=== PATIENT | female | born 1975 ===

== ENCOUNTER 2020-09-20 14:15 | Outpatient (REF) | payer OTHER, SELFPAY | END 2020-09-20 14:16 | disposition home or self-care (01) | LOC: HO.LAB 14:15 | PROVIDERS: Visit Provider Internal Medicine | DX: Z20.828 Contact with and (suspected) exposure to other viral communicable diseases (principal) | CPT/HCPCS: 36415; C9803; U0003 ==

== ENCOUNTER 2020-12-21 11:29 | Outpatient (REF) | payer OTHER, SELFPAY ==
--- NOTE | ~2020-12-21 | XR_ITS ---
EXAMINATION: XR CHEST CLINICAL INFORMATION: Hypertension and palpitations COMPARISON: Previous chest x-ray August 2019 TECHNIQUE: 2 views of the chest were obtained. FINDINGS: No significant abnormality is noted involving the heart, lungs, mediastinum, bony thorax or soft tissues. XR/XR chest 2V IMPRESSION: Unremarkable examination.
== END 2020-12-21 11:30 | disposition home or self-care (01) ==
LOC: HO.XRAY 11:29
PROVIDERS: PCP Registered Nurse; Visit Provider Registered Nurse
DX: M62.830 Muscle spasm of back (principal); R00.2 Palpitations; I10 Essential (primary) hypertension
CPT/HCPCS: 71046

== ENCOUNTER 2021-01-17 11:16 | Outpatient (REF) | payer OTHER, SELFPAY ==
[2021-01-17 13:07] LABS: MANUAL DIFF FLAG NO
[2021-01-17 13:23] LABS: Basophils Percent Auto 0.4 % (0-2); Eosinophils Absolute Auto 0.3 X10*3/uL (0.0-0.4); Eosinophils Percent Auto 2.3 % (0-4); Hematocrit 47.1 % (37-47); Imm Gran Abs Auto 0.03 X10*3/uL (0.00-0.03); Imm Gran Pct Auto 0.3 % (0.0-0.4); Lymphocytes Absolute Auto 2.1 X10*3/uL (1.2-4.9); Lymphocytes Percent Auto 19.9 % (20-40); Mean Corpuscular Hemoglobin 30.1 pg (27.0-33.0); Mean Corpuscular Volume 88.5 fL (80-98); Mean Platelet Volume 11.4 fL (9.4-12.3); Monocytes Absolute Auto 0.7 X10*3/uL (0.1-1.2); Monocytes Percent Auto 6.6 % (2-11); Neutrophils Absolute Auto 7.6 X10*3/uL (2.0-8.3); Neutrophils Percent Auto 70.5 % (45-73); Platelet Count 232 X10*3/uL (160-400); Red Blood Count 5.32 X10*6/uL (4.20-5.50); Red Cell Distribution Width 12.7 % (11.0-16.0); White Blood Count 10.7 X10*3/uL (4.8-10.8)
[2021-01-17 13:45] LABS: Anion Gap 10 (12-20); Blood Urea Nitrogen 11 mg/dL (9-16); Carbon Dioxide 28 mmol/L (22-29); Chloride 107 mmol/L (96-108); Estimated Glomerular Filt Rate > 60; Glucose Random 105 mg/dL (60-115); Potassium 4.2 mmol/L (3.3-5.1); Sodium 141 mmol/L (135-145)
== END 2021-01-17 11:17 | disposition home or self-care (01) ==
LOC: HO.LAB 11:16
PROVIDERS: PCP Registered Nurse; Visit Provider Internal Medicine
DX: B94.8 Sequelae of other specified infectious and parasitic diseases (principal); R63.4 Abnormal weight loss; M54.9 Dorsalgia, unspecified; R06.02 Shortness of breath; G35 Multiple sclerosis; F17.210 Nicotine dependence, cigarettes, uncomplicated; Z88.0 Allergy status to penicillin; Z91.013 Allergy to seafood; Z79.52 Long term (current) use of systemic steroids; Z79.899 Other long term (current) drug therapy
CPT/HCPCS: 36415; 80048; 85025; 99202

== ENCOUNTER → 2021-02-07 11:41 | Outpatient (BNVA) | payer OTHER, SELFPAY | PROVIDERS: PCP Registered Nurse; Visit Provider Internal Medicine | DX: R06.00 Dyspnea, unspecified (principal); F17.200 Nicotine dependence, unspecified, uncomplicated; B94.8 Sequelae of other specified infectious and parasitic diseases; M54.9 Dorsalgia, unspecified | CPT/HCPCS: 99212 ==

== ENCOUNTER 2021-02-25 11:01 | Outpatient (REF) | payer OTHER, SELFPAY | END 2021-02-25 11:02 | disposition home or self-care (01) | LOC: HO.RESP 11:01 | PROVIDERS: PCP Registered Nurse; Visit Provider Internal Medicine | DX: R06.00 Dyspnea, unspecified (principal); F17.200 Nicotine dependence, unspecified, uncomplicated | CPT/HCPCS: 94060; 94727; 94729 ==

== ENCOUNTER → 2021-03-17 09:08 | Outpatient (REF) | payer OTHER, SELFPAY | LOC: HO.CARD 09:08 | PROVIDERS: Visit Provider Internal Medicine Cardiovascular Disease | DX: R07.9 Chest pain, unspecified (principal); R06.02 Shortness of breath | CPT/HCPCS: 93017 ==

== ENCOUNTER → 2021-03-30 09:52 | Outpatient (REF) | payer OTHER, SELFPAY ==
--- NOTE | ~2021-03-30 | NM_ITS ---
Myocardial perfusion study Indication: Chest pain to evaluate for myocardial ischemia Technique: The patient was brought in for a Lexiscan perfusion study on 03/30/2021. Patient performed low-level exercise and was injected 0.4 mg of Lexiscan intravenously. Within a minute of injection, 25 mCi of sestamibi was given intravenously. Images were obtained using the SPECT gamma camera interlaced with the gating device. Images were obtained in supine position. Resting perfusion study was performed on 03/31/2021. Patient was administered 25 mCi of sestamibi intravenously at rest. Images were then obtained in supine position. Images obtained with and without CT attenuation. Total DLP 190 mGy-cm Images were processed with the software and compared side to side in short axis, horizontal long axis and vertical long axis views. Findings: The stress perfusion study showed nonattenuated images show moderately to severely reduced uptake in the distal lateral, distal anterior as well as mid inferolateral wall of the LV myocardium. Is also mildly reduced uptake in the apex of the LV myocardium attenuation corrected images show mildly reduced uptake in the anterior and apical wall of the LV myocardium.. The gated study shows normal LV systolic function with calculated LVEF of 66%. LV cavity is normal in size. The gated study shows normal systolic wall thickening and contraction of segments. Resting study shows nonattenuated images show prominent in the distal lateral, distal, mid anterolateral wall of the LV myocardium. Uptake is unchanged. Attenuation corrected images are suboptimal with severely reduced uptake in the distal anterior, moderately reduced uptake in the apex of the LV myocardium.. Gating at rest reveals normal systolic wall motion with visually estimated ejection fraction at greater than 60%. The findings are consistent with equivocal findings. Attenuation corrected images show reversal position, however nonattenuated images show reversible defect in the distal lateral, anterior and mid anterolateral wall suggestive of ischemia in the mid to distal LAD territory. NM/NM leroy perf SPECT rest & str Impression: 1. Myocardial perfusion imaging study shows possible ischemia in mid to distal LAD territory 2. Gated LVEF is 66% 3. Transient ischemic dilatation not present EKG is nondiagnostic for ischemia
--- NOTE | 2021-03-30 10:00 | CA_ITS ---
Acquisition Time: 2021-03-30 10:16:45 Total Exercise Time: 00:02:00 Test Indications: Dyspnea Medications: LORAZAPAM ATOIRVASTATIN AMLODIPINE PREDNISONE TOPIRAMATE Protocol: LEXISCAN Max HR: 101 BPM 58% of Pred: 173 BPM Max BP: 106/064 mmHG Max Work Load: 1.0 METS Pharmacological stress test using Lexiscan while sitting and kicking her L foot. Pt tolerated well denies any anginal sx. EKG without arrhythmias, non-diagnostic for ischemia. Nuclear images to follow. Normotensive response to test. Test reviewed with Dr. Del Angel. Referred By: Jose Ashby Overread By: Isatu Diallo NP
== END ==
LOC: HO.CARD 09:52
PROVIDERS: Visit Provider Internal Medicine Cardiovascular Disease
DX: R07.9 Chest pain, unspecified (principal); R06.02 Shortness of breath
CPT/HCPCS: 78452; 93017; A9500; J0280; J2785

== ENCOUNTER 2021-05-10 07:18 | Emergency (ER) | payer OTHER, SELFPAY ==
--- NOTE | ~2021-05-10 | US_ITS ---
EXAMINATION: US PELVIS CLINICAL INFORMATION: Pelvic pain with vaginal bleeding COMPARISON: Ultrasound pelvis 10/17/2018. TECHNIQUE: Ultrasound of the pelvis is performed using both transabdominal and transvaginal transducers along with Doppler. Transvaginal imaging is performed due to inadequate visualization transabdominally. FINDINGS: The uterus is anteverted and retroflexed measuring 10.1 cm in length, 3.2 cm in AP and 5.6 cm in transverse dimension. Previously visualized fundal fibroid is not seen at this time. However there is heterogeneous area in the fundus. Endometrial thickness measures 0.4 cm. The right ovary measures 3.9 x 2.5 x 2 0.9 mL in volume 14.8 mL. There is anechoic cyst measuring 2.9 x 2.2 x 2.2 cm. Previously right ovary measured 3.4 x 3.1 x 2.4 cm and volume 12.9 mL. The left ovary measures 1.6 x 1.3 x 1.6 cm and volume 1.7 mL. Previously left ovary measured 2.2 x 1.2 x 2.2 cm and volume 2.9 mL. US/US pelvic and transvaginal IMPRESSION: 2.9 cm right ovarian cyst. Otherwise ovary is unremarkable. The uterus is unremarkable.
--- NOTE | 2021-05-10 07:53 | ED.ABDPAIN ---
HPI - Abdominal Pain General Chief Complaint: Abdominal Pain Stated Complaint: abdominal pain Time Seen by Provider: 05/10/21 07:52 Source: patient and EMS Mode of arrival: EMS Limitations: no limitations History of Present Illness HPI narrative: 45 yo female with low back pain, pelvic pain new onset of vaginal bleeding though her last menses was over 7 years ago, c/o cramping and sweating at night MD elicited complaint: abdominal pain Pertinent past history: none Onset (ago): day(s) (7) Pain Consistency: intermittent Location: suprapubic Severity: moderate Quality: cramping Radiation: none Migration to: no migration Exacerbating factors: nothing Relieving factors: nothing Associated symptoms: other (vaginal bleeding ) Related Data Home Medications Medication Instructions Recorded Confirmed albuterol sulfate 2.5 mg INHALATION Q4-6H PRN 01/17/21 albuterol sulfate 90 mcg/actuation 1 inh INHALATION QID 01/17/21 aerosol inhaler amlodipine 10 mg tablet 10 mg PO DAILY 01/17/21 aspirin 81 mg tablet,delayed 81 mg PO DAILY 01/17/21 release atorvastatin 20 mg tablet 20 mg PO BEDTIME 01/17/21 calcium polycarbophil 625 mg 1,250 mg PO DAILY 01/17/21 tablet (Fiber Laxative (calcium polycarbophil)) cholecalciferol (vitamin D3) 50 50 mcg PO DAILY 01/17/21 mcg (2,000 unit) capsule cyanocobalamin (vitamin B-12) 1,000 mcg PO DAILY 01/17/21 1,000 mcg capsule entecavir 1 mg tablet 1 mg PO DAILY 01/17/21 ibuprofen 600 mg tablet 600 mg PO Q8H PRN 01/17/21 levetiracetam 750 mg tablet 1,250 mg PO DAILY tab 01/17/21 lorazepam 1 mg tablet 1 mg PO TID PRN 01/17/21 mirtazapine 30 mg tablet 30 mg PO BEDTIME 01/17/21 naproxen 500 mg tablet 500 mg PO BID 01/17/21 prednisone 10 mg tablet 10 mg PO DAILY 01/17/21 topiramate 50 mg tablet 150 mg PO DAILY tab 01/17/21 Previous Rx's Medication Instructions Recorded cyclobenzaprine 10 mg tablet 10 mg PO TID PRN #14 tab 05/10/21 ondansetron 4 mg disintegrating 4 mg PO Q8H PRN #20 tab 05/10/21 tablet Allergies Allergy/AdvReac Type Severity Reaction Status Date / Time Penicillins [PENICILLINS] Allergy Severe HIVES Verified 02/07/21 11:50 sardine Allergy Unknown rash Uncoded 01/17/21 11:39 Review of Systems Review of Systems Constitutional : No Fever, No Chills ENT/Mouth : No sore throat, No Rhinorrhea Eyes: No Eye Pain, No Redness Cardiovascular : No Chest Pain, No SOB Respiratory : No Cough, No Sputum, No Wheezing Gastrointestinal : no Nausea, No Vomiting, No Diarrhea, positive abdominal pain, Genitourinary : positive irregular bleeding, No Dysuria, No Urinary Frequency, positive pelvic pain Musculoskeletal : No Myalgias, pos back pain Skin : No rash Neuro : No Weakness, No Headache Psych : No Anxiety/Panic, No Depression Heme/Lymph: No bruising, No Lymphadenopathy Endocrine : No Polyuria, No Polydipsia All other systems reviewed and are negative Physical Exam Vital Signs: Vital Signs: Last Vital Signs Temp 99.2 F 05/10/21 08:16 Pulse 94 05/10/21 08:16 Resp 18 05/10/21 08:16 BP 133/69 05/10/21 08:16 Pulse Ox 98 05/10/21 08:16 Body Mass Index 33.3 Appearance: Alert. Oriented X3. No acute distress. Eyes: Pupils equal, round and reactive to light. ENT: Pharynx normal. Neck: Normal inspection. Neck supple. CVS: Normal heart rate and rhythm. Pulses normal. Respiratory: No respiratory distress. Breath sounds normal. Abdomen: Soft and mild suprapubic ttp no rebound or guarding Back: no CVA ttp Skin: Skin warm and dry. Normal skin color. Normal skin turgor. Extremities: No lower extremity edema. No calf ttp Neuro: Oriented X 3. No motor deficit. No sensory deficit. Course Course Course Narrative: dehydration and ovarian cyst will need to follow up with OBGYN MDM - Abdominal Pain MDM Narrative Medical decision making narrative: 45 yo female with low back pain no b/b incontinence, no saddle anesthesia no AC therapy. Has not had period in 7 years and started spotting again. At this time will need labs, UA, pelvic US for mass. PO pain control suspect po DUB vs mass Lab Data Result diagrams: 05/10/21 09:11 05/10/21 09:11 Labs: Lab Results 05/10/21 05/10/21 05/10/21 Range/Units 09:11 09:11 09:11 WBC 9.3 (4.8-10.8) X10*3/uL RBC 4.67 (4.20-5.50) X10*6/uL Hgb 13.9 (12.0-16.0) g/dl Hct 40.4 (37-47) % MCV 86.5 (80-98) fL MCH 29.8 (27.0-33.0) pg MCHC 34.4 (31.0-35.0) g/dl RDW 12.8 (11.0-16.0) % Plt Count 167 D (160-400) X10*3/uL MPV 10.5 (9.4-12.3) fL Immature Gran % (Auto) 0.4 (0.0-0.4) % Neut % (Auto) 84.5 H (45-73) % Lymph % (Auto) 6.9 L (20-40) % Summers % (Auto) 7.7 (2-11) % Eos % (Auto) 0.1 (0-4) % Baso % (Auto) 0.4 (0-2) % Lymph # (Auto) 0.6 L (1.2-4.9) X10*3/uL Summers # (Auto) 0.7 (0.1-1.2) X10*3/uL Eos # (Auto) 0.0 (0.0-0.4) X10*3/uL Baso # (Auto) 0.0 (0.0-0.2) X10*3/uL Abs Immat Gran (auto) 0.04 H (0.00-0.03) X10*3/uL Absolute Neuts (auto) 7.9 (2.0-8.3) X10*3/uL Absolute Nucleated RBC 0.000 (0.0-0.012) X10*3/uL Nucleated RBC % (auto) 0.0 (0.0-0.2) /100WBC PT 14.2 H (9.9-13.0) SEC INR 1.2 H (0.9-1.1) APTT 31.6 (24.1-38.0) SEC Sodium 147 H (135-145) mmol/L Potassium 3.6 (3.3-5.1) mmol/L Chloride 116 H (96-108) mmol/L Carbon Dioxide 19 L (22-29) mmol/L Anion Gap 16 (12-20) BUN 9 (9-16) mg/dL Creatinine 0.80 (0.5-1.4) mg/dL Estim Creat Clear Calc 86.5 Estimated GFR > 60 Random Glucose 125 H (60-115) mg/dL Calcium 8.8 D (8.4-10.2) mg/dL Total Bilirubin 0.5 (0.0-1.0) mg/dL Direct Bilirubin 0.2 (0.0-0.5) mg/dL AST 13 (5-31) U/L ALT 17 (0-31) U/L Alkaline Phosphatase 76 (39-117) U/L Total Protein 6.6 (6.5-8.0) g/dL Albumin 4.1 (3.5-5.0) g/dL Urine Color Urine Appearance Urine pH (5.0-8.0) Ur Specific [place] (1.005-1.025) Urine Protein (NEG-TRACE) MG/DL Urine Glucose (UA) (NEG) MG/DL Urine Ketones (NEG) MG/DL Urine Blood (NEG) Urine Nitrite (NEG) Ur Leukocyte Esterase (NEG) Urine RBC (0) /HPF Urine WBC (0-4) /HPF Ur Squamous Epith Cells /LPF Urine Bacteria /LPF COVID-19 ([facility]) (Negative) COVID-19 Clin Com 05/10/21 05/10/21 Range/Units 09:23 09:23 WBC (4.8-10.8) X10*3/uL RBC (4.20-5.50) X10*6/uL Hgb (12.0-16.0) g/dl Hct (37-47) % MCV (80-98) fL MCH (27.0-33.0) pg MCHC (31.0-35.0) g/dl RDW (11.0-16.0) % Plt Count (160-400) X10*3/uL MPV (9.4-12.3) fL Immature Gran % (Auto) (0.0-0.4) % Neut % (Auto) (45-73) % Lymph % (Auto) (20-40) % Summers % (Auto) (2-11) % Eos % (Auto) (0-4) % Baso % (Auto) (0-2) % Lymph # (Auto) (1.2-4.9) X10*3/uL Summers # (Auto) (0.1-1.2) X10*3/uL Eos # (Auto) (0.0-0.4) X10*3/uL Baso # (Auto) (0.0-0.2) X10*3/uL Abs Immat Gran (auto) (0.00-0.03) X10*3/uL Absolute Neuts (auto) (2.0-8.3) X10*3/uL Absolute Nucleated RBC (0.0-0.012) X10*3/uL Nucleated RBC % (auto) (0.0-0.2) /100WBC PT (9.9-13.0) SEC INR (0.9-1.1) APTT (24.1-38.0) SEC Sodium (135-145) mmol/L Potassium (3.3-5.1) mmol/L Chloride (96-108) mmol/L Carbon Dioxide (22-29) mmol/L Anion Gap (12-20) BUN (9-16) mg/dL Creatinine (0.5-1.4) mg/dL Estim Creat Clear Calc Estimated GFR Random Glucose (60-115) mg/dL Calcium (8.4-10.2) mg/dL Total Bilirubin (0.0-1.0) mg/dL Direct Bilirubin (0.0-0.5) mg/dL AST (5-31) U/L ALT (0-31) U/L Alkaline Phosphatase (39-117) U/L Total Protein (6.5-8.0) g/dL Albumin (3.5-5.0) g/dL Urine Color COLORLESS Urine Appearance CLEAR Urine pH 6.0 (5.0-8.0) Ur Specific [place] <= 1.005 (1.005-1.025) Urine Protein NEG (NEG-TRACE) MG/DL Urine Glucose (UA) NEG (NEG) MG/DL Urine Ketones NEG (NEG) MG/DL Urine Blood 1+ H (NEG) Urine Nitrite NEG (NEG) Ur Leukocyte Esterase TRACE H (NEG) Urine RBC 0 (0) /HPF Urine WBC 1-4 (0-4) /HPF Ur Squamous Epith Cells TRACE /LPF Urine Bacteria NONE /LPF COVID-19 ([facility]) Negative (Negative) COVID-19 Clin Com See Note Discharge Plan Discharge Clinical Impression: Acute dehydration, Ovarian cyst, DUB (dysfunctional uterine bleeding) Patient Disposition: Home, Self-Care Instructions: Dysfunctional Uterine Bleeding (ED), Ovarian Cyst (ED), Dehydration (ED) Additional Instructions: return to ED for any worsening symptoms or concerns you need to follow up with OBGYN you need to drink 60 ounces of water a day for the next 3 days you are dehydrated Prescriptions: New cyclobenzaprine 10 mg tablet 10 mg PO TID PRN (Reason: muscle spasm) Qty: 14 RF: 0 ondansetron 4 mg tablet,disintegrating 4 mg PO Q8H PRN (Reason: nausea and vomiting) Qty: 20 RF: 0 No Action levetiracetam 750 mg tablet 1,250 mg PO DAILY RF: 0 mirtazapine 30 mg tablet 30 mg PO BEDTIME RF: 0 topiramate 50 mg tablet 150 mg PO DAILY RF: 0 prednisone 10 mg tablet 10 mg PO DAILY RF: 0 entecavir 1 mg tablet 1 mg PO DAILY RF: 0 naproxen 500 mg tablet 500 mg PO BID RF: 0 albuterol sulfate 90 mcg/actuation HFA aerosol inhaler 1 inh inhalation QID RF: 0 cyanocobalamin (vitamin B-12) 1,000 mcg capsule 1,000 mcg PO DAILY RF: 0 amlodipine 10 mg tablet 10 mg PO DAILY RF: 0 atorvastatin 20 mg tablet 20 mg PO BEDTIME RF: 0 aspirin 81 mg tablet,delayed release (DR/EC) 81 mg PO DAILY RF: 0 calcium polycarbophil [Fiber Laxative (ca polycarbo)] 625 mg tablet 1,250 mg PO DAILY RF: 0 cholecalciferol (vitamin D3) 50 mcg (2,000 unit) capsule 50 mcg PO DAILY RF: 0 ibuprofen 600 mg tablet 600 mg PO Q8H PRNRF: 0 lorazepam 1 mg tablet 1 mg PO TID PRNRF: 0 albuterol sulfate 2.5 mg /3 mL (0.083 %) solution for nebulization 2.5 mg inhalation Q4-6H PRNRF: 0 Referrals: David Perera MD [Physician] - 2 weeks (call for appointment in next 2 weeks) [facility] Past Medical History Attestation statement: The following information was validated with the patient. Medical History Back pain Dyspnea on exertion Post-COVID syndrome Smoker Weight loss, unintentional Social History Social History Patient Tobacco Use Status: Current everyday Tobacco user Cigarette Packs Per Day: 0.5 Years Smoked: 28 years Use of substances other than those prescribed or required for medical reasons: No Advance Directives: No Advance Directives Information Provided: No
[2021-05-10 08:04] VITALS: BP 122/78; BP 133/69; PULSE 94; PULSE 98; RESP 16; TEMP 37.3; O2SAT 97; O2SAT 98; BMI 33.3
[2021-05-10] MEDS: HYDROcodone Bit/Acetam 5/325 TABLET 1 TAB PO (08:14)
[2021-05-10] MEDS: Ondansetron ODT 4 MG TAB.RAPDIS TRANSLINGU (08:15)
[2021-05-10] MEDS: Cyclobenzaprine HCl 10 MG TABLET PO (08:15)
[2021-05-10 08:16] VITALS: BP 133/69; PULSE 94; RESP 18; TEMP 37.3; O2SAT 98
[2021-05-10 09:15] LABS: MANUAL DIFF FLAG NO
[2021-05-10 09:16] LABS: Basophils Percent Auto 0.4 % (0-2); Eosinophils Percent Auto 0.1 % (0-4); Hematocrit 40.4 % (37-47); Hemoglobin 13.9 g/dl (12.0-16.0); Imm Gran Abs Auto 0.04 X10*3/uL (0.00-0.03); Imm Gran Pct Auto 0.4 % (0.0-0.4); Lymphocytes Absolute Auto 0.6 X10*3/uL (1.2-4.9); Lymphocytes Percent Auto 6.9 % (20-40); Mean Corpuscular HGB Conc 34.4 g/dl (31.0-35.0); Mean Corpuscular Hemoglobin 29.8 pg (27.0-33.0); Mean Corpuscular Volume 86.5 fL (80-98); Mean Platelet Volume 10.5 fL (9.4-12.3); Monocytes Absolute Auto 0.7 X10*3/uL (0.1-1.2); Monocytes Percent Auto 7.7 % (2-11); Neutrophils Absolute Auto 7.9 X10*3/uL (2.0-8.3); Neutrophils Percent Auto 84.5 % (45-73); Platelet Count 167 X10*3/uL (160-400); Red Blood Count 4.67 X10*6/uL (4.20-5.50); Red Cell Distribution Width 12.8 % (11.0-16.0); White Blood Count 9.3 X10*3/uL (4.8-10.8)
[2021-05-10 09:23] LABS: INTERNATIONAL NORM RATIO 1.2 (0.9-1.1); Prothrombin Time 14.2 SEC (9.9-13.0)
[2021-05-10 09:25] LABS: Partial Thromboplastin Time 31.6 SEC (24.1-38.0)
[2021-05-10 09:45] LABS: Glucose Urine UA NEG (NEG); Leukocyte Esterase Urine TRACE (NEG); Nitrite Urine NEG (NEG); Specific Gravity - Urine <= 1.005 (1.005-1.025); UACC Culture Trigger YES; Urine Blood 1+ (NEG); Urine Ketones NEG (NEG); Urine Protein NEG (NEG-TRACE)
[2021-05-10 09:48] LABS: Appearance Urine CLEAR; Color Urine COLORLESS
[2021-05-10 09:49] LABS: Alanine Aminotransferase 17 U/L (0-31); Albumin Level 4.1 g/dL (3.5-5.0); Alkaline Phosphatase 76 U/L (39-117); Anion Gap 16 (12-20); Aspartate Amino Transferase 13 U/L (5-31); Bilirubin Direct 0.2 mg/dL (0.0-0.5); Bilirubin Total 0.5 mg/dL (0.0-1.0); Blood Urea Nitrogen 9 mg/dL (9-16); Calcium 8.8 mg/dL (8.4-10.2); Carbon Dioxide 19 mmol/L (22-29); Chloride 116 mmol/L (96-108); Creatinine Clr Calc Pharmacy 86.5; Estimated Glomerular Filt Rate > 60; Glucose Random 125 mg/dL (60-115); Potassium 3.6 mmol/L (3.3-5.1); Sodium 147 mmol/L (135-145); Total Protein 6.6 g/dL (6.5-8.0)
[2021-05-10 09:56] LABS: RBC Urine 0 /HPF (0); Squamous Epithelial Cell Urine TRACE /LPF
[2021-05-10 09:59] LABS: COVID-19 Test Negative (Negative); IDNOW Serial# 9DD0AD1C
[2021-05-10 11:04] VITALS: BP 111/64; PULSE 85; RESP 18; O2SAT 97
== END 2021-05-10 11:08 | disposition home or self-care (01) ==
PROVIDERS: Emergency Provider Emergency Medicine
DX: E86.0 Dehydration (principal); N83.201 Unspecified ovarian cyst, right side; N93.8 Other specified abnormal uterine and vaginal bleeding; Z20.822 Contact with and (suspected) exposure to COVID-19; F17.210 Nicotine dependence, cigarettes, uncomplicated
CPT/HCPCS: 36415; 76830; 76856; 80048; 80076; 81001; 85025; 85610; 85730; 87086; 87088; 87186; 87635; 96360; 99284

== ENCOUNTER 2021-07-05 13:55 | Outpatient (REF) | payer OTHER, SELFPAY ==
[2021-07-06 11:12] LABS: CT PCR NOT DETECTED (Not Detect.); NG PCR NOT DETECTED (Not Detect.)
[2021-07-08 00:36] LABS: HPV mRNA E6/E7 rflx Not Detected (Not Detected)
== END 2021-07-05 13:56 | disposition home or self-care (01) ==
LOC: HO.LAB 13:55
PROVIDERS: Visit Provider Obstetrics & Gynecology
DX: Z01.419 Encounter for gynecological examination (general) (routine) without abnormal findings (principal); Z11.51 Encounter for screening for human papillomavirus (HPV); Z11.3 Encounter for screening for infections with a predominantly sexual mode of transmission; R10.2 Pelvic and perineal pain; N83.209 Unspecified ovarian cyst, unspecified side
CPT/HCPCS: 87491; 87591; 87624; 88142

== ENCOUNTER 2021-08-05 11:38 | Outpatient (REF) | payer OTHER, SELFPAY ==
--- NOTE | ~2021-08-05 | MM_ITS ---
EXAMINATION: MM SCREENING DIGITAL BREAST TOMOSYNTHESIS, BILATERAL CLINICAL INFORMATION: Screening. Asymptomatic. The lifetime risk of breast cancer based on the Tyrer-Cuzick Model is 6%. COMPARISON: Mammography: 07/08/2018, 10/16/2017, 08/29/2016 TECHNIQUE: Digital breast tomosynthesis is performed in both the craniocaudal and mediolateral oblique views along with computer-aided detection (CAD). Synthesized 2D images are generated from the tomosynthesis. FINDINGS: There are scattered areas of fibroglandular density (ACR BI-RADS breast composition Category b). There are no significant masses, abnormal calcifications, or other abnormalities. There is biopsy clip marker again noted retroareolar left breast. The axilla and skin contours are unremarkable. No significant changes from prior studies. MM/MM tomosynthesis screening BI IMPRESSION: No mammographic evidence of malignancy. ASSESSMENT: BI-RADS 1: Negative RECOMMENDATION: Routine annual mammography screening. This patient's information was entered into a reminder system with a target due date for their next mammogram.
== END 2021-08-05 11:39 | disposition home or self-care (01) ==
LOC: HO.MAMMO 11:38
PROVIDERS: Visit Provider Obstetrics & Gynecology
DX: Z12.31 Encounter for screening mammogram for malignant neoplasm of breast (principal)
CPT/HCPCS: 77063; 77067

== ENCOUNTER 2022-02-17 14:41 | Outpatient (REF) | payer OTHER, SELFPAY ==
[2022-02-17 15:16] LABS: COVID-19 Test Negative (Negative); IDNOW Serial# 16C4AD1C
== END 2022-02-17 14:42 | disposition home or self-care (01) ==
LOC: HO.LAB 14:41
PROVIDERS: Visit Provider Internal Medicine
DX: Z20.822 Contact with and (suspected) exposure to COVID-19 (principal)
CPT/HCPCS: 87635; C9803

== ENCOUNTER → 2022-10-03 13:19 | Outpatient (BNVA) | payer OTHER, SELFPAY | PROVIDERS: Visit Provider Obstetrics & Gynecology | DX: Z13.89 Encounter for screening for other disorder (principal) ==

== ENCOUNTER 2022-11-03 08:49 | Outpatient (REF) | payer OTHER, SELFPAY ==
--- NOTE | ~2022-11-03 | MM_ITS ---
EXAMINATION: MM SCREENING DIGITAL BREAST TOMOSYNTHESIS, BILATERAL CLINICAL INFORMATION: Screening. Asymptomatic. The lifetime risk of breast cancer based on the Tyrer-Cuzick Model is 11%. COMPARISON: Mammography: 08/05/2021, 11/08/2017, 10/16/2017 TECHNIQUE: Digital breast tomosynthesis is performed in both the craniocaudal and mediolateral oblique views along with computer-aided detection (CAD). Synthesized 2D images are generated from the tomosynthesis. FINDINGS: There are scattered areas of fibroglandular density (ACR BI-RADS breast composition Category b). There are no significant masses, abnormal calcifications, or other abnormalities. Parenchymal pattern is similar to prior studies. There is no developing density or architectural abnormality. There is a biopsy clip marker again seen retroareolar and outer left breast. The axilla and skin contours are unremarkable. No significant changes. MM/MM tomosynthesis screening BI IMPRESSION: No mammographic evidence of malignancy. ASSESSMENT: BI-RADS 1: Negative RECOMMENDATION: Routine annual mammography screening. This patient's information was entered into a reminder system with a target due date for their next mammogram.
== END 2022-11-03 08:50 | disposition home or self-care (01) ==
LOC: HO.MAMMO 08:49
PROVIDERS: PCP Nurse Practitioner Primary Care; Visit Provider Obstetrics & Gynecology
DX: Z12.31 Encounter for screening mammogram for malignant neoplasm of breast (principal)
CPT/HCPCS: 77063; 77067

== ENCOUNTER 2022-12-27 12:16 | Outpatient (REF) | payer OTHER, SELFPAY ==
[2022-12-27 14:44] LABS: Hematocrit 41.9 % (37.0-47.0); Hemoglobin 14.3 g/dl (12.0-16.0); Mean Corpuscular HGB Conc 34.1 g/dl (31.0-35.0); Mean Corpuscular Hemoglobin 30.4 pg (27.0-33.0); Mean Corpuscular Volume 89.1 fL (80.0-98.0); Mean Platelet Volume 11.4 fL (9.4-12.3); Platelet Count 195 X10*3/uL (160-400); Red Cell Distribution Width 12.6 % (11.0-16.0); White Blood Count 9.4 X10*3/uL (4.8-10.8)
[2022-12-27 15:00] LABS: Estimated Average Glucose 128 mg/dL; Hemoglobin A1c % 6.1 %
[2022-12-27 15:56] LABS: Alanine Aminotransferase 33 U/L (0-31); Albumin Level 4.5 g/dL (3.5-5.0); Alkaline Phosphatase 94 U/L (39-117); Anion Gap 15 (12-20); Aspartate Amino Transferase 18 U/L (5-31); Bilirubin Total 0.4 mg/dL (0.0-1.0); Blood Urea Nitrogen 17 mg/dL (9-16); Calcium 9.5 mg/dL (8.4-10.2); Carbon Dioxide 20 mmol/L (22-29); Chloride 110 mmol/L (96-108); Estimated Glomerular Filt Rate > 60; Glucose Random 161 mg/dL (60-115); Potassium 3.8 mmol/L (3.3-5.1); Sodium 141 mmol/L (135-145); Total Protein 6.9 g/dL (6.5-8.0)
[2022-12-27 16:27] LABS: Folate 7.9 ng/mL (> or = 4.0); TSH reflex Free T4 4.06 uIU/mL (0.32-4.0); Vitamin B12 520 pg/mL (200-900)
[2022-12-27 17:16] LABS: Free T4 (Free Thyroxine) 0.74 ng/dL (0.71-1.85)
[2023-01-01 15:23] LABS: Vitamin D 25-OH, D2 <4 ng/mL; Vitamin D 25-OH, D3 28 ng/mL; Vitamin D 25-OH, Total 28 ng/mL (30-100)
== END 2022-12-27 12:17 | disposition home or self-care (01) ==
LOC: HO.LAB 12:16
PROVIDERS: PCP Nurse Practitioner Primary Care; Visit Provider Nurse Practitioner Family
DX: K21.9 Gastro-esophageal reflux disease without esophagitis (principal); K59.04 Chronic idiopathic constipation; K58.1 Irritable bowel syndrome with constipation; E55.9 Vitamin D deficiency, unspecified; E11.9 Type 2 diabetes mellitus without complications; R19.7 Diarrhea, unspecified
CPT/HCPCS: 36415; 80053; 82306; 82607; 82746; 83036; 84439; 84443; 85027; 99202

== ENCOUNTER → 2023-01-26 11:17 | Outpatient (BNVA) | payer OTHER, SELFPAY | PROVIDERS: PCP Nurse Practitioner Primary Care; Visit Provider Nurse Practitioner Family | DX: Z12.11 Encounter for screening for malignant neoplasm of colon (principal); K21.9 Gastro-esophageal reflux disease without esophagitis; K59.01 Slow transit constipation | CPT/HCPCS: 99212 ==

== ENCOUNTER 2023-11-12 15:58 | Outpatient (REF) | payer OTHER, SELFPAY ==
--- NOTE | ~2023-11-12 | MM_ITS ---
EXAMINATION: MM SCREENING DIGITAL BREAST TOMOSYNTHESIS, BILATERAL CLINICAL INFORMATION: Screening. Asymptomatic. COMPARISON: Mammography: This study is compared with prior exams dating back to 2018. TECHNIQUE: Digital breast tomosynthesis is performed in both the craniocaudal and mediolateral oblique views along with computer-aided detection (CAD). Synthesized 2D images are generated from the tomosynthesis. FINDINGS: There are scattered areas of fibroglandular density (ACR BI-RADS breast composition Category b). There are no significant masses, abnormal calcifications, or other abnormalities. There is tissue marker in the left breast from prior benign percutaneous biopsy. MM/MM tomosynthesis screening BI IMPRESSION: No mammographic evidence of malignancy. ASSESSMENT: BI-RADS BI-RADS 2 - Benign Findings RECOMMENDATION: Routine annual mammography screening. 1 year F/U This examination should not preclude the clinical evaluation of a suspicious palpable abnormality. This patient's information was entered into a reminder system with a target due date for their next mammogram.
[2023-11-14 00:10] LABS: C. trachomatis RNA TMA NOT DETECTED (NOT DETECTED); Candida glabrata RNA NOT DETECTED (NOT DETECTED); Candida species RNA DETECTED (NOT DETECTED); N. gonorrhoeae RNA TMA NOT DETECTED (NOT DETECTED); Trichomonas vaginalis RNA NOT DETECTED (NOT DETECTED)
== END 2023-11-12 15:59 | disposition home or self-care (01) ==
LOC: HO.MAMMO 15:58
PROVIDERS: Student in an Organized Health Care Education/Training Program; PCP Nurse Practitioner Primary Care; Visit Provider Nurse Practitioner Primary Care
DX: Z12.31 Encounter for screening mammogram for malignant neoplasm of breast (principal); B37.31 Acute candidiasis of vulva and vagina
CPT/HCPCS: 36415; 77063; 77067; 81513; 87481; 87491; 87591; 87661

== ENCOUNTER → 2023-11-12 16:15 | Outpatient (BNV) | payer OTHER, SELFPAY | PROVIDERS: PCP Nurse Practitioner Primary Care; Visit Provider Radiology Diagnostic Radiology | DX: Z12.31 Encounter for screening mammogram for malignant neoplasm of breast (principal) | CPT/HCPCS: 77063; 77067 ==

== ENCOUNTER 2024-04-02 11:54 | Outpatient (REF) | payer OTHER, SELFPAY ==
[2024-04-02 12:22] LABS: Hematocrit 44.3 % (37.0-47.0); Hemoglobin 15.1 g/dl (12.0-16.0); Mean Corpuscular HGB Conc 34.1 g/dl (31.0-35.0); Mean Corpuscular Hemoglobin 30.3 pg (27.0-33.0); Mean Corpuscular Volume 88.8 fL (80.0-98.0); Mean Platelet Volume 10.5 fL (9.4-12.3); Platelet Count 225 X10*3/uL (160-400); Red Blood Count 4.99 X10*6/uL (4.20-5.50); Red Cell Distribution Width 13.2 % (11.0-16.0); White Blood Count 10.4 X10*3/uL (4.8-10.8)
[2024-04-02 12:34] LABS: Estimated Average Glucose 120 mg/dL; Hemoglobin A1C 152.2828 umol/L; Hemoglobin A1c % 5.8 % (<6.0)
[2024-04-02 13:55] LABS: Vitamin B12 456 pg/mL (200-900)
== END 2024-04-02 11:55 | disposition home or self-care (01) ==
LOC: HO.LAB 11:54
PROVIDERS: PCP Nurse Practitioner Primary Care; Visit Provider Nurse Practitioner Primary Care
DX: D72.829 Elevated white blood cell count, unspecified (principal); R73.01 Impaired fasting glucose; M79.2 Neuralgia and neuritis, unspecified
CPT/HCPCS: 36415; 82607; 83036; 85027

== ENCOUNTER 2024-04-29 09:48 | Outpatient (REF) | payer OTHER, SELFPAY | END 2024-04-29 09:49 | disposition home or self-care (01) | LOC: HO.NEURO 09:48 | PROVIDERS: PCP Nurse Practitioner Primary Care; Visit Provider Nurse Practitioner Primary Care | DX: Z13.89 Encounter for screening for other disorder (principal) ==

== ENCOUNTER 2024-06-09 14:21 | Outpatient (REF) | payer OTHER, SELFPAY ==
--- NOTE | ~2024-06-09 | XR_ITS ---
EXAMINATION: XR CHEST CLINICAL INFORMATION: Cough. Wheezing. Asthma. COMPARISON: Chest x-ray December 21, 2020 TECHNIQUE: 2 views of the chest were obtained. FINDINGS: No significant abnormality is noted involving the heart, lungs, mediastinum, bony thorax or soft tissues. XR/XR chest 2V IMPRESSION: Unremarkable examination. Electronically signed by: Dionisio Campos MD 06/09/2024 03:52 PM EDT RP
== END 2024-06-09 14:22 | disposition home or self-care (01) ==
LOC: HO.HHCX 14:21
PROVIDERS: Visit Provider Nurse Practitioner Family
DX: R05.9 Cough, unspecified (principal); J44.1 Chronic obstructive pulmonary disease with (acute) exacerbation; F17.200 Nicotine dependence, unspecified, uncomplicated
CPT/HCPCS: 71046

== ENCOUNTER 2024-07-24 11:17 | Outpatient (AMB) | payer OTHER, SELFPAY ==
--- NOTE | 2024-07-24 11:19 | MHC.OFFVIS ---
Vital Signs 07/24/24 11:30 Height 5 ft 2 in Weight 189 lb 6 oz BMI 34.6 BP 122/80 Blood Pressure Location Lt brachial Position Sitting Pulse 94 Pulse Source Pulse Oximeter Pulse Oximetry (%) 97 Oxygen Delivery Method Room Air Intake Visit Reasons: Neuropathic pain Intake Note: Pain today 05/27 Energy Conservation Director Required: Yes Energy Conservation Director Language: Ethanol Operations Manager Name: Almita- TECHNICAL SERVICES COORDINATOR Accompanied by: TECHNICAL SERVICES COORDINATOR Allergies Penicillins [PENICILLINS] Allergy (Severe, Verified 07/24/24 11:27) HIVES gabapentin Allergy (Unknown, Verified 07/24/24 11:27) Swelling sardine Allergy (Unknown, Uncoded 01/26/23 11:31) rash HPI HPI Neuropathic pain: Details: Patient is a pleasant 48 years old Nigerien speaking female with history of multiple sclerosis, spasticity, seizure disorder, low back pain, mild thoracolumbar levoscoliosis, L4-L5 anterior spondylolisthesis and facet athropathy, h/o lumbar synovial cyst removal, fibromyalgia, poor sleep, obesity, Bipolar disorder, presents today for initial evaluation of axial low back pain and widespread body pain. Patient reports increasing falls for the past month due to gait imbalances and right sided weakness with MS. She completed formal physical therapy about 2 years ago and is interested in home PT. She is followed by Neurology at [facility] for MS and has repeat brain and cervical spine MRI in December 2024. MS is treated with ofatumumab, prednisone 20 mg day before and 10 mg day of Kesimpta injection. Reports recent loss of her mom in April 2024 which has been physically and emotionally stressful for her. Patient reports daily chronic pain negatively affects her ADLs, functioning, mobility, sleep, mood, social interactions and quality of life. Patient completed multiple medication trials, including gabapentin which caused her bilateral leg swelling. Currently she is on amitrityline, baclofen, duloxetine, Ibuprofen, naproxen, and mirtazapine with continued chronic pain. Denies any fever or chills, abdominal or groin pain, dizziness, shortness of breaths, bladder or bowel dysfunction or saddle anesthesia. Location: Low back pain, widespread body pain Duration: Chronic pain since 2016 Characteristics of symptom or complaint: Aching, shooting, burning, throbbing, sharp, spasming, tingling Aggravating or associated factors: Any movement, walking, standing, prolonged sitting, cold weather, stress Relieving factors: Nothing multiple oral medication trials Treatment: PT, MS follow up at [facility] Neurology, TECHNICAL SERVICES COORDINATOR services, cane [facility] Medical History (Updated 07/25/24 @ 21:39 by CLAY Samayoa) Multiple sclerosis Smoker Dyspnea on exertion Back pain Weight loss, unintentional Post-COVID syndrome Surgical History H/O shoulder surgery Tubal ligation status Hx of section Family History Paternal Aunt Breast CA Social History (Updated 07/24/24 @ 11:30 by Annette Ruiz) Household Members: None Housing: Apartment Alcohol intake: never Patient Tobacco Use Status: Current everyday Tobacco user Cigarette Packs Per Day: 0.5 Cigarettes Per Day: 10 Years Smoked: 28 years Substance Use Type: Marijuana Current occupational status: disabled Sexual orientation: Straight/Heterosexual Gender identity: Female Female Reproductive History Menstrual Age of Menarche: 10 Review of Systems Const All systems reviewed & are unremarkable except as noted in HPI and below Physical Exam Vital Signs: Last Vital Signs Pulse 94 07/24/24 11:30 BP 122/80 07/24/24 11:30 Pulse Ox 97 07/24/24 11:30 Oxygen Delivery Method Room Air 07/24/24 11:30 BMI result Body Mass Index 34.6 General: Appears afebrile. Alert and oriented. Mood and affect appropriate. Follows and participates in conversation appropriately. Respiratory effort is unlabored. No cough. Able to transition from sit to stand unassisted. Ambulates with assistance of TECHNICAL SERVICES COORDINATOR. Reports using cane at home. General: Yes no CVA tenderness Back/Spine/Pelvis Other: Limited lumbar ROM due to pain, antalgic gait with limping. Demonstrates 5/5 left and 4/5 right strength of quadriceps bilaterally as well as flexion/dorsiflexion of bilateral feet against resistance. No midline tenderness to palpation in the thoracic or lumbar spine. 2+ pedal pulses bilaterally. Straight leg rise with dorsiflexion negative bilaterally. Diminished patellar and achilles reflexes bilaterally. Facet loading test positive bilaterally. Zechariah sign, Bradly?s, Pelvic compression and Stinchfield tests are positive bilaterally. No groin pain with I/E hip rotations. Valsalva maneuver negative. Multiple widespread TTPs 16/16 bilaterally, including upper and lower extremities. Back: no CVA tenderness Cervical Spine: loss of normal cervical lordosis, cervical muscular tenderness, pain with cervical ROM, cervical spasm and No Cervical spine tenderness Thoracic/Lumbar Spine: thoracic and lumbar spine normal to inspection, Thoracic/lumbar spine scar(s), Lasegue's sign negative, straight leg raise negative bilaterally, pain with thoraco-lumbar ROM, paraspinal muscle tenderness, thoraco-lumbar ROM limited, Thoracic/lumbar scoliosis, No thoracic spinal tenderness and lumbar spinal tenderness (L4-S1) Pelvis: buttock tenderness bilaterally Sacroiliac joints: bilaterally tender to palpation Extrem General: Yes capillary refill normal, Yes no clubbing, cyanosis or edema and Yes no calf tenderness Results Reviewed Results Reviewed: XR CERVICAL SPINE 11/19/2019 CLINICAL INFORMATION: Neck pain status post injury. FINDINGS: There is straightening of the normal cervical lordosis with normal spinal alignment. The vertebral bodies are intact. The intervertebral disc spaces are unremarkable. The odontoid process is intact. There is no acute fracture. The prevertebral soft tissues are unremarkable. IMPRESSION: 1. Straightening of the normal cervical lordosis may be secondary to positioning and/or muscle spasm. No acute fracture or significant degenerative changes. MR LUMBAR SPINE WITHOUT AND WITH CONTRAST 03/03/2018 CLINICAL INFORMATION: Back pain. COMPARISON: MRI lumbar spine 04/13/2016. MRI lumbar spine 07/23/2013. TECHNIQUE: MRI of the lumbar spine was obtained using routine sequences with and without contrast. Intravenous contrast: Gadavist 8.5 mL FINDINGS: VERTEBRAL BODIES AND PARASPINAL STRUCTURES: 5 lumbar type vertebral bodies are identified and are normal in height, and alignment. Mild endplate discogenic marrow signal changes are present adjacent to the L5-S1 intervertebral disc. Mild paraspinous soft tissue inflammatory changes are present adjacent to the left and right L4-L5 facet joints which demonstrate moderate facet hypertrophic changes. CONUS MEDULLARIS AND CAUDA EQUINA: Normal, terminating at the level of L1-L2.. SPINAL LEVELS: T12-L1: Normal. Normal intervertebral disc. No central or foraminal stenoses. L1-L2: Normal L2-L3: Normal L3-L4: Minimal bilateral ligamentum flavum hypertrophy. L4-L5: An 11 mm diameter rounded predominantly low T1 and low T2-weighted focus is contiguous with the anterior aspect of the left L4-L5 facet joint resulting in near complete effacement of the adjacent left subarticular recess and medial displacement of the right L5 nerve roots. The L4-L5 intervertebral disc demonstrates minimal bilateral intraforaminal disc protrusions. The annulus of the disc appears intact and the intervertebral disc demonstrates normal height and normal signal intensity of the nucleus pulposus. The predominantly low signal focus described above demonstrates several areas of focal T2 hyperintensity and appears to exhibit a peripheral low signal intensity rim (axial T2 FSE series 5 image 18/27). Moderate bilateral facet hypertrophic degenerative changes are present and trace fluid is present in the left and right facet joints at L4-L5. This lesion demonstrates mild peripheral enhancement and soft tissue enhancement is noted adjacent to the left and right facet joints. L5-S1: Mild posterior broad-based disc bulge with punctate T2 hyperintensity noted in the right parasagittal of the disc bulge which may represent an annular fissure. No associated direct nerve root impingement. IMPRESSION: 1. Single 11 mm diameter lesion at the level of L4-L5 as described above resulting in direct left L5 nerve root impingement within the left L4-L5 subarticular recess. This finding is suspicious for a complex synovial cyst emanating from the anterior aspect of the left L4-L5 facet joint. The differential diagnosis includes a disc extrusion. However, the adjacent L4-L5 intervertebral disc demonstrates no disruption of the annulus or gross evidence of an associated extrusion. Furthermore, the signal intensity of this 11 mm diameter region has features suggesting a low signal peripheral rim and areas of central fluid signal intensity which favors the diagnosis of a synovial cyst. The low signal intensity within this lesion may represent areas of gas/calcification or ligamentum flavum hypertrophy associated with the synovial cyst. This lesion does not have the typical appearance of an epidural abscess given the absence of extensive adjacent epidural inflammatory changes and the predominantly low (T2-weighted) signal signal intensity of the lesion. This result was discussed with TETO CRAWFORD MD by telephone at 03/03/2018 11:17 AM and it was ascertained that the content and urgency of the report was understood at the time of direct communication. XR LUMBOSACRAL SPINE 01/04/2018 CLINICAL INFORMATION: Lower back pain COMPARISON: August 05, 2015 FINDINGS: There are 5 nonrib bearing lumbar vertebra. The bony texture and alignment satisfactory. Disc spaces are maintained. No acute fracture, spondylolisthesis, or spondylolysis identified. There is increased sclerosis seen involving the left sacroiliac joint unchanged from prior study. IMPRESSION: No significant bony abnormality of the lumbar spine identified. Stable increased sclerosis left sacroiliac joint may be related to osteitis. MR CERVICAL SPINE WITHOUT AND WITH CONTRAST MR THORACIC SPINE WITHOUT AND WITH CONTRAST 05/31/2017 CLINICAL INFORMATION: 41-year-old woman with multiple sclerosis. COMPARISON: 03/08/2017 brain MRI TECHNIQUE: MRI of the cervical and thoracic spine was obtained using routine sequences without and with contrast. Intravenous contrast: Gadavist 9 mL. FINDINGS: CERVICAL SPINE: Alignment of the cervical spine remains anatomic. Vertebral bodies are normal in height and bone marrow is normal in signal intensity on all sequences. There is mild loss of normal disc height at C4-C5. A T2 hyperintense lesion is seen in the right lateral cord at the cervicomedullary junction. A smaller focus of T2 hyperintense signal is seen within the right medial cord at C2-C3. A 5 mm lesion is noted in the right dorsal lateral cord at C5-C6. There is T2 hyperintense signal in the central ventral cord at the C6 level and in the left lateral cord at the C7 level. None of these lesions demonstrate abnormal enhancement on postcontrast sequences. Aside from a minimal soft disc bulge at C4-C5, the disc contours are normal. No significant canal or foraminal stenosis is noted at any level. THORACIC SPINE: On the sagittal images, alignment of the thoracic spine remains anatomic. Vertebral bodies are normal in height and bone marrow is normal in signal intensity on all sequences. The intervertebral discs remain normally hydrated and maintain normal volumes. No focal disc derangement is seen at any level. Facet arthrosis contributes to mild narrowing of the left T6-T7 neural foramen. The central canal and neural foramina are otherwise widely patent throughout the thoracic spine. Central canal and neural foramina are widely patent throughout the thoracic spine. There is subtle increased T2 signal in the dorsal cord on both sides of midline at the T3-T4 level. There may be subtle attenuation of normal cord diameter at this level as well. No other definite discrete T2 hyperintense foci are seen in the thoracic spinal cord. No pathologic intramedullary, leptomeningeal, or epidural enhancement is noted on postcontrast sequences. IMPRESSION: Numerous nonenhancing T2 hyperintense lesions are seen in the cervical and thoracic spinal cord, consistent with the patient's history of multiple sclerosis Assessment & Plan Assessment & Plan (1) Back pain: Comment: PAIN IN THE LEFT THORACIC AREA IS MOST LIKELY MUSCULAR PAIN AND NOT RELATED TO PULMONARY OR PLEURAL DISEASE. SHE IS ADVISED TO HAVE SOMEONE GIVE HER A GOOD MESSAGE TO THE BACK. MAY TAKE TOTAL IN OUR Q 6 HOURS P.R.N.. Code(s): M54.9 - Dorsalgia, unspecified Category: Medical (2) Multiple sclerosis: Code(s): G35 - Multiple sclerosis Category: Medical (3) Lumbosacral spondylosis: Code(s): M47.817 - Spondylosis without myelopathy or radiculopathy, lumbosacral region Category: Medical (4) Impaired gait and mobility: Code(s): R26.89 - Other abnormalities of gait and mobility Category: Medical (5) Sacroiliac joint pain: Code(s): M53.3 - Sacrococcygeal disorders, not elsewhere classified Category: Medical Plan [facility] services for establishing home PT services and home exercise program. Discussed interventional treatments for chronic low back pain with facetogenic and SIJ pain components as well as thoracolumbar scoliosis and musculoskeletal and neuropathic pain related to MS. Given seizure disorder, patient is not candidate for Sprint PNS trial. We discussed therapeutic injections and RFA procedures. Request sent to [facility] for most recent cervical and lumbar spine MRI and imaging. Patient has tried multiple medication trials for chronic pain and fibromyalgia with minimal benefit. She is interested in medical and interventional pain management. Will obtain UDS today for potential entrance into our opioid program. All questions and concerns have been answered and patient agreed with the treatment plan. Follow-up for UDS review/procedure discussion and sooner as needed. Orders: Referrals [facility] Referral G35 - Multiple sclerosis, M47.817 - Spondylosis without myelopathy or radiculopathy, lumbosacral region, M54.9 - Dorsalgia, unspecified, R26.89 - Other abnormalities of gait and mobility Coding Level of Care Code New Pt Level 4 (97501) Complex EM visit Add On G2211 Diagnoses Back pain M54.9 Multiple sclerosis G35 Lumbosacral spondylosis M47.817 Impaired gait and mobility R26.89 Sacroiliac joint pain M53.3
[2024-07-24 11:30] VITALS: BP 122/80; PULSE 94; O2SAT 97; BMI 34.6
== END 2024-07-24 12:07 | disposition home or self-care (01) ==
LOC: HO.PMC 11:18
PROVIDERS: PCP Nurse Practitioner Primary Care; Visit Provider Nurse Practitioner Family
DX: M54.9 Dorsalgia, unspecified (principal); G35 Multiple sclerosis; M47.817 Spondylosis without myelopathy or radiculopathy, lumbosacral region; R26.89 Other abnormalities of gait and mobility; M53.3 Sacrococcygeal disorders, not elsewhere classified
CPT/HCPCS: 99204; G2211

== ENCOUNTER → 2024-07-24 11:17 | Outpatient (BNVA) | payer OTHER, SELFPAY | PROVIDERS: PCP Nurse Practitioner Primary Care; Visit Provider Nurse Practitioner Family | DX: M79.7 Fibromyalgia (principal); M47.817 Spondylosis without myelopathy or radiculopathy, lumbosacral region; R26.89 Other abnormalities of gait and mobility; M53.3 Sacrococcygeal disorders, not elsewhere classified; G35 Multiple sclerosis; R25.2 Cramp and spasm; E66.9 Obesity, unspecified; Z68.34 Body mass index [BMI] 34.0-34.9, adult | CPT/HCPCS: 99202 ==

== ENCOUNTER 2024-08-07 11:23 | Outpatient (AMB) | payer OTHER, SELFPAY ==
--- NOTE | 2024-08-07 11:30 | MHC.OFFVIS ---
Intake Visit Reasons: UDS Review Intake Note: Pain today 02/24 Temperature Logging Operator Required: Yes Temperature Logging Operator Language: Transit Operations Supervisor Services: Temperature Logging Operator Offered & Declined (Keegan) Temperature Logging Operator Name: Almita SHEA Accompanied by: public welfare worker Allergies Penicillins [PENICILLINS] Allergy (Severe, Verified 08/07/24 11:37) HIVES gabapentin Allergy (Unknown, Verified 08/07/24 11:37) Swelling sardine Allergy (Unknown, Uncoded 01/26/23 11:31) rash HPI Comments Details: Patient returns to the office today to discuss her UDS results and start medical management as well as discuss interventional treatments for chronic low back pain. Patient is accompanied by her NURSING HOME ASSISTANT ADMINISTRATOR who works with patient from 10:00 till 17:00 daily and assists with translation today per patient's request. Patient denies any changes to medications, medical history or recent hospitalizations. PHQ-9 SCORE: 3 OPIOID RISK STRATIFICATION SURVEY SCORE: 10 Given this, patient is deemed to be a MILD RISK for chronic opioid addiction. Educated patient on nursing home effects of opioid use including sexual dysfunction, cardiac, renal and immunosuppressive effects. The patient understands that the medication she is requesting is an opioid, which carries risks of dependence, tolerance, hyperalgesia, addiction, respiratory failure and possibly . Patient verbalized understanding of this and accepted these risks on her own volition. The patient accepts the responsibility to adhere to the opioid medication use agreement. There is no evidence of misuse, abuse or diversion at this time. Patient is aware she will be required to attend monthly pill counts and if there are any discrepancies, because of her risk of addiction she will be suspended for 6 MONTHS. PRIOR: Patient is a pleasant 48 years old Azeri speaking female with history of multiple sclerosis, spasticity, seizure disorder, low back pain, mild thoracolumbar levoscoliosis, L4-L5 anterior spondylolisthesis and facet athropathy, h/o lumbar synovial cyst removal, fibromyalgia, poor sleep, obesity, Bipolar disorder, presents today for initial evaluation of axial low back pain and widespread body pain. Patient reports increasing falls for the past month due to gait imbalances and right sided weakness with MS. She completed formal physical therapy about 2 years ago and is interested in home PT. She is followed by Neurology at [facility] for MS and has repeat brain and cervical spine MRI in December 2024. MS is treated with ofatumumab, prednisone 20 mg day before and 10 mg day of Kesimpta injection. Reports recent loss of her mom in April 2024 which has been physically and emotionally stressful for her. Patient reports daily chronic pain negatively affects her ADLs, functioning, mobility, sleep, mood, social interactions and quality of life. Patient completed multiple medication trials, including gabapentin which caused her bilateral leg swelling. Currently she is on amitrityline, baclofen, duloxetine, Ibuprofen, naproxen, and mirtazapine with continued chronic pain. Denies any fever or chills, abdominal or groin pain, dizziness, shortness of breaths, bladder or bowel dysfunction or saddle anesthesia. Location: Low back pain, widespread body pain Duration: Chronic pain since 2016 Characteristics of symptom or complaint: Aching, shooting, burning, throbbing, sharp, spasming, tingling Aggravating or associated factors: Any movement, walking, standing, prolonged sitting, cold weather, stress Relieving factors: Nothing multiple oral medication trials Treatment: PT, MS follow up at [facility] Neurology, NURSING HOME ASSISTANT ADMINISTRATOR services, [facility] Medical History Multiple sclerosis Smoker Dyspnea on exertion Back pain Weight loss, unintentional Post-COVID syndrome Surgical History H/O shoulder surgery Tubal ligation status Hx of section Family History Paternal Aunt Breast CA Social History Household Members: None Housing: Apartment Alcohol intake: never Patient Tobacco Use Status: Current everyday Tobacco user Cigarette Packs Per Day: 0.5 Cigarettes Per Day: 10 Years Smoked: 28 years Substance Use Type: Marijuana Current occupational status: disabled Sexual orientation: Straight/Heterosexual Gender identity: Female Female Reproductive History Menstrual Age of Menarche: 10 Review of Systems Const All systems reviewed & are unremarkable except as noted in HPI and below Physical Exam General: Appears afebrile. Alert and oriented. Mood and affect appropriate. Follows and participates in conversation appropriately. Respiratory effort is unlabored. No cough. Able to transition from sit to stand unassisted. Ambulates with assistance of NURSING HOME ASSISTANT ADMINISTRATOR. Uses cane with ambulation. Eyes General: appearance normal, both eyes and all related structures Resp Effort & Inspection: normal respiratory effort, no cough, respiratory distress and symmetric chest movement General: Yes no CVA tenderness Back/Spine/Pelvis Other: Limited lumbar ROM due to pain, antalgic gait with limping. No midline tenderness to palpation in the thoracic or lumbar spine. 2+ pedal pulses bilaterally. Zechariah sign, Bradly?s, Pelvic compression and Stinchfield tests are positive bilaterally. No groin pain with I/E hip rotations. Multiple widespread TTPs 16/16 bilaterally, including upper and lower extremities. Back: no CVA tenderness Cervical Spine: loss of normal cervical lordosis, cervical muscular tenderness, pain with cervical ROM, cervical spasm and No Cervical spine tenderness Thoracic/Lumbar Spine: thoracic and lumbar spine normal to inspection, Thoracic/lumbar spine scar(s), Lasegue's sign negative, straight leg raise negative bilaterally, pain with thoraco-lumbar ROM, paraspinal muscle tenderness, thoraco-lumbar ROM limited, Thoracic/lumbar scoliosis, No thoracic spinal tenderness and lumbar spinal tenderness (L4-S1) Pelvis: buttock tenderness bilaterally Sacroiliac joints: bilaterally tender to palpation Extrem General: Yes capillary refill normal, Yes no clubbing, cyanosis or edema and Yes no calf tenderness Results Reviewed Results Reviewed: XR CERVICAL SPINE 11/19/2019 CLINICAL INFORMATION: Neck pain status post injury. FINDINGS: There is straightening of the normal cervical lordosis with normal spinal alignment. The vertebral bodies are intact. The intervertebral disc spaces are unremarkable. The odontoid process is intact. There is no acute fracture. The prevertebral soft tissues are unremarkable. IMPRESSION: 1. Straightening of the normal cervical lordosis may be secondary to positioning and/or muscle spasm. No acute fracture or significant degenerative changes. MR LUMBAR SPINE WITHOUT AND WITH CONTRAST 03/03/2018 CLINICAL INFORMATION: Back pain. COMPARISON: MRI lumbar spine 04/13/2016. MRI lumbar spine 07/23/2013. TECHNIQUE: MRI of the lumbar spine was obtained using routine sequences with and without contrast. Intravenous contrast: Gadavist 8.5 mL FINDINGS: VERTEBRAL BODIES AND PARASPINAL STRUCTURES: 5 lumbar type vertebral bodies are identified and are normal in height, and alignment. Mild endplate discogenic marrow signal changes are present adjacent to the L5-S1 intervertebral disc. Mild paraspinous soft tissue inflammatory changes are present adjacent to the left and right L4-L5 facet joints which demonstrate moderate facet hypertrophic changes. CONUS MEDULLARIS AND CAUDA EQUINA: Normal, terminating at the level of L1-L2.. SPINAL LEVELS: T12-L1: Normal. Normal intervertebral disc. No central or foraminal stenoses. L1-L2: Normal L2-L3: Normal L3-L4: Minimal bilateral ligamentum flavum hypertrophy. L4-L5: An 11 mm diameter rounded predominantly low T1 and low T2-weighted focus is contiguous with the anterior aspect of the left L4-L5 facet joint resulting in near complete effacement of the adjacent left subarticular recess and medial displacement of the right L5 nerve roots. The L4-L5 intervertebral disc demonstrates minimal bilateral intraforaminal disc protrusions. The annulus of the disc appears intact and the intervertebral disc demonstrates normal height and normal signal intensity of the nucleus pulposus. The predominantly low signal focus described above demonstrates several areas of focal T2 hyperintensity and appears to exhibit a peripheral low signal intensity rim (axial T2 FSE series 5 image 18/27). Moderate bilateral facet hypertrophic degenerative changes are present and trace fluid is present in the left and right facet joints at L4-L5. This lesion demonstrates mild peripheral enhancement and soft tissue enhancement is noted adjacent to the left and right facet joints. L5-S1: Mild posterior broad-based disc bulge with punctate T2 hyperintensity noted in the right parasagittal of the disc bulge which may represent an annular fissure. No associated direct nerve root impingement. IMPRESSION: 1. Single 11 mm diameter lesion at the level of L4-L5 as described above resulting in direct left L5 nerve root impingement within the left L4-L5 subarticular recess. This finding is suspicious for a complex synovial cyst emanating from the anterior aspect of the left L4-L5 facet joint. The differential diagnosis includes a disc extrusion. However, the adjacent L4-L5 intervertebral disc demonstrates no disruption of the annulus or gross evidence of an associated extrusion. Furthermore, the signal intensity of this 11 mm diameter region has features suggesting a low signal peripheral rim and areas of central fluid signal intensity which favors the diagnosis of a synovial cyst. The low signal intensity within this lesion may represent areas of gas/calcification or ligamentum flavum hypertrophy associated with the synovial cyst. This lesion does not have the typical appearance of an epidural abscess given the absence of extensive adjacent epidural inflammatory changes and the predominantly low (T2-weighted) signal signal intensity of the lesion. This result was discussed with TETO CRAWFORD MD by telephone at 03/03/2018 11:17 AM and it was ascertained that the content and urgency of the report was understood at the time of direct communication. XR LUMBOSACRAL SPINE 01/04/2018 CLINICAL INFORMATION: Lower back pain COMPARISON: August 05, 2015 FINDINGS: There are 5 nonrib bearing lumbar vertebra. The bony texture and alignment satisfactory. Disc spaces are maintained. No acute fracture, spondylolisthesis, or spondylolysis identified. There is increased sclerosis seen involving the left sacroiliac joint unchanged from prior study. IMPRESSION: No significant bony abnormality of the lumbar spine identified. Stable increased sclerosis left sacroiliac joint may be related to osteitis. MR CERVICAL SPINE WITHOUT AND WITH CONTRAST MR THORACIC SPINE WITHOUT AND WITH CONTRAST 05/31/2017 CLINICAL INFORMATION: 41-year-old woman with multiple sclerosis. COMPARISON: 03/08/2017 brain MRI TECHNIQUE: MRI of the cervical and thoracic spine was obtained using routine sequences without and with contrast. Intravenous contrast: Gadavist 9 mL. FINDINGS: CERVICAL SPINE: Alignment of the cervical spine remains anatomic. Vertebral bodies are normal in height and bone marrow is normal in signal intensity on all sequences. There is mild loss of normal disc height at C4-C5. A T2 hyperintense lesion is seen in the right lateral cord at the cervicomedullary junction. A smaller focus of T2 hyperintense signal is seen within the right medial cord at C2-C3. A 5 mm lesion is noted in the right dorsal lateral cord at C5-C6. There is T2 hyperintense signal in the central ventral cord at the C6 level and in the left lateral cord at the C7 level. None of these lesions demonstrate abnormal enhancement on postcontrast sequences. Aside from a minimal soft disc bulge at C4-C5, the disc contours are normal. No significant canal or foraminal stenosis is noted at any level. THORACIC SPINE: On the sagittal images, alignment of the thoracic spine remains anatomic. Vertebral bodies are normal in height and bone marrow is normal in signal intensity on all sequences. The intervertebral discs remain normally hydrated and maintain normal volumes. No focal disc derangement is seen at any level. Facet arthrosis contributes to mild narrowing of the left T6-T7 neural foramen. The central canal and neural foramina are otherwise widely patent throughout the thoracic spine. Central canal and neural foramina are widely patent throughout the thoracic spine. There is subtle increased T2 signal in the dorsal cord on both sides of midline at the T3-T4 level. There may be subtle attenuation of normal cord diameter at this level as well. No other definite discrete T2 hyperintense foci are seen in the thoracic spinal cord. No pathologic intramedullary, leptomeningeal, or epidural enhancement is noted on postcontrast sequences. IMPRESSION: Numerous nonenhancing T2 hyperintense lesions are seen in the cervical and thoracic spinal cord, consistent with the patient's history of multiple sclerosis Assessment & Plan Assessment & Plan (1) Back pain: Comment: PAIN IN THE LEFT THORACIC AREA IS MOST LIKELY MUSCULAR PAIN AND NOT RELATED TO PULMONARY OR PLEURAL DISEASE. SHE IS ADVISED TO HAVE SOMEONE GIVE HER A GOOD MESSAGE TO THE BACK. MAY TAKE TOTAL IN OUR Q 6 HOURS P.R.N.. Code(s): M54.9 - Dorsalgia, unspecified Category: Medical (2) Multiple sclerosis: Code(s): G35 - Multiple sclerosis Category: Medical (3) Lumbosacral spondylosis: Code(s): M47.817 - Spondylosis without myelopathy or radiculopathy, lumbosacral region Category: Medical (4) Impaired gait and mobility: Code(s): R26.89 - Other abnormalities of gait and mobility Category: Medical (5) Sacroiliac joint pain: Code(s): M53.3 - Sacrococcygeal disorders, not elsewhere classified Category: Medical (6) Opioid contract exists: Code(s): Z79.891 - continuous churn buttermaker (current) use of opiate analgesic Category: Medical Plan Patient returns to the office to discuss her UDS results and start medical management as well as discuss interventional treatments for chronic low back pain. On evaluation, it was determined that there was a need for palliative chronic opioid prescribing. Risks and benefits were discussed with the patient. The patient completed all pain management opioid program screening paperwork and contracts, which were reviewed in detail. Her UDS came back concordant, positive for cannabis which patient reported obtaining through a family friend. Patient denies illicit drug use or obtaining marijuana on the streets. Patient is aware that the presence of additional adulterants in future UDS could result in suspension from this program.?Patient is a low opioid risk. PHQ-9 SCORE: 3 OPIOID RISK STRATIFICATION SURVEY SCORE: 10 Reviewed interventional treatments for chronic low back pain with facetogenic and SIJ pain components as well as thoracolumbar scoliosis and musculoskeletal and neuropathic pain related to MS. Given seizure disorder, patient is not candidate for Sprint PNS trial. We reviewed therapeutic injections and RFA procedures. Pending medical records from [facility] for most recent cervical and lumbar spine MRI and imaging. Script provided for hydrocodone-acetaminophen 5-325 mg 1 tablet BID prn for moderate-severe pain only. Side effects and precautions discussed with patient in greater length. Narcan script provided, educated patient and NURSING HOME ASSISTANT ADMINISTRATOR on its use and administration. All questions and concerns have been answered and patient agreed with the treatment plan. Follow-up for UDS review/procedure discussion and sooner as needed. Medications: New hydrocodone-acetaminophen 5-325 mg Partial Fill upon patient request. 1 tab PO BID 15 days PRN 30 tabs 0RF pain (scale score 7-10) G35 - Multiple sclerosis, M47.817 - Spondylosis without myelopathy or radiculopathy, lumbosacral region, M53.3 - Sacrococcygeal disorders, not elsewhere classified, M54.9 - Dorsalgia, unspecified naloxone 4 mg/actuation (Narcan) spray 1 dose into ONE nostril; alternate nostrils w each dose until help arrives 4 mg intranasal Q2M PRN 2 ea 0RF opioid overdose Z79.891 - continuous churn buttermaker (current) use of opiate analgesic Coding Level of Care Code Est Pt Level 4 (72169) Complex EM visit Add On G2211 Diagnoses Back pain M54.9 Multiple sclerosis G35 Lumbosacral spondylosis M47.817 Impaired gait and mobility R26.89 Sacroiliac joint pain M53.3 Opioid contract exists Z79.891
== END 2024-08-07 12:22 | disposition home or self-care (01) ==
PROVIDERS: PCP Nurse Practitioner Primary Care; Visit Provider Nurse Practitioner Family
DX: M54.9 Dorsalgia, unspecified (principal); G35 Multiple sclerosis; M47.817 Spondylosis without myelopathy or radiculopathy, lumbosacral region; R26.89 Other abnormalities of gait and mobility; M53.3 Sacrococcygeal disorders, not elsewhere classified; Z79.891 Long term (current) use of opiate analgesic
CPT/HCPCS: 99214; G2211

== ENCOUNTER → 2024-08-07 11:23 | Outpatient (BNVA) | payer OTHER, SELFPAY | PROVIDERS: PCP Nurse Practitioner Primary Care; Visit Provider Nurse Practitioner Family | DX: M54.9 Dorsalgia, unspecified (principal); M47.817 Spondylosis without myelopathy or radiculopathy, lumbosacral region; G35 Multiple sclerosis; M53.3 Sacrococcygeal disorders, not elsewhere classified; R26.89 Other abnormalities of gait and mobility; Z79.891 Long term (current) use of opiate analgesic | CPT/HCPCS: 99212 ==

== ENCOUNTER 2024-08-20 16:05 | Outpatient (REF) | payer OTHER, SELFPAY ==
[2024-08-20 17:52] LABS: Estimated Average Glucose 131 mg/dL; Hemoglobin A1C 162.0162 umol/L; Hemoglobin A1c % 6.2 % (<6.0); Total Hemoglobin (HGBA1C) 3623.9002 umol/L
== END 2024-08-20 16:06 | disposition home or self-care (01) ==
LOC: HO.HHCL 16:05
PROVIDERS: Visit Provider Nurse Practitioner Primary Care
DX: R73.03 Prediabetes (principal)
CPT/HCPCS: 36415; 83036

== ENCOUNTER 2024-08-21 11:23 | Outpatient (AMB) | payer OTHER, SELFPAY ==
--- NOTE | 2024-08-21 11:26 | MHC.OFFVIS ---
Vital Signs 08/21/24 11:42 Height 5 ft 2 in Weight 189 lb BMI 34.6 BP 126/76 Blood Pressure Location Lt brachial Position Sitting Pulse 97 Pulse Source Pulse Oximeter Pulse Oximetry (%) 98 Oxygen Delivery Method Room Air Intake Visit Reasons: Pill Count Intake Note: Beverly comes in today for a pill count to hydrocodone-acetaminophen 5-325mg tablet, patient should have 0 tablets and presents with 4 tablets which she last took today 08/21/24 at 8am. Pain today 5/10 Supervisor Air Conditioning Installer Required: Yes Supervisor Air Conditioning Installer Language: Aoc Director Intelligence Officer Services: Supervisor Air Conditioning Installer Present Supervisor Air Conditioning Installer Name: APPLIANCE TESTER per patient's request Accompanied by: Other Relationship Allergies Penicillins [PENICILLINS] Allergy (Severe, Verified 08/21/24 11:47) HIVES gabapentin Allergy (Unknown, Verified 08/21/24 11:47) Swelling sardine Allergy (Unknown, Uncoded 01/26/23 11:31) rash HPI Comments Details: Patient presents today for a pill count. Patient is supposed to have #0 pills, in her possession has #4 pills. This demonstrates a responsible attitude in regards to the medication regimen. Patient reports mild to moderate analgesia on current medication regime without noted side effects. Pain is rated at 5/10. Denies any constipation, nausea, sedation, dizziness, or urinary retention. Patient states he has an increased ability to perform activities of daily living, interact socially and be more functional. PRIOR: Patient returns to the office today to discuss her UDS results and start medical management as well as discuss interventional treatments for chronic low back pain. Patient is accompanied by her APPLIANCE TESTER who works with patient from 10:00 till 17:00 daily and assists with translation today per patient's request. Patient denies any changes to medications, medical history or recent hospitalizations. PHQ-9 SCORE: 3 OPIOID RISK STRATIFICATION SURVEY SCORE: 10 Given this, patient is deemed to be a MILD RISK for chronic opioid addiction. Educated patient on mcc effects of opioid use including sexual dysfunction, cardiac, renal and immunosuppressive effects. The patient understands that the medication she is requesting is an opioid, which carries risks of dependence, tolerance, hyperalgesia, addiction, respiratory failure and possibly . Patient verbalized understanding of this and accepted these risks on her own volition. The patient accepts the responsibility to adhere to the opioid medication use agreement. There is no evidence of misuse, abuse or diversion at this time. Patient is aware she will be required to attend monthly pill counts and if there are any discrepancies, because of her risk of addiction she will be suspended for 6 MONTHS. PRIOR: Patient is a pleasant 48 years old [place]er speaking female with history of multiple sclerosis, spasticity, seizure disorder, low back pain, mild thoracolumbar levoscoliosis, L4-L5 anterior spondylolisthesis and facet athropathy, h/o lumbar synovial cyst removal, fibromyalgia, poor sleep, obesity, Bipolar disorder, presents today for initial evaluation of axial low back pain and widespread body pain. Patient reports increasing falls for the past month due to gait imbalances and right sided weakness with MS. She completed formal physical therapy about 2 years ago and is interested in home PT. She is followed by Neurology at [facility] for MS and has repeat brain and cervical spine MRI in December 2024. MS is treated with ofatumumab, prednisone 20 mg day before and 10 mg day of Kesimpta injection. Reports recent loss of her mom in April 2024 which has been physically and emotionally stressful for her. Patient reports daily chronic pain negatively affects her ADLs, functioning, mobility, sleep, mood, social interactions and quality of life. Patient completed multiple medication trials, including gabapentin which caused her bilateral leg swelling. Currently she is on amitrityline, baclofen, duloxetine, Ibuprofen, naproxen, and mirtazapine with continued chronic pain. Denies any fever or chills, abdominal or groin pain, dizziness, shortness of breaths, bladder or bowel dysfunction or saddle anesthesia. Location: Low back pain, widespread body pain Duration: Chronic pain since 2016 Characteristics of symptom or complaint: Aching, shooting, burning, throbbing, sharp, spasming, tingling Aggravating or associated factors: Any movement, walking, standing, prolonged sitting, cold weather, stress Relieving factors: Nothing multiple oral medication trials Treatment: PT, MS follow up at [facility] Neurology, APPLIANCE TESTER services, [facility] Medical History Multiple sclerosis Smoker Dyspnea on exertion Back pain Weight loss, unintentional Post-COVID syndrome Surgical History H/O shoulder surgery Tubal ligation status Hx of section Family History Paternal Aunt Breast CA Social History Household Members: None Housing: Apartment Alcohol intake: never Patient Tobacco Use Status: Current everyday Tobacco user Cigarette Packs Per Day: 0.5 Cigarettes Per Day: 10 Years Smoked: 28 years Substance Use Type: Marijuana Current occupational status: disabled Sexual orientation: Straight/Heterosexual Gender identity: Female Female Reproductive History Menstrual Age of Menarche: 10 Review of Systems Const All systems reviewed & are unremarkable except as noted in HPI and below Physical Exam General: Appears afebrile. No acute distress. Alert and oriented. Mood and affect appropriate. Follows and participates in conversation appropriately. Respiratory effort is unlabored. No cough. Able to transition from sit to stand unassisted. Ambulates with assistance of APPLIANCE TESTER. Uses cane with ambulation. Resp Effort & Inspection: normal respiratory effort, able to speak in complete sentences, no cough and no respiratory distress General: Yes no CVA tenderness Back/Spine/Pelvis Other: Limited lumbar ROM due to pain, antalgic gait with limping. No midline tenderness to palpation in the thoracic or lumbar spine. 2+ pedal pulses bilaterally. Zechariah sign, Bradly?s, Pelvic compression and Stinchfield tests are positive bilaterally. No groin pain with I/E hip rotations. Multiple widespread TTPs 16/16 bilaterally, including upper and lower extremities. Back: no CVA tenderness Cervical Spine: loss of normal cervical lordosis, pain with cervical ROM and No Cervical spine tenderness Thoracic/Lumbar Spine: thoracic and lumbar spine normal to inspection, Thoracic/lumbar spine scar(s), Lasegue's sign negative, straight leg raise negative bilaterally, pain with thoraco-lumbar ROM, paraspinal muscle tenderness, thoraco-lumbar ROM limited, Thoracic/lumbar scoliosis, No thoracic spinal tenderness and lumbar spinal tenderness (L4-S1) Pelvis: buttock tenderness bilaterally Sacroiliac joints: bilaterally tender to palpation Extrem General: Yes capillary refill normal, Yes no clubbing, cyanosis or edema and Yes no calf tenderness Psych Appearance: grossly normal and well kempt Mental Status: mental status grossly normal Speech and movement: Normal speech and movement present Affect: normal affect and Sad affect present Attitude: cooperative Thought process: Normal thought process present Thought content: Normal thought content present, suicidality (none), no hallucinations and Depressive thoughts present Insight: Good insight present (Psych) Judgement: Good judgement present (Psych) Results Reviewed Results Reviewed: XR CERVICAL SPINE 11/19/2019 CLINICAL INFORMATION: Neck pain status post injury. FINDINGS: There is straightening of the normal cervical lordosis with normal spinal alignment. The vertebral bodies are intact. The intervertebral disc spaces are unremarkable. The odontoid process is intact. There is no acute fracture. The prevertebral soft tissues are unremarkable. IMPRESSION: 1. Straightening of the normal cervical lordosis may be secondary to positioning and/or muscle spasm. No acute fracture or significant degenerative changes. MR LUMBAR SPINE WITHOUT AND WITH CONTRAST 03/03/2018 CLINICAL INFORMATION: Back pain. COMPARISON: MRI lumbar spine 04/13/2016. MRI lumbar spine 07/23/2013. TECHNIQUE: MRI of the lumbar spine was obtained using routine sequences with and without contrast. Intravenous contrast: Gadavist 8.5 mL FINDINGS: VERTEBRAL BODIES AND PARASPINAL STRUCTURES: 5 lumbar type vertebral bodies are identified and are normal in height, and alignment. Mild endplate discogenic marrow signal changes are present adjacent to the L5-S1 intervertebral disc. Mild paraspinous soft tissue inflammatory changes are present adjacent to the left and right L4-L5 facet joints which demonstrate moderate facet hypertrophic changes. CONUS MEDULLARIS AND CAUDA EQUINA: Normal, terminating at the level of L1-L2.. SPINAL LEVELS: T12-L1: Normal. Normal intervertebral disc. No central or foraminal stenoses. L1-L2: Normal L2-L3: Normal L3-L4: Minimal bilateral ligamentum flavum hypertrophy. L4-L5: An 11 mm diameter rounded predominantly low T1 and low T2-weighted focus is contiguous with the anterior aspect of the left L4-L5 facet joint resulting in near complete effacement of the adjacent left subarticular recess and medial displacement of the right L5 nerve roots. The L4-L5 intervertebral disc demonstrates minimal bilateral intraforaminal disc protrusions. The annulus of the disc appears intact and the intervertebral disc demonstrates normal height and normal signal intensity of the nucleus pulposus. The predominantly low signal focus described above demonstrates several areas of focal T2 hyperintensity and appears to exhibit a peripheral low signal intensity rim (axial T2 FSE series 5 image /). Moderate bilateral facet hypertrophic degenerative changes are present and trace fluid is present in the left and right facet joints at L4-L5. This lesion demonstrates mild peripheral enhancement and soft tissue enhancement is noted adjacent to the left and right facet joints. L5-S1: Mild posterior broad-based disc bulge with punctate T2 hyperintensity noted in the right parasagittal of the disc bulge which may represent an annular fissure. No associated direct nerve root impingement. IMPRESSION: 1. Single 11 mm diameter lesion at the level of L4-L5 as described above resulting in direct left L5 nerve root impingement within the left L4-L5 subarticular recess. This finding is suspicious for a complex synovial cyst emanating from the anterior aspect of the left L4-L5 facet joint. The differential diagnosis includes a disc extrusion. However, the adjacent L4-L5 intervertebral disc demonstrates no disruption of the annulus or gross evidence of an associated extrusion. Furthermore, the signal intensity of this 11 mm diameter region has features suggesting a low signal peripheral rim and areas of central fluid signal intensity which favors the diagnosis of a synovial cyst. The low signal intensity within this lesion may represent areas of gas/calcification or ligamentum flavum hypertrophy associated with the synovial cyst. This lesion does not have the typical appearance of an epidural abscess given the absence of extensive adjacent epidural inflammatory changes and the predominantly low (T2-weighted) signal signal intensity of the lesion. This result was discussed with TETO CRAWFORD MD by telephone at 03/03/2018 11:17 AM and it was ascertained that the content and urgency of the report was understood at the time of direct communication. XR LUMBOSACRAL SPINE 01/04/2018 CLINICAL INFORMATION: Lower back pain COMPARISON: August 05, 2015 FINDINGS: There are 5 nonrib bearing lumbar vertebra. The bony texture and alignment satisfactory. Disc spaces are maintained. No acute fracture, spondylolisthesis, or spondylolysis identified. There is increased sclerosis seen involving the left sacroiliac joint unchanged from prior study. IMPRESSION: No significant bony abnormality of the lumbar spine identified. Stable increased sclerosis left sacroiliac joint may be related to osteitis. MR CERVICAL SPINE WITHOUT AND WITH CONTRAST MR THORACIC SPINE WITHOUT AND WITH CONTRAST 05/31/2017 CLINICAL INFORMATION: 41-year-old woman with multiple sclerosis. COMPARISON: 03/08/2017 brain MRI TECHNIQUE: MRI of the cervical and thoracic spine was obtained using routine sequences without and with contrast. Intravenous contrast: Gadavist 9 mL. FINDINGS: CERVICAL SPINE: Alignment of the cervical spine remains anatomic. Vertebral bodies are normal in height and bone marrow is normal in signal intensity on all sequences. There is mild loss of normal disc height at C4-C5. A T2 hyperintense lesion is seen in the right lateral cord at the cervicomedullary junction. A smaller focus of T2 hyperintense signal is seen within the right medial cord at C2-C3. A 5 mm lesion is noted in the right dorsal lateral cord at C5-C6. There is T2 hyperintense signal in the central ventral cord at the C6 level and in the left lateral cord at the C7 level. None of these lesions demonstrate abnormal enhancement on postcontrast sequences. Aside from a minimal soft disc bulge at C4-C5, the disc contours are normal. No significant canal or foraminal stenosis is noted at any level. THORACIC SPINE: On the sagittal images, alignment of the thoracic spine remains anatomic. Vertebral bodies are normal in height and bone marrow is normal in signal intensity on all sequences. The intervertebral discs remain normally hydrated and maintain normal volumes. No focal disc derangement is seen at any level. Facet arthrosis contributes to mild narrowing of the left T6-T7 neural foramen. The central canal and neural foramina are otherwise widely patent throughout the thoracic spine. Central canal and neural foramina are widely patent throughout the thoracic spine. There is subtle increased T2 signal in the dorsal cord on both sides of midline at the T3-T4 level. There may be subtle attenuation of normal cord diameter at this level as well. No other definite discrete T2 hyperintense foci are seen in the thoracic spinal cord. No pathologic intramedullary, leptomeningeal, or epidural enhancement is noted on postcontrast sequences. IMPRESSION: Numerous nonenhancing T2 hyperintense lesions are seen in the cervical and thoracic spinal cord, consistent with the patient's history of multiple sclerosis Assessment & Plan Assessment & Plan (1) Back pain: Comment: PAIN IN THE LEFT THORACIC AREA IS MOST LIKELY MUSCULAR PAIN AND NOT RELATED TO PULMONARY OR PLEURAL DISEASE. SHE IS ADVISED TO HAVE SOMEONE GIVE HER A GOOD MESSAGE TO THE BACK. MAY TAKE TOTAL IN OUR Q 6 HOURS P.R.N.. Code(s): M54.9 - Dorsalgia, unspecified Category: Medical (2) Multiple sclerosis: Code(s): G35 - Multiple sclerosis Category: Medical (3) Lumbosacral spondylosis: Code(s): M47.817 - Spondylosis without myelopathy or radiculopathy, lumbosacral region Category: Medical (4) Impaired gait and mobility: Code(s): R26.89 - Other abnormalities of gait and mobility Category: Medical (5) Sacroiliac joint pain: Code(s): M53.3 - Sacrococcygeal disorders, not elsewhere classified Category: Medical (6) Opioid contract exists: Code(s): Z79.891 - terminal gauger (current) use of opiate analgesic Category: Medical Plan Patient has shown accountability for her medication regimen and the pill count was accurate. There is no evidence of misuse, abuse or diversion at this time. MassPat reviewed. Will refill hydrocodone-acetaminophen 5-325 mg for 30 days with a refill sent today. Patient is aware of monitoring for side effects. Patient advised to take hydrocodone-acetaminophen 5-325 mg only on as needed basis. Patient has Narcan at home. Previously reviewed interventional treatments for chronic low back pain with facetogenic and SIJ pain components as well as thoracolumbar scoliosis and musculoskeletal and neuropathic pain related to MS. Given seizure disorder, patient is not candidate for Sprint PNS trial. We reviewed therapeutic injections and RFA procedures. Pending medical records from [facility] for most recent cervical and lumbar spine MRI and imaging. All questions were answered and the patient is in agreement with the plan. Follow up in 4 weeks for pill count and sooner as needed. Medications: Changed From hydrocodone-acetaminophen 5-325 mg Partial Fill upon patient request. 1 tab PO BID 15 days PRN 30 tabs 0RF pain (scale score 7-10) G35 - Multiple sclerosis, M47.817 - Spondylosis without myelopathy or radiculopathy, lumbosacral region, M53.3 - Sacrococcygeal disorders, not elsewhere classified, M54.9 - Dorsalgia, unspecified To hydrocodone-acetaminophen 5-325 mg Partial Fill upon patient request. 1 tab PO BID 30 days PRN 60 tabs 0RF pain (scale score 7-10) G35 - Multiple sclerosis, M47.817 - Spondylosis without myelopathy or radiculopathy, lumbosacral region, M53.3 - Sacrococcygeal disorders, not elsewhere classified, M54.9 - Dorsalgia, unspecified Coding Level of Care Code Est Pt Level 4 (32337) Complex EM visit Add On G2211 Diagnoses Back pain M54.9 Multiple sclerosis G35 Lumbosacral spondylosis M47.817 Impaired gait and mobility R26.89 Sacroiliac joint pain M53.3 Opioid contract exists Z79.891
[2024-08-21 11:42] VITALS: BP 126/76; PULSE 97; O2SAT 98; BMI 34.6
== END 2024-08-21 11:44 | disposition home or self-care (01) ==
PROVIDERS: PCP Nurse Practitioner Primary Care; Visit Provider Nurse Practitioner Family
DX: M54.9 Dorsalgia, unspecified (principal); G35 Multiple sclerosis; M47.817 Spondylosis without myelopathy or radiculopathy, lumbosacral region; R26.89 Other abnormalities of gait and mobility; M53.3 Sacrococcygeal disorders, not elsewhere classified; Z79.891 Long term (current) use of opiate analgesic
CPT/HCPCS: 99214; G2211

== ENCOUNTER → 2024-08-21 11:23 | Outpatient (BNVA) | payer OTHER, SELFPAY | PROVIDERS: PCP Nurse Practitioner Primary Care; Visit Provider Nurse Practitioner Family | DX: M47.817 Spondylosis without myelopathy or radiculopathy, lumbosacral region (principal); M53.3 Sacrococcygeal disorders, not elsewhere classified; G35 Multiple sclerosis; R26.89 Other abnormalities of gait and mobility; Z51.81 Encounter for therapeutic drug level monitoring; Z79.891 Long term (current) use of opiate analgesic | CPT/HCPCS: 99212 ==

== ENCOUNTER 2024-09-18 11:24 | Outpatient (AMB) | payer OTHER, SELFPAY ==
--- NOTE | 2024-09-18 11:33 | MHC.OFFVIS ---
Vital Signs 09/18/24 11:45 Height 5 ft 2 in Weight 195 lb BMI 35.7 BP 116/73 Blood Pressure Location Rt brachial Position Sitting Pulse 83 Pulse Source Pulse Oximeter Pulse Oximetry (%) 98 Oxygen Delivery Method Room Air Intake Visit Reasons: Pill Count Intake Note: Beverly comes in today for a pill count to hydrocodone-acetaminophen, patient should have 4 tablets and presents with 11 tablets which she last took today 09/18/24 at 8:30am. Pain today 5/10. Patient resigned opioid contract in office today, signed copy was provided to patient. Patient will also have random UDS done. Patent Searcher Required: No Accompanied by: song plugger Allergies Penicillins [PENICILLINS] Allergy (Severe, Verified 09/18/24 11:55) HIVES gabapentin Allergy (Unknown, Verified 09/18/24 11:55) Swelling sardine Allergy (Unknown, Uncoded 01/26/23 11:31) rash HPI Comments Details: Patient presents today for a pill count. Patient is supposed to have #4 pills, in her possession has #11 pills. This demonstrates a responsible attitude in regards to the medication regimen. Patient reports mild to moderate analgesia on current medication regime without noted side effects. Pain is rated at 5/10. Denies any constipation, nausea, sedation, dizziness, or urinary retention. Patient states he has an increased ability to perform activities of daily living, interact socially and be more functional. [facility]. PRIOR: Patient returns to the office today to discuss her UDS results and start medical management as well as discuss interventional treatments for chronic low back pain. Patient is accompanied by her MANAGER OF WAREHOUSE who works with patient from 10:00 till 17:00 daily and assists with translation today per patient's request. Patient denies any changes to medications, medical history or recent hospitalizations. PHQ-9 SCORE: 3 OPIOID RISK STRATIFICATION SURVEY SCORE: 10 Given this, patient is deemed to be a MILD RISK for chronic opioid addiction. Educated patient on terminal gauger supervisor effects of opioid use including sexual dysfunction, cardiac, renal and immunosuppressive effects. The patient understands that the medication she is requesting is an opioid, which carries risks of dependence, tolerance, hyperalgesia, addiction, respiratory failure and possibly . Patient verbalized understanding of this and accepted these risks on her own volition. The patient accepts the responsibility to adhere to the opioid medication use agreement. There is no evidence of misuse, abuse or diversion at this time. Patient is aware she will be required to attend monthly pill counts and if there are any discrepancies, because of her risk of addiction she will be suspended for 6 MONTHS. PRIOR: Patient is a pleasant 48 years old Tajik speaking female with history of multiple sclerosis, spasticity, seizure disorder, low back pain, mild thoracolumbar levoscoliosis, L4-L5 anterior spondylolisthesis and facet athropathy, h/o lumbar synovial cyst removal, fibromyalgia, poor sleep, obesity, Bipolar disorder, presents today for initial evaluation of axial low back pain and widespread body pain. Patient reports increasing falls for the past month due to gait imbalances and right sided weakness with MS. She completed formal physical therapy about 2 years ago and is interested in home PT. She is followed by Neurology at [facility] for MS and has repeat brain and cervical spine MRI in December 2024. MS is treated with ofatumumab, prednisone 20 mg day before and 10 mg day of Kesimpta injection. Reports recent loss of her mom in April 2024 which has been physically and emotionally stressful for her. Patient reports daily chronic pain negatively affects her ADLs, functioning, mobility, sleep, mood, social interactions and quality of life. Patient completed multiple medication trials, including gabapentin which caused her bilateral leg swelling. Currently she is on amitrityline, baclofen, duloxetine, Ibuprofen, naproxen, and mirtazapine with continued chronic pain. Denies any fever or chills, abdominal or groin pain, dizziness, shortness of breaths, bladder or bowel dysfunction or saddle anesthesia. Location: Low back pain, widespread body pain Duration: Chronic pain since 2016 Characteristics of symptom or complaint: Aching, shooting, burning, throbbing, sharp, spasming, tingling Aggravating or associated factors: Any movement, walking, standing, prolonged sitting, cold weather, stress Relieving factors: Nothing multiple oral medication trials Treatment: PT, MS follow up at [facility] Neurology, [employer] services, [facility] Medical History Multiple sclerosis Smoker Dyspnea on exertion Back pain Weight loss, unintentional Post-COVID syndrome Surgical History H/O shoulder surgery Tubal ligation status Hx of section Family History Paternal Aunt Breast CA Social History Household Members: None Housing: Apartment Alcohol intake: never Patient Tobacco Use Status: Current everyday Tobacco user Cigarette Packs Per Day: 0.5 Cigarettes Per Day: 10 Years Smoked: 28 years Substance Use Type: Marijuana Current occupational status: disabled Sexual orientation: Straight/Heterosexual Gender identity: Female Female Reproductive History Menstrual Age of Menarche: 10 Review of Systems Const All systems reviewed & are unremarkable except as noted in HPI and below Physical Exam Vital Signs: Last Vital Signs Pulse 83 09/18/24 11:45 BP 116/73 09/18/24 11:45 Pulse Ox 98 09/18/24 11:45 Oxygen Delivery Method Room Air 09/18/24 11:45 BMI result Body Mass Index 35.7 General: Appears afebrile. Alert and oriented. Mood and affect appropriate. Follows and participates in conversation appropriately. Respiratory effort is unlabored. No cough. Able to transition from sit to stand unassisted. Ambulates with bilaterally normal heel strike and toe off. Psych Appearance: grossly normal Mental Status: mental status grossly normal Speech and movement: Normal speech and movement present Affect: normal affect Attitude: cooperative Thought process: Normal thought process present Thought content: Normal thought content present, suicidality (none), no hallucinations and No Depressive thoughts present Insight: Good insight present (Psych) Judgement: Good judgement present (Psych) Results Reviewed Results Reviewed: XR CERVICAL SPINE 11/19/2019 CLINICAL INFORMATION: Neck pain status post injury. FINDINGS: There is straightening of the normal cervical lordosis with normal spinal alignment. The vertebral bodies are intact. The intervertebral disc spaces are unremarkable. The odontoid process is intact. There is no acute fracture. The prevertebral soft tissues are unremarkable. IMPRESSION: 1. Straightening of the normal cervical lordosis may be secondary to positioning and/or muscle spasm. No acute fracture or significant degenerative changes. MR LUMBAR SPINE WITHOUT AND WITH CONTRAST 03/03/2018 CLINICAL INFORMATION: Back pain. COMPARISON: MRI lumbar spine 04/13/2016. MRI lumbar spine 07/23/2013. TECHNIQUE: MRI of the lumbar spine was obtained using routine sequences with and without contrast. Intravenous contrast: Gadavist 8.5 mL FINDINGS: VERTEBRAL BODIES AND PARASPINAL STRUCTURES: 5 lumbar type vertebral bodies are identified and are normal in height, and alignment. Mild endplate discogenic marrow signal changes are present adjacent to the L5-S1 intervertebral disc. Mild paraspinous soft tissue inflammatory changes are present adjacent to the left and right L4-L5 facet joints which demonstrate moderate facet hypertrophic changes. CONUS MEDULLARIS AND CAUDA EQUINA: Normal, terminating at the level of L1-L2.. SPINAL LEVELS: T12-L1: Normal. Normal intervertebral disc. No central or foraminal stenoses. L1-L2: Normal L2-L3: Normal L3-L4: Minimal bilateral ligamentum flavum hypertrophy. L4-L5: An 11 mm diameter rounded predominantly low T1 and low T2-weighted focus is contiguous with the anterior aspect of the left L4-L5 facet joint resulting in near complete effacement of the adjacent left subarticular recess and medial displacement of the right L5 nerve roots. The L4-L5 intervertebral disc demonstrates minimal bilateral intraforaminal disc protrusions. The annulus of the disc appears intact and the intervertebral disc demonstrates normal height and normal signal intensity of the nucleus pulposus. The predominantly low signal focus described above demonstrates several areas of focal T2 hyperintensity and appears to exhibit a peripheral low signal intensity rim (axial T2 FSE series 5 image 18/27). Moderate bilateral facet hypertrophic degenerative changes are present and trace fluid is present in the left and right facet joints at L4-L5. This lesion demonstrates mild peripheral enhancement and soft tissue enhancement is noted adjacent to the left and right facet joints. L5-S1: Mild posterior broad-based disc bulge with punctate T2 hyperintensity noted in the right parasagittal of the disc bulge which may represent an annular fissure. No associated direct nerve root impingement. IMPRESSION: 1. Single 11 mm diameter lesion at the level of L4-L5 as described above resulting in direct left L5 nerve root impingement within the left L4-L5 subarticular recess. This finding is suspicious for a complex synovial cyst emanating from the anterior aspect of the left L4-L5 facet joint. The differential diagnosis includes a disc extrusion. However, the adjacent L4-L5 intervertebral disc demonstrates no disruption of the annulus or gross evidence of an associated extrusion. Furthermore, the signal intensity of this 11 mm diameter region has features suggesting a low signal peripheral rim and areas of central fluid signal intensity which favors the diagnosis of a synovial cyst. The low signal intensity within this lesion may represent areas of gas/calcification or ligamentum flavum hypertrophy associated with the synovial cyst. This lesion does not have the typical appearance of an epidural abscess given the absence of extensive adjacent epidural inflammatory changes and the predominantly low (T2-weighted) signal signal intensity of the lesion. This result was discussed with TETO CRAWFORD MD by telephone at 03/03/2018 11:17 AM and it was ascertained that the content and urgency of the report was understood at the time of direct communication. XR LUMBOSACRAL SPINE 01/04/2018 CLINICAL INFORMATION: Lower back pain COMPARISON: August 05, 2015 FINDINGS: There are 5 nonrib bearing lumbar vertebra. The bony texture and alignment satisfactory. Disc spaces are maintained. No acute fracture, spondylolisthesis, or spondylolysis identified. There is increased sclerosis seen involving the left sacroiliac joint unchanged from prior study. IMPRESSION: No significant bony abnormality of the lumbar spine identified. Stable increased sclerosis left sacroiliac joint may be related to osteitis. MR CERVICAL SPINE WITHOUT AND WITH CONTRAST MR THORACIC SPINE WITHOUT AND WITH CONTRAST 05/31/2017 CLINICAL INFORMATION: 41-year-old woman with multiple sclerosis. COMPARISON: 03/08/2017 brain MRI TECHNIQUE: MRI of the cervical and thoracic spine was obtained using routine sequences without and with contrast. Intravenous contrast: Gadavist 9 mL. FINDINGS: CERVICAL SPINE: Alignment of the cervical spine remains anatomic. Vertebral bodies are normal in height and bone marrow is normal in signal intensity on all sequences. There is mild loss of normal disc height at C4-C5. A T2 hyperintense lesion is seen in the right lateral cord at the cervicomedullary junction. A smaller focus of T2 hyperintense signal is seen within the right medial cord at C2-C3. A 5 mm lesion is noted in the right dorsal lateral cord at C5-C6. There is T2 hyperintense signal in the central ventral cord at the C6 level and in the left lateral cord at the C7 level. None of these lesions demonstrate abnormal enhancement on postcontrast sequences. Aside from a minimal soft disc bulge at C4-C5, the disc contours are normal. No significant canal or foraminal stenosis is noted at any level. THORACIC SPINE: On the sagittal images, alignment of the thoracic spine remains anatomic. Vertebral bodies are normal in height and bone marrow is normal in signal intensity on all sequences. The intervertebral discs remain normally hydrated and maintain normal volumes. No focal disc derangement is seen at any level. Facet arthrosis contributes to mild narrowing of the left T6-T7 neural foramen. The central canal and neural foramina are otherwise widely patent throughout the thoracic spine. Central canal and neural foramina are widely patent throughout the thoracic spine. There is subtle increased T2 signal in the dorsal cord on both sides of midline at the T3-T4 level. There may be subtle attenuation of normal cord diameter at this level as well. No other definite discrete T2 hyperintense foci are seen in the thoracic spinal cord. No pathologic intramedullary, leptomeningeal, or epidural enhancement is noted on postcontrast sequences. IMPRESSION: Numerous nonenhancing T2 hyperintense lesions are seen in the cervical and thoracic spinal cord, consistent with the patient's history of multiple sclerosis Assessment & Plan Assessment & Plan (1) Back pain: Comment: PAIN IN THE LEFT THORACIC AREA IS MOST LIKELY MUSCULAR PAIN AND NOT RELATED TO PULMONARY OR PLEURAL DISEASE. SHE IS ADVISED TO HAVE SOMEONE GIVE HER A GOOD MESSAGE TO THE BACK. MAY TAKE TOTAL IN OUR Q 6 HOURS P.R.N.. Code(s): M54.9 - Dorsalgia, unspecified Category: Medical (2) Multiple sclerosis: Code(s): G35 - Multiple sclerosis Category: Medical (3) Lumbosacral spondylosis: Code(s): M47.817 - Spondylosis without myelopathy or radiculopathy, lumbosacral region Category: Medical (4) Sacroiliac joint pain: Code(s): M53.3 - Sacrococcygeal disorders, not elsewhere classified Category: Medical (5) Opioid contract exists: Code(s): Z79.891 - intermediate designer (current) use of opiate analgesic Category: Medical Plan Patient has shown accountability for her medication regimen and the pill count was accurate. There is no evidence of misuse, abuse or diversion at this time. [facility] reviewed. Script sent for hydrocodone-acetaminophen 5-325 mg for 30 days with advanced date of 09/22/24. Patient has Narcan at home. Patient has missed home PT via [facility] services and was provided with contact information to schedule home PT. Patient's MANAGER OF WAREHOUSE reports home PT is scheduled for tomorrow. All questions were answered and the patient is in agreement with the plan. Follow up in 4 weeks for pill count and sooner as needed. Medications: Refilled hydrocodone-acetaminophen 5-325 mg Partial Fill upon patient request. 1 tab PO BID 30 days PRN 60 tabs 0RF pain (scale score 7-10) G35 - Multiple sclerosis, M47.817 - Spondylosis without myelopathy or radiculopathy, lumbosacral region, M53.3 - Sacrococcygeal disorders, not elsewhere classified, M54.9 - Dorsalgia, unspecified Coding Level of Care Code Est Pt Level 4 (92066) Complex EM visit Add On G2211 Diagnoses Back pain M54.9 Multiple sclerosis G35 Lumbosacral spondylosis M47.817 Sacroiliac joint pain M53.3 Opioid contract exists Z79.891
[2024-09-18 11:45] VITALS: BP 116/73; PULSE 83; O2SAT 98; BMI 35.7
== END 2024-09-18 11:56 | disposition home or self-care (01) ==
PROVIDERS: PCP Nurse Practitioner Primary Care; Visit Provider Nurse Practitioner Family
DX: M54.9 Dorsalgia, unspecified (principal); G35 Multiple sclerosis; M47.817 Spondylosis without myelopathy or radiculopathy, lumbosacral region; M53.3 Sacrococcygeal disorders, not elsewhere classified; Z79.891 Long term (current) use of opiate analgesic
CPT/HCPCS: 99214; G2211

== ENCOUNTER → 2024-09-18 11:24 | Outpatient (BNVA) | payer OTHER, SELFPAY | PROVIDERS: PCP Nurse Practitioner Primary Care; Visit Provider Nurse Practitioner Family | DX: Z51.81 Encounter for therapeutic drug level monitoring (principal); M54.9 Dorsalgia, unspecified; M53.3 Sacrococcygeal disorders, not elsewhere classified; M47.817 Spondylosis without myelopathy or radiculopathy, lumbosacral region; G35 Multiple sclerosis; Z79.891 Long term (current) use of opiate analgesic | CPT/HCPCS: 99212 ==

== ENCOUNTER 2024-10-16 11:02 | Outpatient (AMB) | payer OTHER, SELFPAY ==
[2024-10-16 11:04] VITALS: BP 136/80; PULSE 92; RESP 18; O2SAT 98; BMI 34.7
--- NOTE | 2024-10-16 11:04 | A.OFFVIS_ITS ---
Vital Signs 3 10/16/24 11:04 Height 5 ft 2 in Weight 190 lb BMI 34.7 BP 136/80 Blood Pressure Location Lt brachial Position Sitting Respiration 18 Pulse 92 Pulse Source Pulse Oximeter Pulse Oximetry (%) 98 Oxygen Delivery Method Room Air Intake Visit Reasons: Pill Count Medical Librarian Required: No Accompanied by: CLICKER OPERATOR staff Allergies Penicillins [PENICILLINS] Allergy (Severe, Verified 10/16/24 11:08) HIVES gabapentin Allergy (Unknown, Verified 10/16/24 11:08) Swelling sardine Allergy (Unknown, Uncoded 10/16/24 11:08) rash Medication List - Last Reconciled 10/16/24 by Fern Preciado, GOPI albuterol sulfate 90 mcg/actuation 1 inh inhalation QID albuterol sulfate 2.5 mg inhalation Q4-6H PRN amitriptyline mg PO amlodipine 10 mg PO DAILY aspirin 81 mg PO DAILY atorvastatin 20 mg PO BEDTIME baclofen mg PO bisacodyl (Dulcolax (bisacodyl)) 10 mg (2 x 5 mg) PO ONCE 1 day bisacodyl (Dulcolax (bisacodyl)) 20 mg (4 x 5 mg) PO ONCE 1 day calcium polycarbophil (Fiber Laxative (calcium polycarbophil)) 1,250 mg PO DAILY cetirizine 10 mg PO DAILY cholecalciferol (vitamin D3) 50 mcg PO DAILY cyanocobalamin (vitamin B-12) 1,000 mcg PO DAILY duloxetine 20 mg PO BID entecavir 1 mg PO DAILY hydrocodone-acetaminophen 5-325 mg 1 tab PO BID PRN 30 days ibuprofen 600 mg PO Q8H PRN levetiracetam 1,250 mg PO DAILY metformin 500 mg PO BID mirtazapine 30 mg PO BEDTIME naloxone 4 mg/actuation (Narcan) 4 mg intranasal Q2M PRN naproxen 500 mg PO BID ofatumumab (Kesimpta Pen) 20 mg subcut .monthly polyethylene glycol 3350 (Miralax) 238 grams PO ONCE 1 day sennosides (Natural Senna Laxative) 17.2 mg (2 x 8.6 mg) PO BEDTIME topiramate 50 mg PO TID HPI Comments Details: Patient presents today for a pill count. Patient is supposed to have #12 pills, in her possession has #17 pills. This demonstrates a responsible attitude in regards to the medication regimen. Patient reports adequate analgesia on current medication regime without noted side effects. Pain is rated at 8/10. Denies any constipation, nausea, sedation, dizziness, or urinary retention. Patient states he has an increased ability to perform activities of daily living, interact socially and be more functional. She completed home PT via [facility] services with minimal improvement. She has upcoming follow up with Neurology for MS. PHQ-9 SCORE: 3 OPIOID RISK STRATIFICATION SURVEY SCORE: 10 PRIOR: Patient is a pleasant 48 years old Belarusian speaking female with history of multiple sclerosis, spasticity, seizure disorder, low back pain, mild thoracolumbar levoscoliosis, L4-L5 anterior spondylolisthesis and facet athropathy, h/o lumbar synovial cyst removal, fibromyalgia, poor sleep, obesity, Bipolar disorder, presents today for initial evaluation of axial low back pain and widespread body pain. Patient reports increasing falls for the past month due to gait imbalances and right sided weakness with MS. She completed formal physical therapy about 2 years ago and is interested in home PT. She is followed by Neurology at [facility] for MS and has repeat brain and cervical spine MRI in December 2024. MS is treated with ofatumumab, prednisone 20 mg day before and 10 mg day of Kesimpta injection. Reports recent loss of her mom in April 2024 which has been physically and emotionally stressful for her. Patient reports daily chronic pain negatively affects her ADLs, functioning, mobility, sleep, mood, social interactions and quality of life. Patient completed multiple medication trials, including gabapentin which caused her bilateral leg swelling. Currently she is on amitrityline, baclofen, duloxetine, Ibuprofen, naproxen, and mirtazapine with continued chronic pain. Denies any fever or chills, abdominal or groin pain, dizziness, shortness of breaths, bladder or bowel dysfunction or saddle anesthesia. Location: Low back pain, widespread body pain Duration: Chronic pain since 2017 Characteristics of symptom or complaint: Aching, shooting, burning, throbbing, sharp, spasming, tingling Aggravating or associated factors: Any movement, walking, standing, prolonged sitting, cold weather, stress Relieving factors: Nothing multiple oral medication trials Treatment: PT, MS follow up at [facility] Neurology, [facility] services, [facility] Medical History Seizures Multiple sclerosis Smoker Dyspnea on exertion Back pain Weight loss, unintentional Post-COVID syndrome Surgical History H/O shoulder surgery Tubal ligation status Hx of section Family History Paternal Aunt Breast CA Social History Household Members: None Housing: Apartment Alcohol intake: never Patient Tobacco Use Status: Current everyday Tobacco user Cigarette Packs Per Day: 0.5 Cigarettes Per Day: 10 Years Smoked: 28 years Substance Use Type: Marijuana Current occupational status: disabled Sexual orientation: Straight/Heterosexual Gender identity: Female Female Reproductive History Menstrual Age of Menarche: 10 Review of Systems Const All systems reviewed & are unremarkable except as noted in HPI and below Physical Exam Vital Signs: Last Vital Signs Pulse 92 10/16/24 11:04 BP 136/80 10/16/24 11:04 Pulse Ox 98 10/16/24 11:04 Oxygen Delivery Method Room Air 10/16/24 11:04 General: Appears afebrile. Alert and oriented. Mood and affect appropriate. Follows and participates in conversation appropriately. Respiratory effort is unlabored. No cough. Able to transition from sit to stand unassisted. Ambulates with bilaterally normal heel strike and toe off. Extrem General: Yes capillary refill normal, Yes no clubbing, cyanosis or edema and Yes no calf tenderness Psych Appearance: grossly normal Mental Status: mental status grossly normal Speech and movement: Normal speech and movement present Affect: normal affect Attitude: cooperative Thought process: Normal thought process present Thought content: Normal thought content present, suicidality (none), no hallucinations and No Depressive thoughts present Insight: Good insight present (Psych) Judgement: Good judgement present (Psych) Results Reviewed Results Reviewed: XR CERVICAL SPINE 11/19/2019 CLINICAL INFORMATION: Neck pain status post injury. FINDINGS: There is straightening of the normal cervical lordosis with normal spinal alignment. The vertebral bodies are intact. The intervertebral disc spaces are unremarkable. The odontoid process is intact. There is no acute fracture. The prevertebral soft tissues are unremarkable. IMPRESSION: 1. Straightening of the normal cervical lordosis may be secondary to positioning and/or muscle spasm. No acute fracture or significant degenerative changes. MR LUMBAR SPINE WITHOUT AND WITH CONTRAST 03/03/2018 CLINICAL INFORMATION: Back pain. COMPARISON: MRI lumbar spine 04/13/2016. MRI lumbar spine 07/23/2013. TECHNIQUE: MRI of the lumbar spine was obtained using routine sequences with and without contrast. Intravenous contrast: Gadavist 8.5 mL FINDINGS: VERTEBRAL BODIES AND PARASPINAL STRUCTURES: 5 lumbar type vertebral bodies are identified and are normal in height, and alignment. Mild endplate discogenic marrow signal changes are present adjacent to the L5-S1 intervertebral disc. Mild paraspinous soft tissue inflammatory changes are present adjacent to the left and right L4-L5 facet joints which demonstrate moderate facet hypertrophic changes. CONUS MEDULLARIS AND CAUDA EQUINA: Normal, terminating at the level of L1-L2.. SPINAL LEVELS: T12-L1: Normal. Normal intervertebral disc. No central or foraminal stenoses. L1-L2: Normal L2-L3: Normal L3-L4: Minimal bilateral ligamentum flavum hypertrophy. L4-L5: An 11 mm diameter rounded predominantly low T1 and low T2-weighted focus is contiguous with the anterior aspect of the left L4-L5 facet joint resulting in near complete effacement of the adjacent left subarticular recess and medial displacement of the right L5 nerve roots. The L4-L5 intervertebral disc demonstrates minimal bilateral intraforaminal disc protrusions. The annulus of the disc appears intact and the intervertebral disc demonstrates normal height and normal signal intensity of the nucleus pulposus. The predominantly low signal focus described above demonstrates several areas of focal T2 hyperintensity and appears to exhibit a peripheral low signal intensity rim (axial T2 FSE series 5 image 18/27). Moderate bilateral facet hypertrophic degenerative changes are present and trace fluid is present in the left and right facet joints at L4-L5. This lesion demonstrates mild peripheral enhancement and soft tissue enhancement is noted adjacent to the left and right facet joints. L5-S1: Mild posterior broad-based disc bulge with punctate T2 hyperintensity noted in the right parasagittal of the disc bulge which may represent an annular fissure. No associated direct nerve root impingement. IMPRESSION: 1. Single 11 mm diameter lesion at the level of L4-L5 as described above resulting in direct left L5 nerve root impingement within the left L4-L5 subarticular recess. This finding is suspicious for a complex synovial cyst emanating from the anterior aspect of the left L4-L5 facet joint. The differential diagnosis includes a disc extrusion. However, the adjacent L4-L5 intervertebral disc demonstrates no disruption of the annulus or gross evidence of an associated extrusion. Furthermore, the signal intensity of this 11 mm diameter region has features suggesting a low signal peripheral rim and areas of central fluid signal intensity which favors the diagnosis of a synovial cyst. The low signal intensity within this lesion may represent areas of gas/calcification or ligamentum flavum hypertrophy associated with the synovial cyst. This lesion does not have the typical appearance of an epidural abscess given the absence of extensive adjacent epidural inflammatory changes and the predominantly low (T2-weighted) signal signal intensity of the lesion. This result was discussed with TETO CRAWFORD MD by telephone at 03/03/2018 11:17 AM and it was ascertained that the content and urgency of the report was understood at the time of direct communication. XR LUMBOSACRAL SPINE 01/04/2018 CLINICAL INFORMATION: Lower back pain COMPARISON: August 05, 2015 FINDINGS: There are 5 nonrib bearing lumbar vertebra. The bony texture and alignment satisfactory. Disc spaces are maintained. No acute fracture, spondylolisthesis, or spondylolysis identified. There is increased sclerosis seen involving the left sacroiliac joint unchanged from prior study. IMPRESSION: No significant bony abnormality of the lumbar spine identified. Stable increased sclerosis left sacroiliac joint may be related to osteitis. MR CERVICAL SPINE WITHOUT AND WITH CONTRAST MR THORACIC SPINE WITHOUT AND WITH CONTRAST 05/31/2017 CLINICAL INFORMATION: 41-year-old woman with multiple sclerosis. COMPARISON: 03/08/2017 brain MRI TECHNIQUE: MRI of the cervical and thoracic spine was obtained using routine sequences without and with contrast. Intravenous contrast: Gadavist 9 mL. FINDINGS: CERVICAL SPINE: Alignment of the cervical spine remains anatomic. Vertebral bodies are normal in height and bone marrow is normal in signal intensity on all sequences. There is mild loss of normal disc height at C4-C5. A T2 hyperintense lesion is seen in the right lateral cord at the cervicomedullary junction. A smaller focus of T2 hyperintense signal is seen within the right medial cord at C2-C3. A 5 mm lesion is noted in the right dorsal lateral cord at C5-C6. There is T2 hyperintense signal in the central ventral cord at the C6 level and in the left lateral cord at the C7 level. None of these lesions demonstrate abnormal enhancement on postcontrast sequences. Aside from a minimal soft disc bulge at C4-C5, the disc contours are normal. No significant canal or foraminal stenosis is noted at any level. THORACIC SPINE: On the sagittal images, alignment of the thoracic spine remains anatomic. Vertebral bodies are normal in height and bone marrow is normal in signal intensity on all sequences. The intervertebral discs remain normally hydrated and maintain normal volumes. No focal disc derangement is seen at any level. Facet arthrosis contributes to mild narrowing of the left T6-T7 neural foramen. The central canal and neural foramina are otherwise widely patent throughout the thoracic spine. Central canal and neural foramina are widely patent throughout the thoracic spine. There is subtle increased T2 signal in the dorsal cord on both sides of midline at the T3-T4 level. There may be subtle attenuation of normal cord diameter at this level as well. No other definite discrete T2 hyperintense foci are seen in the thoracic spinal cord. No pathologic intramedullary, leptomeningeal, or epidural enhancement is noted on postcontrast sequences. IMPRESSION: Numerous nonenhancing T2 hyperintense lesions are seen in the cervical and thoracic spinal cord, consistent with the patient's history of multiple sclerosis Assessment & Plan Assessment & Plan (1) Back pain: Comment: PAIN IN THE LEFT THORACIC AREA IS MOST LIKELY MUSCULAR PAIN AND NOT RELATED TO PULMONARY OR PLEURAL DISEASE. SHE IS ADVISED TO HAVE SOMEONE GIVE HER A GOOD MESSAGE TO THE BACK. MAY TAKE TOTAL IN OUR Q 6 HOURS P.R.N.. Code(s): M54.9 - Dorsalgia, unspecified Category: Medical (2) Multiple sclerosis: Code(s): G35 - Multiple sclerosis Category: Medical (3) Lumbosacral spondylosis: Code(s): M47.817 - Spondylosis without myelopathy or radiculopathy, lumbosacral region Category: Medical (4) Sacroiliac joint pain: Code(s): M53.3 - Sacrococcygeal disorders, not elsewhere classified Category: Medical (5) Opioid contract exists: Code(s): Z79.891 - senior care (current) use of opiate analgesic Category: Medical Plan Patient has shown accountability for her medication regimen and the pill count was accurate. There is no evidence of misuse, abuse or diversion at this time. [place] reviewed. Script sent for hydrocodone-acetaminophen 5-325 mg for 30 days with advanced date of 10/23/24. Patient has Narcan at home. Patient completed home PT via VNA services with minimal improvement in her functioning or strength. She has upcoming follow up with Neurology for MS. All questions were answered and the patient is in agreement with the plan. Follow up in 4-5 weeks for pill count and sooner as needed. Medications: Refilled 2 hydrocodone-acetaminophen 5-325 mg Partial Fill upon patient request. 1 tab PO BID 30 days PRN 60 tabs 0RF pain (scale score 7-10) G35 - Multiple sclerosis, M47.817 - Spondylosis without myelopathy or radiculopathy, lumbosacral region, M53.3 - Sacrococcygeal disorders, not elsewhere classified, M54.9 - Dorsalgia, unspecified Coding Level of Care Code Est Pt Level 4 (75982) Complex EM visit Add On G2211 Diagnoses Back pain M54.9 Multiple sclerosis G35 Lumbosacral spondylosis M47.817 Sacroiliac joint pain M53.3 Opioid contract exists Z79.891
--- OUTSIDE RECORDS SUMMARY | 2024-10-16 14:56 | XMS_ITS | Encounter Summary ---
Author Organization [employer] Address [address] [facility] [address] [place] [address] Care Team Providers Care Vp Treasurer Name Role Phone Lyn Lee Primary Care Provider [phone] Reason for Visit * Reason Comments Med Refill Encounter Details Date Type Department Care Team (Late st Contact Info) Description 10/19/2023 Refill [facility] MEDICINE [address] [place] [address] Lyn Lee ANP [address] [place] [address] Social History Tobacco Use Types Packs/Day Years Used Date Smoking Tobacco: Every Day Cigarettes Passive Smoke Exposure: Never Smokeless Tobacco: Never Alcohol Use Standard Drinks/Week Comments Never 0 (1 standard drink = 0.6 oz pur e alcohol) Housing Stability Answer Date Recorded What is your housing situation today? I have shaw cannon 07/09/[address] you li ve. Do you have problems with any of the following? None of the above 07/09/2023 Food Insecurity Answer Date Recorded Within the past 12 months, y ou worried that your food would run out before you got money to buy more: Never True 07/09/2023 Within the past 12 months,th e food you bought just didn't last and you didn't have enough money to get more: Never True Transportation Answer Date Recorded In the past 12 months, has l ack of transportation kept you from medical appts, meetings, work or from getting things needed for daily living? No 07/09/2023 Utilities Answer Date Recorded In the past 12 months, has t he electric, gas, oil or water company threatened to shut off services in your home? No 07/09/2023 Depression Answer Date Recorded Patient Health Questionnaire-2 Score 1 08/28/2022 Comments Unknown Sex and Gender Information Value Date Recorded Sex Assigned at Female 07/17/2022 10:17 AM EDT Legal Sex Female 10:17 AM EDT Gender Identity Choose not to disclose 10:17 AM EDT Sexual Orientation Don't know 07/17/2022 10 :17 AM EDT documented as of this encounter Plan of Treatment Upcoming Encounters Date Type Department Care Team (Late st Contact Info) Description 11/18/2024 11:00 AM EST Office Visit [facility] MEDICINE [address] [place] [phone] Lyn Lee ANP [address] [place] [phone] documented as of this encounter Visit Diagnoses Not on filedocumented in this encounter Care Teams Vp Treasurer Relationship Specialty Start Date End Date Lyn Lee ANP [address] [place] [phone] PCP - General Family Medicine 05/09/21 [facility] 08/19/24 documented as of this encounter
--- OUTSIDE RECORDS SUMMARY | 2024-10-16 14:56 | XMS_ITS | Encounter Summary ---
Author Organization [employer] Address [address] [facility] [address] [place] [address] Care Team Providers Care Vmware Systems Administrator Name Role Phone Lyn Lee Primary Care Provider [phone] Reason for Visit * Reason Comments Med Refill Encounter Details Date Type Department Care Team (Late st Contact Info) Description 09/20/2024 Refill [facility] MEDICINE [address] [place] [address] Lyn Lee ANP [address] [place] [address] Central pain syndrome Social History Tobacco Use Types Packs/Day Years Used Date Smoking Tobacco: Every Day Cigarettes Passive Smoke Exposure: Never Smokeless Tobacco: Never Alcohol Use Standard Drinks/Week Comments Never 0 (1 standard drink = 0.6 oz pur e alcohol) Housing Stability Answer Date Recorded What is your housing situation today? I have shaw cannon 01/22/[address] you li ve. Do you have problems with any of the following? None of the above 01/22/2024 Food Insecurity Answer Date Recorded Within the past 12 months, y ou worried that your food would run out before you got money to buy more: Never True 01/22/2024 Within the past 12 months,th e food you bought just didn't last and you didn't have enough money to get more: Never True 03/2024 Transportation Answer Date Recorded In the past 12 months, has l ack of transportation kept you from medical appts, meetings, work or from getting things needed for daily living? No 01/22/2024 Utilities Answer Date Recorded In the past 12 months, has t he electric, gas, oil or water company threatened to shut off services in your home? No 01/22/2024 Depression Answer Date Recorded Patient Health Questionnaire-2 Score 4 08/20/2024 Internet Access Answer Date Recorded Internet Access Q1 Yes 05/23/2024 Internet Access Q2 Not on file 05/23/2024 Comments Unknown Sex and Gender Information Value [...] Description 11/18/2024 11:00 AM EST Office Visit [facility] MEDICINE [address] [place] [phone] Lyn Lee ANP [address] [place] [address] documented as of this encounter Visit Diagnoses Diagnosis Central pain syndrome documented in this encounter Care Teams Vmware Systems Administrator Relationship Specialty Start Date End Date Lyn Lee ANP [address] [place] [phone] PCP - General Family Medicine 05/09/21 Roberto JAUREGUIA 08/19/24 documented as of this encounter
--- OUTSIDE RECORDS SUMMARY | 2024-10-16 14:56 | XMS_ITS | Encounter Summary ---
Author Organization [employer] Address [address] [facility] [address] [place] [address] Care Team Providers Care Glass Unloading Equipment Tender Name Role Phone Lyn Lee Primary Care Provider [phone] Encounter Details Date Type Department Care Team ([facility] st Contact Info) Description 09/24/2024 Telephone [facility] MEDICINE [address] [place] [address] Lyn Lee ANP [address] [place] [address] Social History Tobacco Use Types Packs/Day Years [...] Description 11/18/2024 11:00 AM EST Office Visit [facility] MEDICINE [address] [place] [phone] Lyn Lee ANP [address] [place] [phone] documented as of this encounter Visit Diagnoses Not on filedocumented in this encounter Care Teams Glass Unloading Equipment Tender Relationship Specialty Start Date End Date Lyn Lee ANP [address] [place] [phone] PCP - General Family Medicine 05/09/21 Roberto [facility] 08/19/24 documented as of this encounter
--- OUTSIDE RECORDS SUMMARY | 2024-10-16 14:56 | XMS_ITS | Encounter Summary ---
Author Organization [employer] Address [address] [place] [address] Care Team Providers Care Fire Crew Worker Name Role Phone Lny Lee DENI Primary Care Provider [phone] Reason for Visit * Reason Onset Date Comments November recall 09/26/2024 Encounter Details Date Type Department Care Team ([facility] st Contact Info) Description 09/26/2024 Telephone [facility] MEDICINE [address] [place], [place] [id number] Fritz Koch [place] November recall Social History Tobacco Use Types Packs/Day Years [...] AM EDT documented as of this encounter Miscellaneous Notes * Telephone Encounter - Fritz Koch MA - 09/26/2024 12:23 PM EST T/C to pt to schedule a recall f/u [facility]. PT agreed to come in on 11/18/24 at 11am. documented in this encounter Plan of Treatment Upcoming Encounters Date Type Department Care Team (Late st Contact Info) Description 11/18/2024 11:00 AM EST Office Visit [facility] MEDICINE [address] [place] [address] Lyn Lee ANP [address] [place] [address] documented as of this encounter Visit Diagnoses Not on filedocumented in this encounter Care Teams Fire Crew Worker Relationship Specialty Start Date End Date Lyn Lee ANP [address] [place] [phone] PCP - General Family Medicine 05/09/21 Roberto [facility] 08/19/24 documented as of this encounter
--- OUTSIDE RECORDS SUMMARY | 2024-10-16 14:57 | XMS_ITS | Encounter Summary ---
Author Organization [employer] Address [address] [facility] [address] [place] [address] Care Team Providers Care Internet Media Planner Name Role Phone Lyn Lee Primary Care Provider [phone] Reason for Visit * Reason Onset Date Comments Durable Medical Equipment 11/19/2023 Encounter Details Date Type Department Care Team (Late st Contact Info) Description 11/19/2023 Telephone [facility] [address] [place] [address] Lyn Lee ANP [address] [place] [address] Durable Medical Equipment Social History Tobacco Use Types Packs/Day Years [...] the past 12 months, has t he [employer], gas, oil or water company threatened to [...] encounter Miscellaneous Notes * Telephone Encounter - DENI Staton - 01/25/2024 12:44 PM EDT Can discuss w/ pt at next visit * Telephone Encounter - Prema Torres - 11/23/2023 9:46 AM EST PLEASE READ MESSAGE BELOW AND ADVICE, IF AGREE PROVIDE NOTES AND DX TO SUPPORT THE NEED. * Telephone Encounter - Elizabeth Anglin - 11/19/2023 12:06 PM EST [facility] requesting a cushion for commode. Please contact at pt at [phone] documented in this encounter Plan of Treatment Upcoming Encounters Date Type Department Care Team (Late st Contact Info) Description 11/18/2024 11:00 AM EST Office Visit [facility] [address] [place] [address] Lyn Lee ANP [address] [place] [address] documented as of this encounter Visit Diagnoses Not on filedocumented in this encounter Care Teams Internet Media Planner Relationship Specialty Start Date End Date Lyn Lee ANP [address] [place] [address] PCP - General Family Medicine 05/09/21 Roberto BRASHER 08/19/24 documented as of this encounter
--- OUTSIDE RECORDS SUMMARY | 2024-10-16 14:57 | XMS_ITS | Encounter Summary ---
Author Organization [facility] Address [address] [place] [address] Care Team Providers Care House Mover Supervisor Name Role Phone Lyn Lee Primary Care Provider [phone] Reason for Visit * Reason Onset Date Comments Financial Assistance 09/09/2024 Encounter Details Date Type Department Care Team (Late Contact Info) Description 09/09/2024 Telephone [facility] [address] [address] Mona Juárez Financial Assistance Social History Tobacco Use Types Packs/Day Years Used Date Smoking Tobacco: Every Day Cigarettes Passive Smoke Exposure: Past Smokeless Tobacco: Never Alcohol Use Standard Drinks/Week Comments No 0 (1 standard drink = 0.6 oz pur e alcohol) Comments Unknown Sex and Gender Information Value Date Recorded Sex Assigned at Female 10/05/2020 11:15 AM EST Legal Sex Female 10:34 AM EDT Gender Identity Female 10/05/2020 11:15 AM EST Sexual Orientation Straight 10/05/2020 11 :15 AM EST documented as of this encounter Miscellaneous Notes * Telephone Encounter - Mona Juárez - 09/09/2024 8:52 AM EST [place], Kesimpta 20mg/0.4ml Auto-injector I Spoke with loan servicing representative at [employer], they received prescriber page 3 of [employer] PAP Application but missing the drug strength on the form. You may refax to [phone] documented in this encounter Plan of Treatment Upcoming Encounters Date Type Department Care Team (Late st Contact Info) Description 11/11/2024 11:00 AM EST Office Visit [facility] [address] [place] [address] Hospitality Intern: Sri Oconnor MD [address] [place] [phone] 4:20 PM EDT Telehealth [facility] [address] [place] [address] Hospitality Intern: Stephen Muñoz MD [address] [place] [address] documented as of this encounter Visit Diagnoses Not on filedocumented in this encounter Care Teams House Mover Supervisor Relationship Specialty Start Date End Date Lyn Lee [address] [place] [id number] PCP - General 08/29/21 documented as of this encounter
--- OUTSIDE RECORDS SUMMARY | 2024-10-16 14:57 | XMS_ITS | Clinical Summary ---
[facility] Organization [email or web address] Address [address] [place] [address] Care Team Providers Care Compound Machine Operator Name Role Phone Bradley Maddox MD Primary Care Provider Social History Tobacco Use Types Packs/Day Years Used Date Smoking Tobacco: Never Assessed Sex and Gender Information Value Date Recorded Sex Assigned at Not on file Gender Identity Not on file Sexual Orientation Not on file Plan of Treatment Health Maintenance Due Date Last Done Comments Breast Cancer Screening 1973 DTaP,Tdap,and Td Vaccines (1 - Tdap) 1992 Hepatitis B Vaccines (1 of 3 - 19+ 3-dose series) 1992 Cervical Cancer Screening: P ap Smear 1994 Zoster Vaccines (1 of 2) 12/23/2023 COVID-19 Vaccine (2023-2 5 season) 2024 Influenza Vaccine (#1) 2024 HIB Vaccines Aged Out No longer eligi ble based on patient's age to complete this topic HPV Vaccines Aged Out No longer eligi ble based on patient's age to complete this topic Hepatitis A Vaccines Aged Out No long er eligible based on patient's age to complete this topic IPV Vaccines Aged Out No longer eligi ble based on patient's age to complete this topic MMR Vaccines Aged Out No longer eligi ble based on patient's age to complete this topic Meningococcal ACWY Vaccine Aged Out N o longer eligible based on patient's age to complete this topic Pneumococcal Vaccine: Pediat rics (0 to 5 Years) and At-Risk Patients (6 to 64 Years) Aged Out No longer eligible b ased on patient's age to complete this topic RSV Immunization Patients Un meghann 20 months Aged Out No longer eligible b ased on patient's age to complete this topic Varicella Vaccines Aged Out No longer eligible based on patient's age to complete this topic Care Teams Compound Machine Operator Relationship Specialty Start Date End Date Bradley Maddox MD [address] [place] [address] PCP - General Internal Medicine 11/07/18
--- OUTSIDE RECORDS SUMMARY | 2024-10-16 14:57 | XMS_ITS | Clinical Summary ---
Author Organization [facility] Address [address] [place] [address] Care Team Providers Care Fitness Director Name Role Phone Lyn Lee Primary Care Provider [phone] Allergies Active Allergy Reactions Criticality Noted Date Comments Gabapentin Swelling High 06/20/2021 Other Rash Low 06/13/2018 sardines Penicillins Rash Low 06/13/2018 Dimethyl Fumarate Angioedema High 06/13/2018 Reports having slow onset throat swelling, took for 4 months total Medications * This document contains information received from the source organization and may not represent a complete record from that organization. amLODIPine (NORVASC) 10 mg tablet Take 10 mg by mouth daily. 6 8 Active FIBER LAXATIVE, CA POLYCARBO, 625 mg tablet Take 1 tablet by mouth daily. 5 8 Active VITAMIN D3 2,000 unit capsule Take 2 capsules by mouth daily. 11 8 Active FLOVENT HFA 220 mcg/actuation inhaler INHALE 1 PUFF TWICE A DAY 0 8 Active omeprazole (PriLOSEC) 20 mg capsule TAKE ONE CAPSULE BY MOUTH TWICE A DAY BEFORE MEALS 5 8 Active cyanocobalamin 1,000 mcg tablet Take 1,000 mcg by mouth daily. Active albuterol (PROAIR HFA,VENTOLIN HFA) 90 mcg inhaler INHALE 1 OR 2 PUFFS BY MOUTH EVERY 4 TO 6 HOURS NEEDED FOR DIFFICULTY BREATHING 0 9 Active aspirin chewable tablet 81 mg Chew and swallow 81 mg by mouth once a day. Active atorvastatin (LIPITOR) 20 mg tablet Take 20 mg by mouth once a day. Active entecavir (BARACLUDE) 0.5 mg tablet Take 1 tablet (0.5 mg total) by mouth once a day. 30 tablet 11 05/08/2023 2:47 PM EDT 2 Active mirtazapine (REMERON) 30 mg tabletIndicatio ns:Insomnia due to medical condition Take 1 tablet (30 mg total) by mouth nightly. 30 tablet 3 3 Active venlafaxine XR (EFFEXOR XR) 37.5 mg capsule Take 1 capsule (37.5 mg total) by mouth once a day. 30 capsule 2 4 Active Banophen 25 mg capsule TOME 1 CAPSULA POR VIA ORAL TODOS LOS KIM EN LA NOCHE CUANDO SEA NECESARIO PARA DORMIR 90 capsule 2 4 Active ofatumumab (Kesimpta Pen) 20 mg/0.4 mL pen injectorIndicat ions:MS (multiple sclerosis) (HCC) Inject 0.4 mL (20 mg total) under the skin every 28 days. 0.4 mL 11 4 Active topiramate (TOPAMAX) 50 mg tabletIndicatio ns:Seizure disorder (CMS/HCC) (HCC),Anxiety and depression Take 1 tablet (50 mg total) by mouth See admin instructions. TOME BERNADETTE TABLETA POR VIA ORAL CADA MANANA 2 AL ACOSTARSE 270 tablet 1 4 Active Alcohol Prep Pads pads, medicated USE SEG N LO INDICADO DOS VECES AL D A 4 Active Laxative, bisacodyl, 5 mg EC tablet TAKE 4 TABLETS BY MOUTH AT NOON THE DAY BEFORE COLONOSCOPY 4 Active clotrimazole (LOTRIMIN) 1% cream APLIQUE AL JAVIER AFECTADA DOS VECES AL D A POR 28 KIM 4 Active fluconazole (DIFLUCAN) 150 mg tablet TOME BERNADETTE TABLETA TODOS LOS D EN LA MA ALLY POR 2 D 4 Active Arnuity Ellipta 200 mcg/actuation blister with device INHALE UN SOPLIDO EN LA MA ALLY 4 Active metFORMIN (GLUCOPHAGE) 500 mg tablet TOME BERNADETTE TABLETA (500 MG) POR V A ORAL CON EL DESAYUNO AND WITH EVENING MEAL 4 Active nicotine polacrilex (NICORETTE) 2 mg gum CHEW 1 PIECE OF GUM UP TO EVERY 2 HOURS NEEDED FOR SMOKING CESSATION 4 Active nitrofurantoin monohydrate/mac rocrystals (MACROBID) 100 mg capsule TOME 1 C PSULA POR V A ORAL DOS VECES AL D A POR 7 D 4 Active phenazopyridine (PYRIDIUM) 100 mg tablet TOME 1 TABLETA POR V A ORAL JR VECES AL D A FOR PAIN POR 3 D 4 Active senna 8.6 mg tablet TOME DOS TABLETAS POR V A ORAL TODOS LOS D CUANDO SEA NECESARIO PARA EL ESTRE IMIENTO 4 Active amitriptyline (ELAVIL) 10 mg tabletIndicatio ns:Neuropathic pain syndrome (non-herpetic) Take 2 tablets (20 mg total) by mouth nightly. 180 tablet 4 Active levETIRAcetam (KEPPRA) 750 mg tabletIndicatio ns:Seizure disorder (CMS/HCC) (HCC) Take one tab q am and 2 tabs q pm 270 tablet 5 4 Active baclofen (LIORESAL) 10 mg tabletIndicatio ns:Spasticity Take 2 tablets (20 mg total) by mouth 3 times a day. 540 tablet 4 10/29/19 25 Active Active Problems Problem Noted Date Diagnosed Date Cognitive deficits 09/04/2023 Assessment & Plan (09/04/2023 9:46 AM EST): PLAN: 1. We will obtain metabolic workup. 2. We will proceed with neuropsychologic evaluation once her mood is stable. Neuropathic pain syndrome (non-herpetic) 023 Assessment & Plan (11/07/2023 10:44 AM EST): PLAN: 1. We will increase the dose of baclofen to 20 mg in the night. 2. We will increase the dose of amitriptyline to 20 mg daily. 3. We will refer her to pain management. Assessment & Plan (09/04/2023 9:44 AM EST): PLAN: 1. We will increase the dose of baclofen to 15 mg goal dose 3 times daily. 2. We will increase the dose of amitriptyline to 20 mg daily. 3. We will refer her to pain management. Cannabis abuse, continuous use 02/27/2022 Nicotine dependence with current use 02/22/2021 Spasticity 02/21/2021 Assessment & Plan (11/07/2023 10:45 AM EST): PLAN: 1. We will increase the dose of baclofen to 15 mg a.m., p.m. and 20 mg at night. Assessment & Plan (09/04/2023 9:44 AM EST): PLAN: 1. We will increase the dose of baclofen to 15 mg a.m., p.m. and 10 mg at night. Assessment & Plan (09/15/2022 2:39 PM EST): PLAN: 1. We will increase the hickman of Baclofen to 20mg daily. Assessment & Plan (03/16/2022 12:04 PM EDT): PLAN: 1. We will start a low-dose of baclofen. Assessment & Plan (02/21/2021 7:09 AM EDT): PLAN: 1. We will start a low-dose of baclofen. Neurogenic bladder 05/04/2020 Assessment & Plan (09/15/2022 2:41 PM EST): PLAN: 1. We will refer her to Dr. Krishnan. Assessment & Plan (05/04/2020 10:59 AM EDT): PLAN: 1. Continue to follow-up with urology in [place]. 2. Reinforced limiting caffeine and Kegel's. Psychogenic nonepileptic seizure 04/11/2020 Assessment & Plan (03/16/2022 12:05 PM EDT): PLAN: 1. Continue to follow-up with Dr. Barnett. Insomnia due to medical condition 04/11/2020 Anxiety and depression 07/08/2019 Assessment & Plan (11/07/2023 10:45 AM EST): PLAN: 1. We will refer her back to neuropsychiatry. 2. We will refer her back to therapy. Assessment & Plan (09/04/2023 9:44 AM EST): PLAN: 1. Continue to follow-up with neuropsychiatry. 2. We discussed stress management techniques. Assessment & Plan (09/15/2022 2:41 PM EST): PLAN: 1. Continue to follow-up with neuropsychiatry. 2. We discussed referring to support group for MS. 3. We will refer her to social worker assistant. Assessment & Plan (02/21/2021 7:08 AM EDT): PLAN: 1. Continue to follow-up with neuropsychiatry. 2. We discussed referring to support group for MS. 3. We had a long discussion about the importance of management of anxiety and depression as well as smoking cessation. Assessment & Plan (10/05/2020 4:18 PM EST): PLAN: 1. Continue to follow-up with neuropsychiatry. 2. We discussed referring to support group for MS. 3. We had a long discussion about the importance of management of anxiety and depression as well as smoking cessation. Assessment & Plan (05/04/2020 10:56 AM EDT): PLAN: 1. Continue to follow-up with neuropsychiatry. 2. We discussed referring to support group for MS. 3. We had a long discussion about the importance of management of anxiety and depression as well as smoking cessation. Exposure to hepatitis B 05/16/2019 PTSD (post-traumatic stress disorder) 12/09/2018 MS (multiple sclerosis) 06/13/2018 Assessment & Plan (11/07/2023 10:44 AM EST): PLAN: 1. We will continue with ofatumumab. We will evaluate in person for the next evaluation. All 2.We will obtain MRI of the brain and cervical spine. 3. We will follow IgG/IgM levels. Assessment & Plan (09/04/2023 9:45 AM EST): PLAN: 1. We will continue with ofatumumab. We will follow-up closely 2. We will obtain MRI of the brain, cervical. 3. We will follow CBC, CMP, IgG and IgM. Assessment & Plan (09/15/2022 2:40 PM EST): PLAN: 1. We will continue with ofatumumab due to good response to treatment. 2. We will obtain MRI of the brain, cervical and thoracic spine next year. 3. We will follow CBC, CMP, IgG and IgM. Assessment & Plan (03/16/2022 12:04 PM EDT): PLAN: 1. We will continue with ofatumumab due to good response to treatment. 2. We will obtain MRI of the brain, cervical and thoracic spine. 3. We will follow CBC and CMP. 4. We will refer to physical therapy. Assessment & Plan (02/21/2021 7:07 AM EDT): PLAN: 1. We discussed changing therapy to Kesimpta due to ongoing symptoms and previous reactions to Ocrelizumab. 2. We will obtain MRI of the brain and cervical spine to evaluate radiological survey of her disease. 3. Continue with physical therapy. 4. We will obtain metabolic work-up prior to changing treatment. Assessment & Plan (10/05/2020 4:17 PM EST): PLAN: 1. We will continue with ocrelizumab infusions every 6 months. We discussed pre-medication with Prednisone 30mg starting 2 days prior to the infusion. Benadryl IV and Famotidine. If there is a reaction we will proceed with Kesimpta. 2. We will obtain MRI of the brain and cervical spine this year to evaluate radiological survey of her disease. 3. We will refer to physical therapy. 4. Continue with vitamin D supplementation. Assessment & Plan (05/04/2020 10:55 AM EDT): PLAN: 1. We will continue with ocrelizumab infusions every 6 months. 2. We will obtain MRI of the brain and cervical spine in August to evaluate radiological survey of her disease. 3. We will refer to physical therapy after surgery for her left shoulder. 4. Continue with vitamin D supplementation. Seizure disorder ([facility]) 06/13/2018 Assessment & Plan (09/04/2023 9:43 AM EST): PLAN: 1. Continue with the current dose of Keppra. Assessment & Plan (02/21/2021 7:08 AM EDT): PLAN: 1. Continue to follow-up with neuropsychiatry. 2. We discussed admission to EMU for better characterization of her seizures. Assessment & Plan (05/04/2020 10:56 AM EDT): PLAN: 1. Continue to follow-up with neuropsychiatry. Encounters Date Type Department Care Team Description 09/16/2024 Refill [facility] [address] [place] [id number] Seed Cleaner: Sri Oconnor MD Seizure disorder (CMS/HCC) ([facility]) 09/09/2024 Telephone [facility] [address] [address] Mona Juárez Financial Assistance 07/30/2024 Refill [facility] [address] [place] [phone] Nupur Mendoza [place] Spasticity from Last 3 Months Family History Medical History Relation Name Comments COPD Father Dementia Mother Heart disease Mother Hypertension Mother Anxiety disorder Other Depression Other Schizophrenia Other Multiple sclerosis Neg Hx Relation Name Status Comments Father Alive Mother Alive Other Social History Tobacco Use Types Packs/Day Years Used Date Smoking Tobacco: Every Day Cigarettes Passive Smoke Exposure: Past Smokeless Tobacco: Never Tobacco Cessation:Ready to Q uit: Not Asked; Counseling Given: Not Answered Alcohol Use Standard Drinks/Week Comments No 0 (1 standard drink = 0.6 oz pur e alcohol) Comments Unknown Sex and Gender Information Value Date Recorded Sex Assigned at Female 10/05/2020 11:15 AM EST Legal Sex Female 10:34 AM EDT Gender Identity Female 10/05/2020 11:15 AM EST Sexual Orientation Straight 10/05/2020 11 :15 AM EST Last Filed Vital Signs Vital Sign Reading Time Taken Comments Blood Pressure 108/69 03/06/2024 12:52 PM EDT Pulse 91 03/06/2024 12:52 PM EDT Temperature 36.8 ??C (98.3 ??F) 03/06/2024 12:52 PM E DT Respiratory Rate 16 01/14/2024 1:09 PM EDT Oxygen Saturation 100% 03/24/2021 1:11 PM EDT Inhaled Oxygen Concentration - - Weight 86.9 kg (191 lb 9.6 oz) 03/06/2024 12:52 PM EDT Height 154.9 cm (5' 1 ) 01/14/2024 1:09 PM EDT Body Mass Index 36.2 01/14/2024 1:09 PM EDT Plan of Treatment Upcoming Encounters Date Type Department Care Team (Late st Contact Info) Description 11/11/2024 11:00 AM EST Office Visit [facility] [address] [place] [address] Seed Cleaner: Sri Oconnor MD [address] [place] [id number] 2024 4:20 PM EDT Telehealth [facility] [address] [place] [address] Seed Cleaner: Stephen Muñoz MD [address] [place] [address] Health Maintenance Due Date Last Done Comments Cervical Cancer Screening 1973 Cologuard 1973 Colonoscopy 1973 HIV Screening 1973 HPV and Pap Smear 1973 Pap Smear 1973 Sigmoidoscopy 1973 Hepatitis B Vaccines (1 of 3 - 19+ 3-dose series) 1992 CT Lung Cancer Screening (Baseline) 12/23/2023 Zoster Vaccines (1 of 2) 12/23/2023 Colon Cancer Screening 12/28/2023 FOBT / Fit Test 12/28/2023 12/27/2022 COVID-19 Vaccine (3 - 2023-2 5 season) 2024 02/21/2021, 01/24/2021 Influenza Vaccine (#1) 2024 , 09/11/2019, 10/20/2018, Additional history exists Alcohol/Substance Use Screening 09/17/2024 Depression Evaluation 09/17/2024 Social Drivers of Health Ashwini ual Screening 09/17/2024 DTaP,Tdap,and Td Vaccines (2 - Td or Tdap) 05/17/2025 05/17/2015, 11/01/2007 Mammogram 11/12/2025 11/12/2023, 10/17/2017 RSV Vaccine (60+ years old a nd patients) (1 - 1-dose 75+ series) 2048 Hepatitis C Screening Completed 05/16/2019 Pneumococcal Vaccine: Pediat matt (0-5 Years) and At-Risk Patients (6-64 Years) Completed 03/27/2024, 04/12/2016, 10/07/2014 Procedures * Due to [place] [employer] law, this organization might not be sharing negative HIV tests. Procedure Name Priority Date/Time Associated Diagnosis Comments HEPATITIS PANEL, ACUTE Routine 05/16/2019 3:05 PM EDT Exposure to hepatitis B from Last 3 Months or Most Recently Relevant to Health Maintenance Results * Due to [place] [employer] law, this organization might not be sharing negative HIV tests. * Hepatitis Panel, Acute (05/16/2019 3:05 PM EDT) Hepatitis A IgM NON-REACT MARGY NON-REACT MARGY 05/17/2019 3:02 AM EDT [facility] Hepatitis B Surface Antigen NON-REACT MARGY NON-REACT MARGY 05/17/2019 3:02 AM EDT [facility] Hepatitis B Core Antibody NON-REACT MARGY NON-REACT MARGY 05/17/2019 3:02 AM EDT [facility] Hepatitis C Antibody NON-REACT MAGRY NON-REACT MARGY 05/17/2019 3:02 AM EDT [facility] Signal To Cut-Off 0.02 <1.00 05/17/2019 3:02 AM EDT [facility] Comment: HCV antibody was non-reactive. There is no laboratory evidence of HCV infection. In most cases, no further action is required. However, if recent HCV exposure is suspected, a test for HCV RNA (test code 33810) is suggested. For additional information please refer to http://education.NuFlick/faq/DMS67z8 (This link is being provided for informational/ educational purposes only.) Blood specimen (specimen) Structure of peripheral vein / Unknown Venipuncture / Unknown 05/16/2019 3:05 PM EDT 05/16/2019 3:29 PM EDT Narrative [facility] - 05/17/2019 3:02 AM EDT [facility] Received Date: us Alejandra Sotelo DO LAB BLOOD ORDERABLES Final Re sult [facility] [address], [place] [address], [place] [phone] [facility] [address], [place] [address], [place] [phone] from Last 3 Months or Most Recently Relevant to Health Maintenance Insurance [employer] Care Teams Fitness Director Relationship Specialty Start Date End Date Lyn Lee [address] [place], [place] [id number] PCP - General 08/29/21
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
--- OUTSIDE RECORDS SUMMARY | 2024-10-16 14:57 | XMS_ITS | Referral Summary ---
Author Organization [facility] Address [address] [place] [address] Care Team Providers Care Wildlife Policy Professional Name Role Phone Lyn Lee Primary Care Provider [phone] Encounters Date Type Department Care Team Description 09/16/2024 Refill [facility] Multiple Sclerosis Clinic [address] [place] [phone] Riprap Placing Supervisor: Sri Oconnor MD Seizure disorder ([facility]) ([facility]) 09/09/2024 Telephone [facility] Building [address] [place] [address] Mona Juárez Financial Assistance 07/30/2024 Refill [facility] Neurology Clinic [address] [place] [phone] Nupur Mendoza [place] Spasticity from Last 3 Months Allergies Active Allergy Reactions Criticality Noted Date [...] mg/0.4 mL pen injectorIndicat ions:MS (multiple sclerosis) ([facility]) Inject 0.4 mL (20 mg total) under the skin every 28 days. 0.4 mL 11 4 Active topiramate (TOPAMAX) 50 mg tabletIndicatio ns:Seizure disorder (CMS/HCC) ([facility]),Anxiety and depression Take 1 tablet (50 mg [...] 1. Continue to follow-up with urology in [place]. 2. Reinforced limiting caffeine and Kegel's. Psychogenic [...] 3. We will refer her to social services director. Assessment & Plan (02/21/2021 7:08 AM EDT): [...] Continue with vitamin D supplementation. Seizure disorder (CMS/HCC) 06/13/2018 Assessment & Plan (09/04/2023 9:43 AM EST): PLAN: 1. Continue with the current dose of Keppra. Assessment & Plan (02/21/2021 7:08 AM EDT): PLAN: 1. Continue to follow-up with neuropsychiatry. 2. We discussed admission to EMU for better characterization of her seizures. Assessment & Plan (05/04/2020 10:56 AM EDT): PLAN: 1. Continue to follow-up with neuropsychiatry. Social History Tobacco Use Types Packs/Day Years [...] Description 11/11/2024 11:00 AM EST Office Visit [facility] Multiple Sclerosis [facility] [address] [place] [address] Riprap Placing Supervisor: Sri Oconnor MD [address] [place] [address] 2024 4:20 PM EDT Telehealth [facility] Rheumatology Clinic [address] [place] [address] Riprap Placing Supervisor: Stephen Muñoz MD [address] [place] [phone] Procedures * Due to [place] state law, this organization might not be sharing negative HIV tests. Procedure Name Priority Date/Time Associated Diagnosis Comments HEPATITIS PANEL, ACUTE Routine 05/16/2019 3:05 PM EDT Exposure to hepatitis B from Last 3 Months or Most Recently Relevant to Health Maintenance Results * Due to [place] state law, this organization might not be sharing negative HIV tests. * Hepatitis Panel, Acute (05/16/2019 3:05 PM EDT) Hepatitis A IgM NON-REACT MARGY NON-REACT MARGY 05/17/2019 3:02 AM EDT [facility] Hepatitis B Surface Antigen NON-REACT MARGY NON-REACT MARGY 05/17/2019 3:02 AM EDT [facility] Hepatitis B Core Antibody NON-REACT MARGY NON-REACT MARGY 05/17/2019 3:02 AM EDT [facility] Hepatitis C Antibody NON-REACT MARGY NON-REACT MARGY 05/17/2019 3:02 AM EDT [facility] Signal To Cut-Off 0.02 <1.00 05/17/2019 3:02 AM EDT [facility] Comment: HCV antibody was non-reactive. There is no laboratory evidence of HCV infection. In most cases, no further action is required. However, if recent HCV exposure is suspected, a test for HCV RNA (test code 91341) is suggested. For additional information please refer to http://education.[employer]/faq/AXS84x0 (This link is being provided for informational/ educational purposes only.) Blood specimen (specimen) Structure of peripheral vein / Unknown Venipuncture / Unknown 05/16/2019 3:05 PM EDT 05/16/2019 3:29 PM EDT Narrative [facility] TEAGUE - 05/17/2019 3:02 AM EDT [facility] Received Date: us Alejandra Sotelo DO LAB BLOOD ORDERABLES Final Re sult [facility] [address] [facility] [address] [facility], [place] [address], [place] [phone] [facility] [address] [facility] 3rd [address], [place] [address], [place] [phone] from Last 3 Months or Most Recently Relevant to Health Maintenance Insurance [facility] [employer] [place] [id number] Care Teams Wildlife Policy Professional Relationship Specialty Start Date End Date Lyn Lee [address] [place] [phone] PCP - General 08/29/21
--- OUTSIDE RECORDS SUMMARY | 2024-10-16 14:57 | XMS_ITS | Encounter Summary ---
Author Organization [facility] Address [address] [place] [address] Care Team Providers Care Jewel Hole Gauger Name Role Phone Lyn Lee Primary Care Provider [phone] Reason for Visit * Reason Comments Med Refill Encounter Details Date Type Department Care Team (Late st Contact Info) Description 09/16/2024 Refill [facility] Multiple Sclerosis Clinic [address] [place] [phone] Transit Mix Operator: Sri Oconnor MD [address] [place] [phone] Seizure disorder (CMS/HCC) ([facility]) Social History Tobacco Use Types Packs/Day Years [...] encounter Miscellaneous Notes * Telephone Encounter - Maye Ramey LPN - 09/16/2024 8:52 AM EST Prescription was sent in on 07/02/2024 with 5 refills. Please check the prescriptions when you receive them!!!!!!! documented in this encounter Plan of Treatment Upcoming Encounters Date Type Department Care Team (Late st Contact Info) Description 11/11/2024 11:00 AM EST Office Visit [facility] Multiple Sclerosis Clinic [address] [place] [address] Transit Mix Operator: Sri Oconnor MD [address] [place] [phone] 4:20 PM EDT Telehealth [facility] Rheumatology Clinic [address] [place] [address] Transit Mix Operator: Stephen Muñoz MD [address] [place] [phone] documented as of this encounter Visit Diagnoses Diagnosis Seizure disorder (CMS/HCC) (HCC) Unspecified epilepsy without mention of intractable epilepsy documented in this encounter Care Teams Jewel Hole Gauger Relationship Specialty Start Date End Date Lyn Lee [address] [place] [address] PCP - General 08/29/21 documented as of this encounter
--- OUTSIDE RECORDS SUMMARY | 2024-10-16 14:57 | XMS_ITS | Encounter Summary ---
Author Organization [employer] Address [address] [facility] [address] [place] [address] Care Team Providers Care Admission Liaison Name Role Phone Lyn Lee Primary Care Provider [phone] Encounter Details Date Type Department Care Team ([facility] st Contact Info) Description 01/25/2024 Orders Only [facility] MEDICINE [address] [place] [address] Lyn Lee ANP [address] [place] [address] Social History Tobacco Use Types Packs/Day Years [...] Description 11/18/2024 11:00 AM EST Office Visit [facility] MEDICINE [address] [place] [address] Lyn Lee ANP [address] [place] [address] documented as of this encounter Visit Diagnoses Not on filedocumented in this encounter Care Teams Admission Liaison Relationship Specialty Start Date End Date Lyn Lee ANP [address] [place] [phone] PCP - General Family Medicine 05/09/21 Roberto VNA 08/19/24 documented as of this encounter
--- OUTSIDE RECORDS SUMMARY | 2024-10-16 14:57 | XMS_ITS | Encounter Summary ---
Author Organization [employer] Address [address] [facility] [address] [place] [address] Care Team Providers Care It Consulting Manager Name Role Phone Lyn Lee Primary Care Provider [phone] Reason for Visit * Reason Onset Date Comments Med Refill 07/24/2024 Encounter Details Date Type Department Care Team ([facility] st Contact Info) Description 07/24/2024 Telephone [facility] MEDICINE [address] [place] [address] Lyn Lee ANP [address] [place] [address] Med Refill Social History Tobacco Use Types Packs/Day Years [...] the past 12 months, has t he [employer], gas, oil or water company threatened to shut off services in your home? No 01/22/2024 Depression Answer Date Recorded Patient Health Questionnaire-2 Score 1 08/28/2022 Internet Access Answer Date Recorded Internet Access [...] encounter Miscellaneous Notes * Telephone Encounter - Chelsea Calix LPN - 07/24/2024 2:08 PM EST Medication pended to PCP. * Telephone Encounter - Martín Mendoza - 07/24/2024 2:04 PM EST TC from pt requesting medication refill. Medications needing refill: cholecalciferol (Vitamin D-3) 50 MCG (1999) capsule To be sent to: [facility]/pharmacy #[id number] [place] [address] documented in this encounter Plan of Treatment Upcoming Encounters Date Type Department Care Team (Late st Contact Info) Description 11/18/2024 11:00 AM EST Office Visit [facility] MEDICINE [address] [place] [address] Lyn Lee ANP [address] [place] [address] documented as of this encounter Visit Diagnoses Not on filedocumented in this encounter Care Teams It Consulting Manager Relationship Specialty Start Date End Date Lyn Lee ANP [address] [place] [address] PCP - General Family Medicine 05/09/21 Roberto A 08/19/24 documented as of this encounter
--- OUTSIDE RECORDS SUMMARY | 2024-10-16 14:57 | XMS_ITS | Encounter Summary ---
Author Organization [facility] Address [address] [place] [address] Care Team Providers Care Material Crew Supervisor Name Role Phone Lyn Lee Primary Care Provider [phone] Reason for Visit * Reason Onset Date Comments [facility] 08/17/2022 Encounter Details Date Type Department Care Team (Late st Contact Info) Description 08/17/2022 Telephone [facility] Central Scheduling Department [address] [place] [address] Telephone Intake, Staff [facility] Social History Tobacco Use Types Packs/Day Years Used Date Smoking Tobacco: Every Day Cigarettes Smokeless Tobacco: Never Alcohol Use Standard Drinks/Week [...] encounter Miscellaneous Notes * Telephone Encounter - Fariba Page - 08/17/2022 8:39 AM EST Pt calling asking if Naomi Nesbitt recvd paperwork through email, prescriber application for [employer]. Please reach out to pt. documented in this encounter Plan of Treatment Upcoming Encounters Date Type Department Care Team (Late st Contact Info) Description 11/11/2024 11:00 AM EST Office Visit [facility] Multiple Sclerosis Clinic [address] [place] [address] Clinical Nursing Coordinator: Sri Oconnor MD [address] [place] [phone] 4:20 PM EDT Telehealth [facility] Rheumatology Clinic [address] [place] [address] Clinical Nursing Coordinator: Stephen Muñoz MD [address] [place] [phone] documented as of this encounter Visit Diagnoses Not on filedocumented in this encounter Care Teams Material Crew Supervisor Relationship Specialty Start Date End Date Lyn Lee [address] [place] [phone] PCP - General 08/29/21 documented as of this encounter
== END 2024-10-16 11:29 | disposition home or self-care (01) ==
PROVIDERS: PCP Nurse Practitioner Primary Care; Visit Provider Nurse Practitioner Family
DX: M54.9 Dorsalgia, unspecified (principal); G35 Multiple sclerosis; M47.817 Spondylosis without myelopathy or radiculopathy, lumbosacral region; Z79.891 Long term (current) use of opiate analgesic; M53.3 Sacrococcygeal disorders, not elsewhere classified
CPT/HCPCS: 99214; G2211

== ENCOUNTER → 2024-10-16 11:02 | Outpatient (BNVA) | payer OTHER, SELFPAY | PROVIDERS: PCP Nurse Practitioner Primary Care; Visit Provider Nurse Practitioner Family | DX: M54.9 Dorsalgia, unspecified (principal); G35 Multiple sclerosis; M47.817 Spondylosis without myelopathy or radiculopathy, lumbosacral region; M53.3 Sacrococcygeal disorders, not elsewhere classified; Z51.81 Encounter for therapeutic drug level monitoring; Z79.891 Long term (current) use of opiate analgesic | CPT/HCPCS: 99212 ==

== ENCOUNTER 2024-11-13 11:01 | Outpatient (AMB) | payer OTHER, SELFPAY ==
--- NOTE | 2024-11-13 11:02 | A.OFFVIS_ITS ---
Vital Signs 3 11/13/24 11:12 Height 5 ft 2 in BP 129/75 Blood Pressure Location Lt brachial Position Sitting Pulse 87 Pulse Source Pulse Oximeter Pulse Oximetry (%) 96 Oxygen Delivery Method Room Air Intake Visit Reasons: Pill Count Intake Note: Beverly comes in today for a pill count to hydrocodone-acetaminophen, patient should have 24 tablets and presents with 17 tablets which she last took today 11/13/24 at 9am. Pain today 10/10 Unfortunately patient is short 7 tablets which she 3.5 days short, Per [facility] and [facility] pharmacy patient did waste picker medication on 10/26/24, patients medication was filled on 10/24/24 which the bottle date does reflect however was not picked up until 10/26/24. Patient denies taking any extra medications or having any medication anywhere else. Due to being 7 tablets short this would result in a suspension from the opioid program. Auto Headlight Mechanic Required: Yes Auto Headlight Mechanic Language: Senior Web Services Developer Services: Auto Headlight Mechanic Offered & Declined Auto Headlight Mechanic Name: COLLETER Allergies Penicillins [PENICILLINS] Allergy (Severe, Verified 11/13/24 11:13) HIVES gabapentin Allergy (Unknown, Verified 11/13/24 11:13) Swelling sardine Allergy (Unknown, Uncoded 10/16/24 11:08) rash HPI Comments Details: Patient presents today for a pill count. Patient is supposed to have #24 pills, in her possession has #17 pills. Unfortunately, this demonstrates an irresponsible attitude towards her medication regimen. Patient reports inadequate analgesia on current medication regime without noted side effects. Pain is rated at 10/10. Denies any constipation, nausea, sedation, dizziness, or urinary retention. Patient states she has increased low back pain and bilateral lower extremity pain due to neuropathy. Her most recent A1C=6.2. She reports bilateral lower leg and feet pain is worse than back pain. She states she recently saw her Neurologist at [facility] and was told she can take more pain medication for pain. Unfortunately, patient was taking more than twice daily on few days per Neurologist and failed to notify our office. She is aware this is a violation of opiod contract. Denies any recent cough, cold, infection, fever or other significant changes in medical history since last office visit. PHQ-9 SCORE: 3 OPIOID RISK STRATIFICATION SURVEY SCORE: 10 PRIOR: Patient is a pleasant 48 years old Greenlandic speaking female with history of multiple sclerosis, spasticity, seizure disorder, low back pain, mild thoracolumbar levoscoliosis, L4-L5 anterior spondylolisthesis and facet athropathy, h/o lumbar synovial cyst removal, fibromyalgia, poor sleep, obesity, Bipolar disorder, presents today for initial evaluation of axial low back pain and widespread body pain. Patient reports increasing falls for the past month due to gait imbalances and right sided weakness with MS. She completed formal physical therapy about 2 years ago and is interested in home PT. She is followed by Neurology at [facility] for MS and has repeat brain and cervical spine MRI in December 2024. MS is treated with ofatumumab, prednisone 20 mg day before and 10 mg day of Kesimpta injection. Reports recent loss of her mom in April 2024 which has been physically and emotionally stressful for her. Patient reports daily chronic pain negatively affects her ADLs, functioning, mobility, sleep, mood, social interactions and quality of life. Patient completed multiple medication trials, including gabapentin which caused her bilateral leg swelling. Currently she is on amitrityline, baclofen, duloxetine, Ibuprofen, naproxen, and mirtazapine with continued chronic pain. Denies any fever or chills, abdominal or groin pain, dizziness, shortness of breaths, bladder or bowel dysfunction or saddle anesthesia. Location: Low back pain, widespread body pain Duration: Chronic pain since 2016 Characteristics of symptom or complaint: Aching, shooting, burning, throbbing, sharp, spasming, tingling Aggravating or associated factors: Any movement, walking, standing, prolonged sitting, cold weather, stress Relieving factors: Nothing multiple oral medication trials Treatment: PT, MS follow up at [facility] Neurology, [facility] services, [facility] Medical History Seizures Multiple sclerosis Smoker Dyspnea on exertion Back pain Weight loss, unintentional Post-COVID syndrome Surgical History H/O shoulder surgery Tubal ligation status Hx of section Family History Paternal Aunt Breast CA Social History Household Members: None Housing: Apartment Alcohol intake: never Patient Tobacco Use Status: Current everyday Tobacco user Cigarette Packs Per Day: 0.5 Cigarettes Per Day: 10 Years Smoked: 28 years Substance Use Type: Marijuana Current occupational status: disabled Sexual orientation: Straight/Heterosexual Gender identity: Female Female Reproductive History Menstrual Age of Menarche: 10 Review of Systems Const All systems reviewed & are unremarkable except as noted in HPI and below Physical Exam Vital Signs: Last Vital Signs Pulse 87 11/13/24 11:12 BP 129/75 11/13/24 11:12 Pulse Ox 96 11/13/24 11:12 Oxygen Delivery Method Room Air 11/13/24 11:12 General: Appears afebrile. Alert and oriented. Mood and affect appropriate. Follows and participates in conversation appropriately. Respiratory effort is unlabored. No cough. Able to transition from sit to stand unassisted. Ambulates with bilaterally normal heel strike and toe off. General: Yes no CVA tenderness Back/Spine/Pelvis Back: no CVA tenderness Cervical Spine: cervical ROM normal, cervical muscular tenderness and No Cervical spine tenderness Thoracic/Lumbar Spine: thoracic and lumbar spine normal to inspection, No Thoracic/lumbar spine scar(s), Lasegue's sign positive bilateral and diffuse, pain with thoraco-lumbar ROM, paraspinal muscle tenderness, thoraco-lumbar ROM limited, No thoracic spinal tenderness and lumbar spinal tenderness at L4 and at L5 Pelvis: buttock tenderness Sacroiliac joints: bilaterally tender to palpation Extrem General: Yes capillary refill normal, Yes no clubbing, cyanosis or edema and Yes no calf tenderness Psych Appearance: grossly normal Mental Status: mental status grossly normal Speech and movement: Normal speech and movement present Affect: normal affect Attitude: cooperative Thought process: Normal thought process present Thought content: Normal thought content present, suicidality (none), no hallucinations and No Depressive thoughts present Insight: Good insight present (Psych) Judgement: Good judgement present (Psych) Results Reviewed Results Reviewed: XR CERVICAL SPINE 11/19/2019 CLINICAL INFORMATION: Neck pain status post injury. FINDINGS: There is straightening of the normal cervical lordosis with normal spinal alignment. The vertebral bodies are intact. The intervertebral disc spaces are unremarkable. The odontoid process is intact. There is no acute fracture. The prevertebral soft tissues are unremarkable. IMPRESSION: 1. Straightening of the normal cervical lordosis may be secondary to positioning and/or muscle spasm. No acute fracture or significant degenerative changes. MR LUMBAR SPINE WITHOUT AND WITH CONTRAST 03/03/2018 CLINICAL INFORMATION: Back pain. COMPARISON: MRI lumbar spine 04/13/2016. MRI lumbar spine 07/23/2013. TECHNIQUE: MRI of the lumbar spine was obtained using routine sequences with and without contrast. Intravenous contrast: Gadavist 8.5 mL FINDINGS: VERTEBRAL BODIES AND PARASPINAL STRUCTURES: 5 lumbar type vertebral bodies are identified and are normal in height, and alignment. Mild endplate discogenic marrow signal changes are present adjacent to the L5-S1 intervertebral disc. Mild paraspinous soft tissue inflammatory changes are present adjacent to the left and right L4-L5 facet joints which demonstrate moderate facet hypertrophic changes. CONUS MEDULLARIS AND CAUDA EQUINA: Normal, terminating at the level of L1-L2.. SPINAL LEVELS: T12-L1: Normal. Normal intervertebral disc. No central or foraminal stenoses. L1-L2: Normal L2-L3: Normal L3-L4: Minimal bilateral ligamentum flavum hypertrophy. L4-L5: An 11 mm diameter rounded predominantly low T1 and low T2-weighted focus is contiguous with the anterior aspect of the left L4-L5 facet joint resulting in near complete effacement of the adjacent left subarticular recess and medial displacement of the right L5 nerve roots. The L4-L5 intervertebral disc demonstrates minimal bilateral intraforaminal disc protrusions. The annulus of the disc appears intact and the intervertebral disc demonstrates normal height and normal signal intensity of the nucleus pulposus. The predominantly low signal focus described above demonstrates several areas of focal T2 hyperintensity and appears to exhibit a peripheral low signal intensity rim (axial T2 FSE series 5 image 18/27). Moderate bilateral facet hypertrophic degenerative changes are present and trace fluid is present in the left and right facet joints at L4-L5. This lesion demonstrates mild peripheral enhancement and soft tissue enhancement is noted adjacent to the left and right facet joints. L5-S1: Mild posterior broad-based disc bulge with punctate T2 hyperintensity noted in the right parasagittal of the disc bulge which may represent an annular fissure. No associated direct nerve root impingement. IMPRESSION: 1. Single 11 mm diameter lesion at the level of L4-L5 as described above resulting in direct left L5 nerve root impingement within the left L4-L5 subarticular recess. This finding is suspicious for a complex synovial cyst emanating from the anterior aspect of the left L4-L5 facet joint. The differential diagnosis includes a disc extrusion. However, the adjacent L4-L5 intervertebral disc demonstrates no disruption of the annulus or gross evidence of an associated extrusion. Furthermore, the signal intensity of this 11 mm diameter region has features suggesting a low signal peripheral rim and areas of central fluid signal intensity which favors the diagnosis of a synovial cyst. The low signal intensity within this lesion may represent areas of gas/calcification or ligamentum flavum hypertrophy associated with the synovial cyst. This lesion does not have the typical appearance of an epidural abscess given the absence of extensive adjacent epidural inflammatory changes and the predominantly low (T2-weighted) signal signal intensity of the lesion. This result was discussed with TETO CRAWFORD MD by telephone at 03/03/2018 11:17 AM and it was ascertained that the content and urgency of the report was understood at the time of direct communication. XR LUMBOSACRAL SPINE 01/04/2018 CLINICAL INFORMATION: Lower back pain COMPARISON: August 05, 2015 FINDINGS: There are 5 nonrib bearing lumbar vertebra. The bony texture and alignment satisfactory. Disc spaces are maintained. No acute fracture, spondylolisthesis, or spondylolysis identified. There is increased sclerosis seen involving the left sacroiliac joint unchanged from prior study. IMPRESSION: No significant bony abnormality of the lumbar spine identified. Stable increased sclerosis left sacroiliac joint may be related to osteitis. MR CERVICAL SPINE WITHOUT AND WITH CONTRAST MR THORACIC SPINE WITHOUT AND WITH CONTRAST 05/31/2017 CLINICAL INFORMATION: 41-year-old woman with multiple sclerosis. COMPARISON: 03/08/2017 brain MRI TECHNIQUE: MRI of the cervical and thoracic spine was obtained using routine sequences without and with contrast. Intravenous contrast: Gadavist 9 mL. FINDINGS: CERVICAL SPINE: Alignment of the cervical spine remains anatomic. Vertebral bodies are normal in height and bone marrow is normal in signal intensity on all sequences. There is mild loss of normal disc height at C4-C5. A T2 hyperintense lesion is seen in the right lateral cord at the cervicomedullary junction. A smaller focus of T2 hyperintense signal is seen within the right medial cord at C2-C3. A 5 mm lesion is noted in the right dorsal lateral cord at C5-C6. There is T2 hyperintense signal in the central ventral cord at the C6 level and in the left lateral cord at the C7 level. None of these lesions demonstrate abnormal enhancement on postcontrast sequences. Aside from a minimal soft disc bulge at C4-C5, the disc contours are normal. No significant canal or foraminal stenosis is noted at any level. THORACIC SPINE: On the sagittal images, alignment of the thoracic spine remains anatomic. Vertebral bodies are normal in height and bone marrow is normal in signal intensity on all sequences. The intervertebral discs remain normally hydrated and maintain normal volumes. No focal disc derangement is seen at any level. Facet arthrosis contributes to mild narrowing of the left T6-T7 neural foramen. The central canal and neural foramina are otherwise widely patent throughout the thoracic spine. Central canal and neural foramina are widely patent throughout the thoracic spine. There is subtle increased T2 signal in the dorsal cord on both sides of midline at the T3-T4 level. There may be subtle attenuation of normal cord diameter at this level as well. No other definite discrete T2 hyperintense foci are seen in the thoracic spinal cord. No pathologic intramedullary, leptomeningeal, or epidural enhancement is noted on postcontrast sequences. IMPRESSION: Numerous nonenhancing T2 hyperintense lesions are seen in the cervical and thoracic spinal cord, consistent with the patient's history of multiple sclerosis Assessment & Plan Assessment & Plan (1) Peripheral neuropathy: Code(s): G62.9 - Polyneuropathy, unspecified Category: Medical (2) Lumbar radiculopathy: Code(s): M54.16 - Radiculopathy, lumbar region Category: Medical (3) Multiple sclerosis: Code(s): G35 - Multiple sclerosis Category: Medical (4) Back pain: Comment: PAIN IN THE LEFT THORACIC AREA IS MOST LIKELY MUSCULAR PAIN AND NOT RELATED TO PULMONARY OR PLEURAL DISEASE. SHE IS ADVISED TO HAVE SOMEONE GIVE HER A GOOD MESSAGE TO THE BACK. MAY TAKE TOTAL IN OUR Q 6 HOURS P.R.N.. Code(s): M54.9 - Dorsalgia, unspecified Category: Medical (5) Lumbosacral spondylosis: Code(s): M47.817 - Spondylosis without myelopathy or radiculopathy, lumbosacral region Category: Medical (6) Sacroiliac joint pain: Code(s): M53.3 - Sacrococcygeal disorders, not elsewhere classified Category: Medical (7) Opioid contract exists: Code(s): Z79.891 - intermodal owner operator truck driver (current) use of opiate analgesic Category: Medical Plan Patient presented today for pill count which was short today. There is no evidence of abuse or diversion at this time. Joshua reviewed. We had a long discussion today and reviewed opioid contract at length. I will give patient one time pass today. She is aware to take medication only as prescribed as taking more than prescribed will ultimately result in opioid suspension. Patient is aware that she cannot obtain opioid medication from other providers or increase doses of current medication based on recommendation from other providers and failing to communicate with our office. Script sent for hydrocodone-acetaminophen 5-325 mg for increased dose from BID to TID prn for 30 days with advanced date of 11/17/24. Patient has Narcan at home. Neurodiagnostic studies to evaluate peripheral neuropathy in bilateral lower extremity and rule out lumbar radiculopathy. All questions were answered and the patient is in agreement with the plan. Follow up in 4 weeks for pill count and sooner as needed. Orders: Orders 2 NE nerve conduction velocity Today G62.9 - Polyneuropathy, unspecified, M54.16 - Radiculopathy, lumbar region NE electromyogram (EMG) Today G35 - Multiple sclerosis, G62.9 - Polyneuropathy, unspecified, M54.16 - Radiculopathy, lumbar region Medications: Changed 2 From hydrocodone-acetaminophen 5-325 mg Partial Fill upon patient request. 1 tab PO BID 30 days PRN 60 tabs 0RF pain (scale score 7-10) G35 - Multiple sclerosis, M47.817 - Spondylosis without myelopathy or radiculopathy, lumbosacral region, M53.3 - Sacrococcygeal disorders, not elsewhere classified, M54.9 - Dorsalgia, unspecified To hydrocodone-acetaminophen 5-325 mg Partial Fill upon patient request. 1 tab PO Q8H 30 days PRN 90 tabs 0RF pain (scale score 7-10) G35 - Multiple sclerosis, M47.817 - Spondylosis without myelopathy or radiculopathy, lumbosacral region, M53.3 - Sacrococcygeal disorders, not elsewhere classified, M54.9 - Dorsalgia, unspecified Coding Level of Care Code Est Pt Level 4 (22041) Complex EM visit Add On G2211 Diagnoses Peripheral neuropathy G62.9 Lumbar radiculopathy M54.16 Multiple sclerosis G35 Back pain M54.9 Lumbosacral spondylosis M47.817 Sacroiliac joint pain M53.3 Opioid contract exists Z79.891
[2024-11-13 11:12] VITALS: BP 129/75; PULSE 87; O2SAT 96
--- OUTSIDE RECORDS SUMMARY | 2024-11-13 13:13 | XMS_ITS | Encounter Summary ---
Author Organization [employer] Address [address] [facility] [address] [place] [address] Care Team Providers Care Property Loss Insurance Claim Adjuster Name Role Phone Lyn Lee Primary Care Provider [phone] Reason for Visit * Reason Comments Med Refill Encounter Details Date Type Department Care Team (Late st Contact Info) Description 10/26/2024 Refill [facility] [address] [place] [address] Lyn Lee ANP [address] [place] [address] Social History Tobacco Use Types Packs/Day Years [...] Care Team (Late st Contact Info) Description 2024 3:30 PM EDT Office Visit [facility] [address] [place] [address] Lyn Lee ANP [address] [place] [address] documented as of this encounter Visit Diagnoses Not on filedocumented in this encounter Care Teams Property Loss Insurance Claim Adjuster Relationship Specialty Start Date End Date Lyn Lee ANP [address] [place] [id number] PCP - General Family Medicine 05/09/21 Roberto VNA 08/19/24 documented as of this encounter
--- OUTSIDE RECORDS SUMMARY | 2024-11-13 13:13 | XMS_ITS | Clinical Summary ---
Author Organization [facility] Address [address] [place] [address] Care Team Providers Care Bevel Gear Generator Operator Name Role Phone Bradley Maddox MD Primary Care Provider [phone] Social History Tobacco Use Types Packs/Day Years Used Date Smoking Tobacco: Never Assessed Comments Unknown Sex and Gender Information Value Date Recorded Sex Assigned at Not on file Legal Sex Female 4:35 AM EST Gender Identity Not on file Sexual Orientation Not on file Plan of Treatment Health Maintenance Due Date Last Done Comments Breast Cancer Screening 1973 DTaP,Tdap,and Td Vaccines (1 - Tdap) 1992 Hepatitis B Vaccines (1 of 3 - 19+ 3-dose series) 1992 Cervical Cancer Screening: P ap Smear 1994 Pneumococcal Vaccine: 50+ Ye ars (1 of 1 - PCV) 12/23/2023 Zoster Vaccines (1 of 2) 12/23/2023 COVID-19 Vaccine ( - 2023-2 5 season) 2024 Influenza Vaccine (#1) 2024 [...] patient's age to complete this topic Meningococcal B Vacine Aged Out No lo nger eligible based on patient's age to complete [...] age to complete this topic Care Teams Bevel Gear Generator Operator Relationship Specialty Start Date End Date Bradley Maddox MD [address] [place] [id number] PCP - General Internal Medicine 11/07/18
--- OUTSIDE RECORDS SUMMARY | 2024-11-13 13:13 | XMS_ITS | Encounter Summary ---
Author Organization [facility] Address [address] [place] [address] Care Team Providers Care Interior Wirer Name Role Phone Lyn Lee Primary Care Provider [phone] Reason for Visit * Reason Onset Date Comments [facility] 08/17/2022 Encounter Details Date Type Department Care Team (Late st Contact Info) Description 08/17/[address] [facility] Central Scheduling Department [address] [place] [address] Telephone Intake, Staff [facility] Social History Tobacco [...] Team (Late st Contact Info) Description 2024 4:20 PM EDT Telehealth [facility] [address] [place] [address] Behavioral Psychologist: Stephen Muñoz MD [address] [place] [address] documented as of this encounter Visit Diagnoses Not on filedocumented in this encounter Care Teams Interior Wirer Relationship Specialty Start Date End Date Lyn Lee [address] [place] [phone] PCP - General 08/29/21 documented as of this encounter
--- OUTSIDE RECORDS SUMMARY | 2024-11-13 13:13 | XMS_ITS | Encounter Summary ---
Author Organization [employer] Address [address] [facility] [address] [place] [address] Care Team Providers Care Cash Register Mechanic Name Role Phone Lyn Lee Primary Care Provider [phone] Reason for Visit * Reason Comments Pre-visit Planning SDOH Screening posit mirella and Tobacco screening positive Encounter Details Date Type Department Care Team ([facility] st Contact Info) Description 11/11/2024 Patient Outreach [facility] [address] [place], [place] [id number] Lyn Lee ANP [address] [place] [address] Pre-visit Planning (SDOH Screening positive and Tobacco screening positive) Social History Tobacco Use Types Packs/Day Years [...] from getting things needed for daily living? Yes, it has kept me from medical appointments or getting medications. 11/11/2024 Utilities Answer Date Recorded In the past 12 months, has t he electric, gas, oil or water company threatened to shut off services in your home? No 01/22/2024 Depression Answer Date Recorded Patient Health Questionnaire-2 Score 4 08/20/2024 Internet Access Answer Date Recorded Internet Access Q1 No 11/11/2024 Internet Access Q2 I do not want or need it 10/19 Comments Unknown Sex and Gender Information Value Date Recorded Sex Assigned at Female 07/17/2022 10:17 AM EDT Legal Sex Female 10:17 AM EDT Gender Identity Choose not to disclose 10:17 AM EDT Sexual Orientation Don't know 07/17/2022 10 :17 AM EDT documented as of this encounter Progress Notes * Mayra Hernandez - 11/11/2024 10:15 AM EST CC Mayra Arango placed successful outbound call to patient for pre-visit planning. Patient name and confirmed. Patient confirms appt date and time, and has transportation arrangements. Biggest concern for appointment at this time is no concerns. Patient advised to bring to appointment a photo id and insurance card. Appropriate screenings completed in anticipation of appointment. Tobacco screening positive. Will need counseling. SDOH positive. Patient looking for assistance with Transportation.Referral will be placed. documented in this encounter Plan of Treatment Upcoming Encounters Date Type Department Care Team (Late st Contact Info) Description 2024 3:30 PM EDT Office Visit [facility] [address] [place] [address] Lyn Lee ANP [address] [place] [address] documented as of this encounter Visit Diagnoses Not on filedocumented in this encounter Care Teams Cash Register Mechanic Relationship Specialty Start Date End Date Lyn Lee ANP [address] [place] [address] PCP - General Family Medicine 05/09/21 Roberto BRASHER 08/19/24 documented as of this encounter
--- OUTSIDE RECORDS SUMMARY | 2024-11-13 13:13 | XMS_ITS | Encounter Summary ---
Author Organization [employer] Address [address] [facility] [address] [place] [address] Care Team Providers Care Pets Salesperson Name Role Phone Lyn Lee Primary Care Provider [phone] Reason for Visit * Reason Comments Med Refill Encounter Details Date Type Department Care Team (Late st Contact Info) Description 10/19/2023 Refill [facility] [address] [place] [address] Lyn Lee ANP [address] [place] [address] Social History Tobacco Use Types Packs/Day Years [...] Description 2024 3:30 PM EDT Office Visit [facility] [address] [place] [phone] Lyn Lee ANP [address] [place] [phone] documented as of this encounter Visit Diagnoses Not on filedocumented in this encounter Care Teams Pets Salesperson Relationship Specialty Start Date End Date Lyn Lee ANP [address] [place] [phone] PCP - General Family Medicine 05/09/21 Roberto VNA 08/19/24 documented as of this encounter
--- OUTSIDE RECORDS SUMMARY | 2024-11-13 13:13 | XMS_ITS | Encounter Summary ---
Author Organization [email or web address] Address [address] [place] [address] Care Team Providers Care Press Breaker Name Role Phone Lyn Lee DENI Primary Care Provider [phone] Reason for Visit * Reason Onset Date Comments DME from [facility] 10/24/2024 Encounter Details Date Type Department Care Team (Late st Contact Info) Description 10/24/2024 Telephone [facility] [address] [place] [address] Fritz Koch MA DME from [facility] Social History Tobacco Use Types Packs/Day Years [...] encounter Miscellaneous Notes * Telephone Encounter - Robert Elmore MA - 10/28/2024 10:38 AM EST Medical necessity form has been signed by PCP ad has been faxed. Sent in for scanning. * Telephone Encounter - Fritz Koch MA - 10/24/2024 2:58 PM EST Confirmation of order and DME for incontinence supplies from [facility] placed on PCP desk [facility] emergency department. documented in this encounter Plan of Treatment Upcoming Encounters Date Type Department Care Team (Late st Contact Info) Description 2024 3:30 PM EDT Office Visit [facility] [address] [place] [address] Lyn Lee ANP [address] [place] [address] documented as of this encounter Visit Diagnoses Not on filedocumented in this encounter Care Teams Press Breaker Relationship Specialty Start Date End Date Lyn Lee ANP [address] [place] [address] PCP - General Family Medicine 05/09/21 Roberto [facility] 08/19/24 documented as of this encounter
--- OUTSIDE RECORDS SUMMARY | 2024-11-13 13:13 | XMS_ITS | Encounter Summary ---
Author Organization [facility] Address [address] [place] [address] Care Team Providers Care On Site Nurse Name Role Phone Lyn Lee Primary Care Provider [phone] Reason for Visit * Reason Onset Date Comments Financial Assistance 09/09/2024 Encounter Details Date Type Department Care Team (Late Contact Info) Description 09/09/2024 Telephone [facility] [address] [address] Mona Juárez Financial Assistance Social History Tobacco [...] Helpetey, Kesimpta 20mg/0.4ml Auto-injector I Spoke with healthcare sales representative at [employer], they received prescriber page 3 of [employer] PAP Application but missing the drug strength on the form. You may refax to [phone] documented in this encounter Plan of Treatment Upcoming Encounters Date Type Department Care Team (Late st Contact Info) Description 2024 4:20 PM EDT Telehealth [facility] [address] [place] [phone] Rotary Pump Operator: Stephen Muñoz MD [address] [place] [phone] documented as of this encounter Visit Diagnoses Not on filedocumented in this encounter Care Teams On Site Nurse Relationship Specialty Start Date End Date Lyn Lee [address] [place] [id number] PCP - General 08/29/21 documented as of this encounter
--- OUTSIDE RECORDS SUMMARY | 2024-11-13 13:13 | XMS_ITS | Encounter Summary ---
Author Organization [employer] Address [address] [place] [address] Care Team Providers Care Biomedical Engineering Supervisor Name Role Phone Lyn Lee Primary Care Provider [phone] Reason for Visit * Reason Onset Date Comments Med Refill 07/24/2024 Encounter Details Date Type Department Care Team ([facility] st Contact Info) Description 07/24/[address] [facility] [address] [place] [address] Lyn Lee ANP [address] [place] [address] Med Refill Social History Tobacco Use Types [...] the past 12 months, has t he [employer] gas, oil or water company threatened to [...] pended to PCP. * Telephone Encounter - Marítn Mendoza - 07/24/2024 2:04 PM EST TC from pt requesting medication refill. Medications needing refill: cholecalciferol (Vitamin D-3) 50 MCG (1999) capsule To be sent to: [facility]/pharmacy #[id number] [place] [address] documented in this encounter Plan of Treatment Upcoming Encounters Date Type Department Care Team (Late st Contact Info) Description 2024 3:30 PM EDT Office Visit [facility] [address] [place] [address] Lyn Lee ANP [address] [place] [address] documented as of this encounter Visit Diagnoses Not on filedocumented in this encounter Care Teams Biomedical Engineering Supervisor Relationship Specialty Start Date End Date Lyn Lee ANP [address] [place] [address] PCP - General Family Medicine 05/09/21 [place] A 08/19/24 documented as of this encounter
--- OUTSIDE RECORDS SUMMARY | 2024-11-13 13:13 | XMS_ITS | Clinical Summary ---
Author Organization [facility] Address [address] [place] [address] Care Team Providers Care Security Supervisor Name Role Phone Lyn Lee Primary Care Provider [phone] Allergies Active Allergy Reactions Criticality Noted Date [...] Take 10 mg by mouth daily. 6 05/29/20 18 Active FIBER LAXATIVE, CA POLYCARBO, 625 mg tablet Take 1 tablet by mouth daily. 5 05/10/20 18 Active VITAMIN D3 2,000 unit capsule Take 2 capsules by mouth daily. 11 04/03/20 18 Active FLOVENT HFA 220 mcg/actuation inhaler INHALE 1 PUFF TWICE A DAY 0 05/14/20 18 Active omeprazole (PriLOSEC) 20 mg capsule TAKE ONE CAPSULE BY MOUTH TWICE A DAY BEFORE MEALS 5 03/27/20 18 Active cyanocobalamin 1,000 mcg tablet Take 1,000 mcg by mouth daily. Active albuterol (PROAIR HFA,VENTOLIN HFA) 90 mcg inhaler INHALE 1 OR 2 PUFFS BY MOUTH EVERY 4 TO 6 HOURS NEEDED FOR DIFFICULTY BREATHING 0 04/12/20 19 Active aspirin chewable tablet 81 mg Chew and swallow 81 mg by mouth once a day. Active atorvastatin (LIPITOR) 20 mg tablet Take 20 mg by mouth once a day. Active entecavir (BARACLUDE) 0.5 mg tablet Take 1 tablet (0.5 mg total) by mouth once a day. 30 tablet 11 3 2:47 PM EDT 05/23/20 22 Active mirtazapine (REMERON) 30 mg tabletIndicati ons:Insomnia due to medical condition Take 1 tablet (30 mg total) by mouth nightly. 30 tablet 3 07/05/20 23 Active venlafaxine XR (EFFEXOR XR) 37.5 mg capsule Take 1 capsule (37.5 mg total) by mouth once a day. 30 capsule 2 01/14/20 24 Active Banophen 25 mg capsule TOME 1 CAPSULA POR VIA ORAL TODOS LOS KIM EN LA NOCHE CUANDO SEA NECESARIO PARA DORMIR 90 capsule 2 03/04/20 24 Active ofatumumab (Kesimpta Pen) 20 mg/0.4 mL pen injectorIndica tions:MS (multiple sclerosis) (HCC) Inject 0.4 mL (20 mg total) under the skin every 28 days. 0.4 mL 11 03/12/20 24 Active Alcohol Prep Pads pads, medicated USE SEG N LO INDICADO DOS VECES AL D A 01/24/20 24 Active Laxative, bisacodyl, 5 mg EC tablet TAKE 4 TABLETS BY MOUTH AT NOON THE DAY BEFORE COLONOSCOPY 10/29/19 24 Active clotrimazole (LOTRIMIN) 1% cream APLIQUE AL JAVIER AFECTADA DOS VECES AL D A POR 28 KIM 03/03/20 24 Active fluconazole (DIFLUCAN) 150 mg tablet TOME BERNADETTE TABLETA TODOS LOS D EN LA MO ALLY POR 2 D 11/12/19 24 Active Arnuity Ellipta 200 mcg/actuation blister with device INHALE UN SOPLIDO EN LA MA ALLY 03/04/20 24 Active metFORMIN (GLUCOPHAGE) 500 mg tablet TOME BERNADETTE TABLETA (500 MG) POR V A ORAL CON EL DESAYUNO AND WITH EVENING MEAL 02/08/20 24 Active nicotine polacrilex (NICORETTE) 2 mg gum CHEW 1 PIECE OF GUM UP TO EVERY 2 HOURS NEEDED FOR SMOKING CESSATION 03/27/20 24 Active nitrofurantoin monohydrate/ma crocrystals (MACROBID) 100 mg capsule TOME 1 C PSULA POR V A ORAL DOS VECES AL D A POR 7 D 04/13/20 24 Active phenazopyridin e (PYRIDIUM) 100 mg tablet TOME 1 TABLETA POR V A ORAL JR VECES AL D A FOR PAIN POR 3 D 04/13/20 24 Active senna 8.6 mg tablet TOME DOS TABLETAS POR V A ORAL TODOS LOS D CUANDO SEA NECESARIO PARA EL ESTRE IMIENTO 03/06/20 24 Active baclofen (LIORESAL) 10 mg tabletIndicati ons:Spasticity TOME DOS TABLETAS (20 MG TOTAL) POR VIA ORAL JR VECES AL SUSIE 540 tablet 10/28/19 25 Active magnesium oxide (MAG-OX) 400 mg (241.3 mg mag) tablet Take 1 tablet (241.3 mg of elemental magnesium total) by mouth once a day. 30 tablet 1 11/11/19 25 025 Active topiramate (TOPAMAX) 50 mg tabletIndicati ons:Seizure disorder (CMS/HCC) (HCC),Anxiety and depression Take 1 tablet (50 mg total) by mouth See admin instructions. TOME BERNADETTE TABLETA POR VIA ORAL CADA MANANA 2 AL ACOSTARSE 270 tablet 1 11/11/19 25 Active levETIRAcetam (KEPPRA) 750 mg tabletIndicati ons:Seizure disorder (CMS/HCC) (HCC) Take one tab q am and 2 tabs q pm 270 tablet 5 11/11/19 25 Active amitriptyline (ELAVIL) 10 mg tabletIndicati ons:Neuropathi c pain syndrome (non-herpetic) Take 2 tablets (20 mg total) by mouth nightly. 180 tablet 11/11/19 25 025 Active baclofen (LIORESAL) 10 mg tabletIndicati ons:Spasticity Take 2 tablets (20 mg total) by mouth 3 times a day. 540 tablet 07/31/20 24 025 Discontinued Active Problems Problem Noted Date Diagnosed [...] 1. Continue to follow-up with urology in [place]. 2. Reinforced limiting caffeine and Kegel's. Psychogenic [...] 3. We will refer her to social media intern. Assessment & Plan (02/21/2021 7:08 AM EDT): [...] Encounters Date Type Department Care Team Description 10/27/2024 Telephone [facility] [address] [place] [address] Offset Press Operator Helper: Paulina Jones Telephone Intake, Staff 10/27/2024 [facility] [address] [place] [address] Sri Potts MD Spasticity 09/16/[facility] [address] [place] [address] Offset Press Operator Helper: Sri Oconnor MD Seizure disorder (CMS/HCC) ([facility]) 09/09/2024 Telephone [facility] [address] [place] [phone] Mona Juárez Financial Assistance from Last 3 Months Family History Medical [...] Info) Description 2024 4:20 PM EDT Telehealth [facility] [address] [place] [address] Offset Press Operator Helper: Stephen Muñoz MD [address] [place] [phone] Health Maintenance Due Date Last Done Comments Cervical Cancer Screening 1973 Cologuard 1973 Colonoscopy 1973 HIV Screening 1973 HPV and Pap Smear 1973 Pap Smear 1973 Sigmoidoscopy 1973 Hepatitis B Vaccines (1 of 3 - 19+ 3-dose series) 1992 Mammogram 10/17/2019 10/17/2017 CT Lung Cancer Screening (Baseline) 12/23/2023 Zoster Vaccines (1 of 2) 12/23/2023 COVID-19 Vaccine (3 - 2023-2 5 season) 2024 02/21/2021, 01/24/2021 Influenza Vaccine (#1) 2024 , 09/11/2019, 10/20/2018, Additional history exists Alcohol/Substance Use Screening 09/17/2024 Depression Evaluation 09/17/2024 Social Drivers of Health Ashwini ual Screening 09/17/2024 DTaP,Tdap,and Td Vaccines (2 - Td or Tdap) 05/17/2025 05/17/2015, 11/01/2007 Colon Cancer Screening 08/20/2025 FOBT / Fit Test 08/20/2025 08/20/2024, 12/27/2022 RSV Vaccine (60+ years old a nd patients) (1 - 1-dose 75+ series) 2048 Hepatitis C Screening Completed 05/16/2019 Pneumococcal Vaccine: 50+ Years Completed 03/27/2024, 04/12/2016, 10/07/2014 Procedures * Due to [place] [employer] law, this organization might not be sharing negative HIV tests. Procedure Name Priority Date/Time Associated Diagnosis Comments HEPATITIS PANEL, ACUTE Routine 05/16/2019 3:05 PM EDT Exposure to hepatitis B from Last 3 Months or Most Recently Relevant to Health Maintenance Results * Due to [place] law, this organization might not be sharing negative HIV tests. * Hepatitis Panel, Acute (05/16/2019 3:05 PM EDT) Hepatitis A IgM NON-REACT MARGY NON-REACT MARGY 05/17/2019 3:02 AM EDT [facility] Hepatitis B Surface Antigen NON-REACT MARGY NON-REACT MARGY 05/17/2019 3:02 AM EDT [employer] [facility] Hepatitis B Core Antibody NON-REACT MARGY NON-REACT MARGY 05/17/2019 3:02 AM EDT [employer] [facility] Hepatitis C Antibody NON-REACT MARGY NON-REACT MARGY 05/17/2019 3:02 AM EDT [employer] [facility] Signal To Cut-Off 0.02 <1.00 05/17/2019 3:02 AM EDT [employer] [facility] Comment: HCV antibody was non-reactive. There is no laboratory evidence of HCV infection. In most cases, no further action is required. However, if recent HCV exposure is suspected, a test for HCV RNA (test code 98441) is suggested. For additional information please refer to http://education.Clavister/faq/FWA11u4 (This link is being provided for informational/ educational purposes only.) Blood specimen (specimen) Structure of peripheral vein / Unknown Venipuncture / Unknown 05/16/2019 3:05 PM EDT 05/16/2019 3:29 PM EDT Narrative [facility] - 05/17/2019 3:02 AM EDT [employer] Received Date: Alejandra Sotelo DO LAB BLOOD ORDERABLES Final Re sult [facility] [address], [place] [address], [employer] [facility] [address] [facility] [address], [place] [address], from Last 3 Months or Most Recently Relevant to Health Maintenance Insurance [facility] Care Teams Security Supervisor Relationship Specialty Start Date End Date Lyn Lee [address] [place] [phone] PCP - General 08/29/21
--- OUTSIDE RECORDS SUMMARY | 2024-11-13 13:13 | XMS_ITS | Encounter Summary ---
Author Organization [facility] Address [address] [place] [address] Care Team Providers Care Steward[employer] Name Role Phone Lyn Lee Primary Care Provider [phone] Encounter Details Date Type Department Care Team (Late Contact Info) Description 10/27/2024 Telephone [facility] [address] [place] [address] [phone] Truckload Checker: Paulina Jones Telephone Intake, Staff Social History Tobacco Use Types Packs/Day Years [...] encounter Miscellaneous Notes * Telephone Encounter - Judit Miller - 10/27/2024 3:09 PM EST Patient has an appointment with Dr. Li on 11/11 at 11 am and patient is requesting to change appointment to a because of transportation. Is it ok to change appointment to ? Please advise. Thank you documented in this encounter Plan of Treatment Upcoming Encounters Date Type Department Care Team (Late st Contact Info) Description 2024 4:20 PM EDT Telehealth [facility] [address] [place] [address] Truckload Checker: Stephen Muñoz MD [address] [place] [phone] documented as of this encounter Visit Diagnoses Not on filedocumented in this encounter Care Teams [employer]ward[employer] Relationship Specialty Start Date End Date Lyn Lee [address] [place] [id number] PCP - General 08/29/21 documented as of this encounter
--- OUTSIDE RECORDS SUMMARY | 2024-11-13 13:13 | XMS_ITS | Clinical Summary ---
Author Organization [email or web address] Address [address] [facility] 7t [place] [address] Care Team Providers Care Endoscopy Tech Name Role Phone Libia Sandoval Primary Care Provider [phone] Allergies Active Allergy Reactions Criticality Noted Date [...] injection Infuse into a venous catheter. Active OneTouch Delica Lancets 33G misc Use to test blood sugar 2 times daily 100 each 11 11/12/19 24 Active Alcohol Swabs 70 % pads Use to test blood sugar 2 times daily 100 each 11 11/12/19 24 Active Blood Glucose Monitoring Suppl (ONE TOUCH ULTRA 2) w/Device kit Use to test blood sugar 2 times daily 1 kit 11/12/19 24 Active fluticasone furoate (Arnuity Ellipta) 200 MCG/ACT inhaler Inhale 1 puff in the morning. 1 each 01/01/20 24 2024 Active polycarbophil (FiberCon) 625 MG tabletIndicatio ns:Constipation , unspecified constipation type Take 1 tablet (625 mg) by mouth Once daily. 90 tablet 3 01/28/20 24 Active topiramate 50 MG tabletIndicatio ns:Seizure [...] a day 180 capsule 09/22/19 25 Active atorvastatin (Lipitor) 20 MG tablet TAKE 1 TABLET BY MOUTH EVERY DAY 90 tablet 2 10/27/19 25 Active metFORMIN (Glucophage) 500 MG tablet TAKE 1 TABLET BY MOUTH WITH BREAKFAST AND EVENING MEAL 180 tablet 11/04/19 25 Active glucose blood (MOWGLI Ultra) test strip Use to test blood sugar 2 times daily 100 each 12 11/12/19 24 2024 metFORMIN (Glucophage) 500 MG tablet Take 1 tablet (500 mg) by mouth with breakfast and with evening meal. 60 tablet 11 11/12/19 24 2024 Discontinued atorvastatin (Lipitor) 20 MG tablet TAKE 1 TABLET BY MOUTH EVERY DAY 90 tablet 2 02/26/20 24 2024 Discontinued Active Problems Problem Noted [...] Encounters Date Type Department Care Team Description 11/11/2024 Patient Outreach [facility] [address] [place] [phone] Libia Sandoval ANP Care Coordination (CHW outreach for SDOH CCA + food needs-referral completed /) 11/11/2024 Patient Outreach [facility] [address] [place] [address] Libia Sandoval ANP Pre-visit Planning (SDOH Screening positive and Tobacco screening positive) 11/02/2024 Refill [facility] [address] [place] [address] Clare Alex MD 10/26/2024 Refill [facility] [address] [place] [address] Libia Sandoval ANP 10/24/2024 Telephone [facility] [address] [place] [address] Fritz Koch MA DME from [facility] 09/26/2024 Telephone [facility] [address] [place] [address] Fritz Koch MA November09/24/2024 Telephone [facility] [address] [place] [address] Libia Sandoval ANP 09/20/2024 Refill [facility] [address] [place] [address] 60[address] Libia Sandoval ANP Central pain syndrome 09/05/2024 Refill [facility] [address] [place] [address] Libia Sandoval ANP Constipation, unspecified 08/25/2024 Refill [facility] [address] [place] [address] 41207 Nieves Rodriguez NP 08/21/2024 Telephone [facility] [address] [place] [address] 398[address] Genevieve Winslow, JASMINE Results 08/20/2024 3:30 PM EST Office Visit [facility] [address] [place] [address] Libia Sandoval ANP Impaired fasting glucose (Primary Dx); Multiple sclerosis ([facility]) 08/20/2024 Travel 08/19/[address] [phone] Aleisha Elmore MA chart prep from Last 3 Months Immunizations Name Administration [...] your housing situation today? I have shaw sing 01/22/[address] you li [...] Description 2024 3:30 PM EDT Office Visit [facility] [address] [place] [address] Libia Sandoval ANP [address] [place] [address] Health Maintenance Due Date Last Done Comments [...] Additional history exists Pap Smear 12/14/2024 12/14/2021 DTaP/Tdap/Td Vaccines (2 - Td or Tdap) 05/17/2025 05/17/2015, 11/01/2007 Depression Screening 08/20/2025 08/20/2024, 08/20/20 24 Diabetes: Hemoglobin A1C 08/20/2025 024, 08/20/2024, 04/02/2024, Additional history exists Tobacco Screening 08/20/2025 08/20/2024 SDOH Screening 11/11/2025 11/11/2024 Mammogram 11/12/2025 11/12/2023, 10/17/2017 Lipid Panel 12/21/2025 12/21/2020 Cervical Cancer Screening 12/14/2026 HPV/Cotest 12/14/2026 12/14/2021, 11/16, 07/04/2017 RSV Patients and Patients Aged 60 years or older (1 - 1-dose 75+ series) 2048 Hepatitis C Screening Completed 12/21/2020 Pneumococcal Vaccine: 50+ Years Completed 03/27/2024, 04/12/2016, 10/07/2014 HIB Vaccines Aged [...] PM EST) Hemoglobin A1c 6.2(H) <6.0 % [facility] Comment:Hemoglobin A1C Refer ence Range Adults: 4.8 - 6.0 % Non diabetic: < 6.0 % Goal: < 7.0 %Additional Action Suggested: > 8.0 %Note: Hemoglobin A1c results are invalid for patients with abnormal amounts of HbF. Blood transfusions may impact the HbA1c concentration in the patient sample. Estimated Average Glucose 131 mg/dL [facility] Comment:eAG = Estimated ave rage glucose which is %A1C expressed asaverage glucose, using the formula of the Z6R-OvngnstRteaqap Glucose study (ADAG), Diabetes Care, Vol.31,#8,2007 Blood Venous blood specimen / Unknown 08/20/2024 4:07 PM EST 08/20/2024 5:33 PM EST Result [facility] us Libia Sandoval [facility] LAB BLOOD ORDERABLES Final Resul t [facility] [address] [place] [phone] * (ABNORMAL) POCT HGB A1C (08/20/2024 3:38 PM EST) Hemoglobin A1C 6.7(A) 4.0 - 6.0 % QC Media Lot # [id number] Lot# Expiration Date 8635, Blood 08/20/2024 3:38 PM EST Result [facility] us Libia Sandoval [facility] POINT OF CARE TEST ENTER/EDIT OR DERABLES Final Result * POCT Glucose (08/20/2024 3:37 PM EST) Glucose Blood, POC 129 60 - 200 mg/dL QC Media Lot # [id number] Lot# Expiration Date [id number] Blood Capillary blood specimen / Unknown 08/20/2024 3:37 PM EST Result [facility] us Libia Sandoval ANP POINT OF CARE TEST ENTER/EDIT OR DERABLES Edited Result - Final * BI Mammogram Screening Tomosynthesis Bilateral (11/12/2023 4:24 PM EST) Anatomical Region Laterality Modality Breast Bilateral Mammography 11/12/2023 4:24 PM EST Narrative 11/28/2023 8:22 PM EDT ? [place] [facility] ? [address] ?[place] [address] ? Mammography Report ? Signed ? Patient: Chi,Jomary ?MR#: [id number] ?? 9 ? : 1975 ?Acct:[id number] ? Age/Sex: 47 / F ?ADM Date: 11/12/23 ? Loc: HO.MAMMO ? Attending Dr: Libia Sandoval CONTACT CENTER ASSISTANT ? Ordering Physician: LIBIA SANDOVAL NP ?Results: 2Benign Fin ?? dings ? Date of Service: 11/12/23 ?Follow Up: 1 Year From Orig ?? inal Mammogram ? Procedure(s): MM tomosynthesis screening BI ?? Accession Number(s): [id number] ? cc: LORI,LIBIA CAMARILLO ? EXAMINATION: ?? [...] their next mammogram. ? Dictated By: ?Jesica Scott MD ? Signed By: ?<Electronically signed by Jesica Scott MD in OV> ? 11/28/232017 ? DD/ 1624 ? TD/TT: ? Extension Agent: ? Procedure Note Nereyda, Image - 11/28/2023 [facility] [address] [place] [address] Mammography Report Signed Patient: Zachariah Chi#: [id number] 9 : 1975Acct:[id number] Age/Sex: 47 / FADM Date: 11/12/23 Loc: HO.MAMMO Attending Dr: Libia Sandoval CONTACT CENTER ASSISTANT Ordering Physician: LIBIA SANDOVALesults: 2[facility] Date of Service: 11/12/23Follow Up: 1 Year From Orig inal Mammogram Procedure(s): MM tomosynthesis screening BI Accession Number(s): [id number] cc: LIBIA SANDOVAL NP EXAMINATION: MM SCREENING [...] MD in OV> 11/28/232017 DD/ 1624 TD/TT: Extension Agent: Libia CHEEMA IMLucila BI PROCEDURES Final Result * THINPREP TIS PAP AND HPV mRNA E6/E7 WITH REFLEX TO HPV 16,18/45 (12/14/2021 11:10 AM EDT) Clinical Information: None given [employer] LAB SYSTEM COMMENT SEE COMMENT [facility] ON [...] has been evaluated with computer assisted technology. [employer] SYSTEM Pivot End Polisher: SEE COMMENT [facility] Comment: DCR, CT(ASCP) CT screening location: [address] ??[address] HPV nRNA E6/E7 Not Detected Not Detected [facility] Comment: Methodology: Escalator Mechanic-Mediated Amplification This assay detects E6/E7 viral messenger RNA (mRNA) from 14 high-risk HPV types (16,18,31,33,35,39,45,51,52,56,58,59,66,68). ? The analytical performance characteristics of this assay have been determined by [facility]. The modifications have not been cleared or approved by the FDA. This assay has been validated pursuant to the CLIA regulations and is used for clinical purposes. ?? For additional information, please refer to http://[employer]/faq/YAM898k4 (This link if provided for information/ educational purposes only.) Interpretation/Re sult: Negative for intraepithelial lesion or malignancy. [facility] LMP: 04/2020 [facility] Prev. BX: NONE GIVEN [facility] Prev. PAP: 12/03 NIL / NEG ; NIL HPV +2016 [facility] Review Pivot End Polisher: SEE COMMENT [facility] Comment: NSS, CT(ASCP) CT screening location: [address] ??[address] SOURCE: None given [facility] Statement Of Adequacy: SEE COMMENT [facility] Comment: Satisfactory for evaluation. Endocervical/transformation zone component absent. 12/14/2021 11:1 0 AM EDT [facility] PATH[facility]Y ORDERABLES Final Result [facility] [address] * HEPATITIS C AB W/REFL TO HCV RNA, QN, PCR (12/21/2020 10:56 AM EDT) HEPATITIS C ANTIBODY NON-REACT MARGY NON-REACT MARGY [facility] INDEX 0.01 <1.00 [facility] Comment: ?? HCV antibody was non-reactive. There is no laboratory ?? evidence of HCV infection. ?? In most cases, no further action is required. However, if recent HCV exposure is suspected, a test for HCV RNA (test code 11205) is suggested. ?? For additional information please refer to http://[employer]/faq/AUG33l4 (This link is being provided for informational/ educational purposes only.) ?? 12/21/2020 10:5 6 AM EDT Historical Provider MD HISTORICAL/NON ORDERABLE LABS Final Result Performing Organization Address City/[facility]/ZIP Co de Phone Number [facility] [address] * (ABNORMAL) LIPID PANEL, STANDARD (12/21/2020 [...] ?? Behzad COLUNGA et al. ADELINE. 2013;310(19): 4321-2538 ?? (http://education.[employer]/faq/KOM269) Non-HDL Cholesterol 196(H) <130 mg/dL (calc) [facility] [...] us Historical Provider LAB BLOOD ORDERABLES Jenny kohli Result Performing Organization Address [facility]/ZIP Co de Phone Number [facility] [address] from Last 3 Months or Most Recently Relevant to Health Maintenance Insurance * Guarantor: Bevelry Chi Account Type Relation to Patient Date of Phone Billing Address Personal/Family Self [address] Care Teams Endoscopy Tech Relationship Specialty Start Date End Date Libia Sandoval ANP [address] [place] [address] PCP - General Family Medicine 05/09/21 [facility] 08/19/24
--- OUTSIDE RECORDS SUMMARY | 2024-11-13 13:13 | XMS_ITS | Encounter Summary ---
Author Organization [employer] Address [address] [facility] [address] [place] [address] Care Team Providers Care Digital Content Specialist Name Role Phone Lyn Lee Primary Care Provider [phone] Reason for Visit * Reason Comments Care Coordination CHW outreach for SDO H CCA + food needs-referral completed Encounter Details Date Type Department Care Team (Latest Contact Info) Description 11/11/2024 Patient Outreach [facility] [address] [place] [address] Lyn Lee ANP [address] [place] [address] Care Coordination (CHW outreach for SDOH CCA + food needs-referral completed /) Social History Tobacco Use Types Packs/Day Years [...] as of this encounter Progress Notes * Ck De Oliveira - 11/11/2024 10:46 AM EST CHW Ck De Oliveira, placed outbound call to patient for assistance with SDOH as a referral was received by the provider. Patient's name and were confirmed. Patient screened positive for the following SDOH food insecurities. CHW referral patient to the local office of [facility] for her transportation. Patient verbalizes understanding, and able to agree with plan to follow up. Patient educated on ext ended clinic hours on Mondays through Wednesdays, and Walk-In Urgent Care Located in [facility] of [facility]. Patient provided with after-hours line for [facility], , which offer night time triage service and option to transfer to internal corrosion specialist provider if needed. documented in this encounter Plan of Treatment Upcoming Encounters Date Type Department Care Team (Late st Contact Info) Description 2024 3:30 PM EDT Office Visit [facility] [address] [place], [place] [phone] Lyn Lee ANP [address] [place] [address] documented as of this encounter Visit Diagnoses Not on filedocumented in this encounter Care Teams Digital Content Specialist Relationship Specialty Start Date End Date Lyn Lee ANP [address] [place] [address] PCP - General Family Medicine 05/09/21 [place] BRASHER 08/19/24 documented as of this encounter
--- OUTSIDE RECORDS SUMMARY | 2024-11-13 13:13 | XMS_ITS | Referral Summary ---
Author Organization [facility] Address [address] [place] [address] Care Team Providers Care Farmworker Livestock Name Role Phone Lyn Lee Primary Care Provider [phone] Encounters Date Type Department Care Team Description 10/27/2024 Telephone [facility] [address] [place] [phone] Film Loader: Paulina Jones Telephone Intake, Staff 10/27/2024 Refill [facility] Neurology Clinic [address] [place] [address] Sri Potts MD [facility] 09/16/2024 Refill [facility] [address] [place] [phone] Film Loader: Sri Oconnor MD Seizure disorder ([facility]) ([facility]) 09/09/2024 Telephone [facility] Building [address] [place] [address] Mona Juárez Financial Assistance from Last 3 Months Allergies Active Allergy [...] BERNADETTE TABLETA TODOS LOS D EN LA GENNARO ALLY POR 2 D 11/12/19 24 Active Arnuity Ellipta 200 mcg/actuation blister with device INHALE UN SOPLIDO EN LA GENNARO ALLY 03/04/20 24 Active metFORMIN (GLUCOPHAGE) 500 [...] 1. Continue to follow-up with urology in [place]. 2. Reinforced limiting caffeine and Kegel's. Psychogenic [...] MS. 3. We will refer her to health care social worker. Assessment & Plan (02/21/2021 7:08 AM EDT): [...] Info) Description 2024 4:20 PM EDT Telehealth [facility] [address] [place] [phone] Film Loader: Stephen Muñoz MD [address] [place] [phone] Procedures * Due to [place] state law, this organization might not be sharing negative HIV tests. Procedure Name Priority Date/Time Associated Diagnosis Comments HEPATITIS PANEL, ACUTE Routine 05/16/2019 3:05 PM EDT Exposure to hepatitis B from Last 3 Months or Most Recently Relevant to Health Maintenance Results * Due to [place] state law, this organization might not be sharing negative HIV tests. * Hepatitis Panel, Acute (05/16/2019 3:05 PM EDT) Hepatitis A IgM NON-REACT MARGY NON-REACT MARGY 05/17/2019 3:02 AM EDT [facility] Hepatitis B Surface Antigen NON-REACT MARGY NON-REACT MARGY 05/17/2019 3:02 AM EDT [facility] Hepatitis B Core Antibody NON-REACT MARGY NON-REACT MARGY 05/17/2019 3:02 AM EDT [facility] Hepatitis C Antibody NON-REACT MARGY NON-REACT MARGY 05/17/2019 3:02 AM EDT [facility] Signal To Cut-Off 0.02 <1.00 05/17/2019 3:02 AM EDT [facility] Comment: HCV antibody was non-reactive. There is no laboratory evidence of HCV infection. In most cases, no further action is required. However, if recent HCV exposure is suspected, a test for HCV RNA (test code 86406) is suggested. For additional information please refer to http://education.[employer]/faq/UYA46h8 (This link is being provided for informational/ educational purposes only.) Blood specimen (specimen) Structure of peripheral vein / Unknown Venipuncture / Unknown 05/16/2019 3:05 PM EDT 05/16/2019 3:29 PM EDT Narrative [facility] - 05/17/2019 3:02 AM EDT [facility] Received Date:[id number] us Alejandra Sotelo DO LAB BLOOD ORDERABLES Final Re sult [facility] [address] [facility] 3rd Floor, [place] [address], [place] [phone] [facility] [address] [facility] 3rd Floor, [place] [address], [place] [phone] from Last 3 Months or Most Recently Relevant to Health Maintenance Insurance [facility] Care Teams Farmworker Livestock Relationship Specialty Start Date End Date Lyn Lee [address] [place] [phone] PCP - General 08/29/21
--- OUTSIDE RECORDS SUMMARY | 2024-11-13 13:13 | XMS_ITS | Encounter Summary ---
Author Organization [employer] Address [address] [facility] [address] [place] [address] Care Team Providers Care Arcade Games Mechanic Name Role Phone Lyn Lee DENI Primary Care Provider [phone] Reason for Visit * Reason Comments Med Refill Encounter Details Date Type Department Care Team (Late st Contact Info) Description 11/02/2024 Refill [facility] [address] [place] [address] Clare Alex MD [address] [place] [address] Social History Tobacco Use Types Packs/Day Years [...] Description 2024 3:30 PM EDT Office Visit [facility] [address] [place] [address] Lyn Lee ANP [address] [place] [address] documented as of this encounter Visit Diagnoses Not on filedocumented in this encounter Care Teams Arcade Games Mechanic Relationship Specialty Start Date End Date Lyn Lee ANP [address] [place] [phone] PCP - General Family Medicine 05/09/21 [place] [facility] 08/19/24 documented as of this encounter
--- OUTSIDE RECORDS SUMMARY | 2024-11-13 13:13 | XMS_ITS | Encounter Summary ---
Author Organization [facility] Address [address] [place] [address] Care Team Providers Care Refinery Superintendent Name Role Phone Lyn Lee Primary Care Provider Reason for Visit * Reason Comments Med Refill Encounter Details Date Type Department Care Team (Late st Contact Info) Description 10/27/[address] [facility] [address] [place] [address] Sri Potts MD [address] [place] [address] Spasticity Social History Tobacco Use Types Packs/Day Years [...] AM EST documented as of this encounter Plan of Treatment Upcoming Encounters Date Type Department Care Team (Late st Contact Info) Description 2024 4:20 PM EDT Telehealth [facility] [address] [place] [phone] Oiler And Greaser: Stephen Muñoz MD [address] [place] [address] documented as of this encounter Visit Diagnoses Diagnosis Spasticity Abnormal involuntary movements documented in this encounter Care Teams Refinery Superintendent Relationship Specialty Start Date End Date Lyn Lee [address] [place] [phone] PCP - General 08/29/21 documented as of this encounter
--- OUTSIDE RECORDS SUMMARY | 2024-11-13 13:13 | XMS_ITS | Encounter Summary ---
Author Organization [employer] Address [address] [facility] [address] [place] [address] Care Team Providers Care Explosive Ordnance Specialist Name Role Phone Lyn Lee Primary Care Provider Encounter Details Date Type Department Care Team ([facility] st Contact Info) Description 01/25/2024 Orders Only [facility] [address] [place] [address] Lyn Lee ANP [address] [place] [address] Social History Tobacco Use Types Packs/Day Years [...] Description 2024 3:30 PM EDT Office Visit [facility] [address] [place] [address] Lyn Lee ANP [address] [place] [address] documented as of this encounter Visit Diagnoses Not on filedocumented in this encounter Care Teams Explosive Ordnance Specialist Relationship Specialty Start Date End Date Lyn Lee ANP [address] [place] [phone] PCP - General Family Medicine 05/09/21 [place] [facility] 08/19/24 documented as of this encounter
== END 2024-11-13 11:27 | disposition home or self-care (01) ==
PROVIDERS: PCP Nurse Practitioner Primary Care; Visit Provider Nurse Practitioner Family
DX: G62.9 Polyneuropathy, unspecified (principal); M54.16 Radiculopathy, lumbar region; G35 Multiple sclerosis; M54.9 Dorsalgia, unspecified; M47.817 Spondylosis without myelopathy or radiculopathy, lumbosacral region; M53.3 Sacrococcygeal disorders, not elsewhere classified; Z79.891 Long term (current) use of opiate analgesic
CPT/HCPCS: 99214; G2211

== ENCOUNTER → 2024-11-13 11:01 | Outpatient (BNVA) | payer OTHER, SELFPAY | PROVIDERS: PCP Nurse Practitioner Primary Care; Visit Provider Nurse Practitioner Family | DX: Z51.81 Encounter for therapeutic drug level monitoring (principal); G62.9 Polyneuropathy, unspecified; G35 Multiple sclerosis; M54.16 Radiculopathy, lumbar region; M54.9 Dorsalgia, unspecified; M47.817 Spondylosis without myelopathy or radiculopathy, lumbosacral region; M53.3 Sacrococcygeal disorders, not elsewhere classified; Z79.891 Long term (current) use of opiate analgesic | CPT/HCPCS: 99212 ==

== ENCOUNTER 2025-04-06 16:34 | Outpatient (REF) | payer OTHER, SELFPAY ==
[2025-04-06 17:01] LABS: Appearance Urine Clear; Glucose Urine UA Negative (Negative); PH 6.0 (5.0-9.0); Specific Gravity - Urine 1.015 (1.005-1.025); UMIC TRIGGER UA YES
[2025-04-07 02:16] LABS: CT PCR NOT DETECTED (Not Detect.); NG PCR NOT DETECTED (Not Detect.)
[2025-04-07 10:01] LABS: Bacterial Vaginosis PCR NEGATIVE (Negative); Candida Group PCR NOT DETECTED (Not Detect); Candida glab krusei PCR NOT DETECTED (Not Detect); Trichomonas vaginalis PCR NOT DETECTED (Not Detect)
== END 2025-04-06 16:35 | disposition home or self-care (01) ==
LOC: HO.HHCLNP 16:34
PROVIDERS: Visit Provider Nurse Practitioner Primary Care
DX: R30.0 Dysuria (principal)
CPT/HCPCS: 81001; 81515; 87086; 87491; 87591

== ENCOUNTER 2025-08-17 19:51 | Outpatient (REF) | payer OTHER, SELFPAY ==
--- OUTSIDE RECORDS SUMMARY | 2025-08-17 14:15 | XMS_ITS | Encounter Summary ---
Author Organization [employer] Address [address] [place] [address] [address] [place] [address] Care Team Providers Care Animal Physiologist Name Role Phone Lyn Lee Primary Care Provider [phone] Reason for Visit * Reason Comments Follow-up Encounter Details Date Type Department Care Team ([facility] st Contact Info) Description 08/17/2025 2:15 PM EST Office Visit [facility] [address] [place], [place] [id number] Lyn Lee ANP [address] [place] [address] Type 2 diabetes mellitus with hyperglycemia, without long-term current use of insulin (HCC) (Primary Dx); COPD without exacerbation (CMS/HCC) (HCC); Constipation, unspecified constipation type; Seizure disorder (CMS/HCC) (HCC); Multiple sclerosis; Hospital discharge follow-up; Essential hypertension; Central pain syndrome; COPD exacerbation (CMS/HCC) (HCC); Dietary counseling; Exercise counseling Social History Tobacco Use Types Packs/Day Years Used Date Smoking Tobacco: Every Day Cigarettes Passive Smoke Exposure: Never Smokeless Tobacco: Never Tobacco Cessation:Ready to Q uit: Not Asked; Counseling Given: Not Answered Alcohol Use Standard Drinks/Week Comments Never 0 (1 standard drink = 0.6 oz pur e alcohol) Depression Answer Date Recorded Patient Health Questionnaire-9 Score 18 08/17/2025 Patient Health Questionnaire-9 Score 18 08/17/2025 Last PHQ-9: Questionnaire Data Not on file 1 10/18/2024 Housing Stability Answer Date Recorded What is [...] Answer Date Recorded Patient Health Questionnaire-2 Score 6 08/17/2025 Internet Access Answer Date Recorded Internet Access Q1 No 11/11/2024 Internet Access Q2 I do not want or need it 10/19 Comments No Sex and Gender Information Value Date Recorded Sex Assigned at Female 07/17/2022 10:17 AM EDT Legal Sex Female 10:17 AM EDT Gender Identity Choose not to disclose 10:17 AM EDT Sexual Orientation Don't know 07/17/2022 10 :17 AM EDT documented as of this encounter Last Filed Vital Signs Vital Sign Reading Time Taken Comments Blood Pressure 110/64 08/17/2025 2:09 PM EST Pulse 71 08/17/2025 2:09 PM EST Temperature 36.1 C (96.9 F) 08/17/2025 2:09 PM EST Respiratory Rate 13 08/17/2025 2:09 PM EST Oxygen Saturation 96% 08/17/2025 2:09 PM EST Inhaled Oxygen Concentration - - Weight 71.2 kg (157 lb) 08/17/2025 2:09 PM EST Height 157.5 cm (5' 2 ) 08/17/2025 2:09 PM EST Body Mass Index 28.72 08/17/2025 2:09 PM EST documented in this encounter Functional Status * Over the past 2 weeks, how often have you been bothered by any of the following problems? Question Answer Date of Assessment Author Patient Health Questionnaire -2 Score 6 08/17/2025 2:03 PM Quan Cochran [place] * Little interest or pleasure in doing things Answer Date of Assessment Author Nearly every day 08/17/2025 2:03 PM Quan Cochran MA * Feeling down, depressed, or hopeless Answer Date of Assessment Author Nearly every day 08/17/2025 2:03 PM Quan Cochran MA * Trouble falling or staying asleep, or sleeping too much Answer Date of Assessment Author Nearly every day 08/17/2025 2:03 PM Quan Cochran [place] * Feeling tired or having little energy Answer Date of Assessment Author Nearly every day 08/17/2025 2:03 PM Quan Cochran MA * Poor appetite or overeating Answer Date of Assessment Author Nearly every day 08/17/2025 2:03 PM Quan Cochran [place] * Feeling bad about yourself - or that you are a failure or have let yourself or your family down Answer Date of Assessment Author Not at all 08/17/2025 2:03 PM Sabrina Cochran MA * Trouble concentrating on things, such as reading the newspaper or watching television Answer Date of Assessment Author Several days 08/17/2025 2:03 PM Sabrina Cochran MA * Moving or speaking so slowly that other people could have noticed? Or the opposite - being so fidgety or restless that you have been moving around a lot more than usual. Answer Date of Assessment Author More than half the days 08/17/2025 2:03 PM Quan Lozano MA * Thoughts that you would be better off or hurting yourself in some way Answer Date of Assessment Author Not at all 08/17/2025 2:03 PM Sabrina Cochran MA * Patient Health Questionnaire-9 Score Answer Date of Assessment Author 18 08/17/2025 2:03 PM Sabrina Cochran MA * Over the last 2 weeks, how often have you been bothered by any of the following problems? Question Answer Date of Assessment Author Feeling nervous, anxious, or on edge 3 08/17/2025 2:03 PM Quan Cochran MA Not being able to stop or co ntrol worrying 3 08/17/2025 2:03 PM Quan Cochran MA Worrying too much about diff erent things 3 08/17/2025 2:03 PM EST Quan Ramon MA Trouble relaxing 3 08/17/2025 2:03 PM EST Quan Castillo MA Being so restless that it is hard to sit still 3 08/17/2025 2:03 PM Quan Cochran MA Becoming easily annoyed or irritable 3 08/17/2025 2:03 PM EST Quan Ramon MA Feeling afraid as if somethi ng awful might happen 0 08/17/2025 2:03 PM Quan Cochran MA CESILIA-7 Total Score 18 08/17/2025 2:03 PM Quan Cochran MA documented as of this encounter Progress Notes * DENI Staton - 08/17/2025 2:15 PM EST SUBJECTIVE: Beverly Chi is a 49 y.o. year old adult who presents for chronic disease management. Denies recent illness, injury, or hospitalization. PMH HLD, HTN, depression, bipolar d/o, MS, anemia, GERD, smoking Follows w/ rheumatology at [facility] Follows w/ [facility] neurology for MS, neuropathic pain syndrome, seizure disorder, spasticity Acute Concerns: Recent [facility] admission for multiple concerns. The patient is a 49-year-old Greek-speaking female presenting to hospital due to left thigh painand shortness of breath. Patient had a medical history of multiple sclerosis, GERD, hypertension, seizure disorder, patient was followed by neurology in outpatient setting. Patient has been experiencing left thigh pain and worsening shortness of breath for the past few days which has been debilitating. Patient has experienced worsening proximal weakness. Patient has long history of multiple sclerosis and patient had a chronic right-sided body weakness. For the past few days patient developed a left-sided upper thigh pain and weakness and patient was unable to perform ADLs. Patient was also com plaining of worsening shortness of breath. Patient has been experiencing chills. Patient has been experiencing significant social economic stress recently due to family members' expiration. Patient denied any recent trauma to the left thigh. sprigger was utilized for this clinical visit. At the time of mission patient had WBC 25.4 hemoglobin 11.2 platelet 285. Patient had a creatinine level 0.63 with eGFR 107. Patient had sodium level 131 and potassium level 3.4. Patient had elevatedAST was 44 and ALT 68. ALP elevated to 202. patient also had elevated inflammatory markers with CRP47.2. Patient had ultrasound of lower extremity which showed no evidence of DVT. Patient had CT abdomen pelvis with IV and oral contrast which showed enlargement and apparent edema primarily involving the adductor muscles as well as a obturator internus. Diagnoses 1. COPD exacerbation (J44.1) 2. Community acquired pneumonia due to Pneumococcus (J13) 3. Tobacco use (Z72.0) 4. Myositis of thigh (M60.859) 5. Generalized anxiety disorder (F41.1) 6. Seizure disorder (G40.909) 7. Multiple sclerosis (G35) COPD exacerbation (J44.1): Patient has been experiencing worsening shortness of breath for the pastfew days patient is a tobacco user and is currently smoking about 15 cigarettes/day physical exam showed extensive wheezing; - COPD protocol -Antibiotics empirically covered with ceftriaxone and azithromycin -Trend inflammatory markers -LABA LAMA ICS -IV Solu-Medrol -Monitor vitals and temperature curve Community acquired pneumonia due to Pneumococcus (J13): Empirically covered with ceftriaxone and azithromycin; monitor vitals and temperature curve - Trend inflammatory markers Tobacco use (Z72.0): Patient smoker 15 cigarettes/day; I discussed with patient regarding the importance of smoking cessation; I spent 5 minutes to discuss with patient about smoking cessation and pertinent education was provided; I offered nicotine replacement therapy and patient refused nicotine patch; nicotine gums ordered Myositis of thigh (M60.859): Patient had acute on chronic onset of left thigh pain with no significant history of trauma; patient had normal level of CT at the time of admission however patient does have elevated inflammatory markers which could be confounded by COPD exacerbation; no obvious skin lesions however there is concern for myositis -CT scan reported enlargement and apparent edema primarily involving the abductor muscle as well asobturator internus - Patient is getting IV Solu-Medrol for COPD exacerbation as it might relieve myositis -Inflammatory markers trend -ALLY and rheumatoid factor ordered -N.p.o. at midnight for evaluation of need of muscle biopsy determined by rheumatology -Will need to reach out to rheumatology for further evaluation and assistance; day team to reach out Generalized anxiety disorder (F41.1): Continue mirtazapine; patient is not sure what medications she takes at home as PCP can assist with this; medications reconciled based on review history after discussion with pharmacist Seizure disorder (G40.369): patient has been following with neurology in outpatient setting; per chart review there was concern for seizure disorder in the past ; continue topiramate and Keppra basedon external review history - Neurology consulted for further evaluation Multiple sclerosis (G35): patient has a history of multiple sclerosis; new onset of myositis could also be secondary to progressive multiple sclerosis - Neurology consulted for further evaluation Assessment: 49-year-old obese woman with DM2, MS on Ofatumumab, seizure disorder, and PTSD presenting with left thigh pain, chills, and weakness found to have H. influenzae bacteremia with CT evidence of left adductor/obturator internus edema concerning for myositis vs muscle strain. CT LLext is suggestive of mild cellulitis involving the medial posterior aspect of the mid to distal left thigh. The patient is a 49-year-old obese woman with a history of mixed urinary incontinence, type 2 diabetes, PTSD, seizure disorder, and multiple sclerosis with right-sided weakness (on monthly Kesimpta/Ofatumumab, next dose due in early August). She presented with several days of left thigh pain, chills, worsening shortness of breath, and generalized weakness. She also reports a preceding week of diarrhea and intermittent fevers. Since admission, she has remained afebrile with stable vital signson room air. Initial labs show leukocytosis (WBC 25.4), transaminitis, and elevated inflammatory markers. Chest X-ray is unremarkable. Blood cultures from both sets drawn on 08/10 have grown Haemophilus influenzae. CT abdomen/pelvis demonstrates enlargement and edema of the left adductor muscle andobturator internus, concerning for muscle strain versus myositis. 49 year old female with DMT2, MS on Ofatumumab with right sided deficits, seizure disorder on AEDs, and anxiety presenting with left buttock pain radiating into the left thigh and weakness with concern for myositis vs MS flare and started on treatment for COPD exacerbation as SOB and wheezing. Found to have H. influenzae bacteremia on IV Ceftriaxone [address] shows mild cellulitis of the left thigh. Most likely that H. influenzae bacteremia is from left thigh soft tissue infection vs GI source. Also assessed by neurology due to history of multiple sclerosis with no evidence of active disease on MRI brain/spine. Ceftriaxone narrowed to oral antibiotic for discharge, appreciate ID recs. Discharged on levofloxacin with susceptibility testing for levofloxacin and TMP-SMX pending. As patient elects to leave before results finalize advised to follow up with PCP regarding final susceptibility with return parameters for re-evaluation given. Improving with treatment and back to her baseline functional status. At this time patient is hemodynamically stable and appropriate to discharge home. Labs remarkable for: Sed rate high at 97 mm/hr, CRP 47.2 mg/dL, alk phos 202, ALT/AST mildly elevated 68/44 High WBC TODAY: Respiratory illness with fever and hyperglycemia - July 312024: Body aches, fatigue, generalized weakness while out shopping - August 022024: Persistent weakness; severe cough with clear nasal discharge; reported lungpain; ???didn???t feel good?? - August 04, 2025: Symptoms worsened significantly; developed fever (reported 100.4??F); paramedics evaluated at home; COVID-19 and influenza tests negative; blood pressure checked; capillary glucose measured at 400 mg/dL; paramedics discussed but did not administer prednisone or antibiotics; advised likely viral illness - August 052024: Ongoing fevers and marked malaise; largely bedridden - August 08, 2025: Fever resolved; residual back and left leg pain - August 092024: Worsening pain; difficulty ambulating; nausea; visual symptoms described as???seeing little black dots?? - August 102024: Hospitalized at [facility]; reported seizure on August 12, 2025 (approximately 70 seconds) following transport for CT; told of ???bacteria in bloodstream?? ; informed potassium was low; told white blood cell count was high due to infection; inflammatory markers reportedly high; no muscle biopsy performed - Hyperglycemia during and after illness: At home decreased from 400 to ~180 mg/dL after initial call; since discharge (home since August 152024), home readings ~195-200 mg/dL and not droppingbelow 200 within several hours after meals - Metformin restarted at home on August 15, 2025 (one tablet morning, one tablet night); prior higher dose reduced due to stomach intolerance Left thigh/leg pain (possible myositis vs infection-related) - Onset during illness in mid-July 2025; severe pain with difficulty standing and walking; leftleg described as painful along with back pain - Pain improved today but continues; requests pain management support - No prior muscle biopsy while admitted; neurologist appointment scheduling in progress, also follows w/ rheumatology Seizure history and recent event - Reports requirement for seizure medication during hospitalization; states a seizure occurred August 12, 2025 (~70 seconds) after CT transport and prolonged wait - Concerns about missed seizure medication doses in hospital leading to seizure event. Has resumed home meds w/o issue. Weight loss Has lost 35 lbs since 08/20/24, pt has changed her diet completely around then to cut out soda, sugary and fatty foods, actively tried to lose weight. eating now low carb high protein diet. We discussed if she continued to lose weight with diet stabilized would recommend additional work up. Wt Readings from Last 6 Encounters: 08/17/25 157 lb (71.2 kg) 07/14/25 164 lb (74.4 kg) 04/30/25 179 lb 12.8 oz (81.6 kg) 04/06/25 185 lb (83.9 kg) 08/20/24 193 lb 6.4 oz (87.7 kg) 06/09/24 192 lb (87.1 kg) DM She would like to have insulin for PRN use, reviewed w/ her A1c 5.4 while at [facility] suggesting very good glucose control, would not recommend at this time. She has resumed metformin and if home BG do not improve as of next week will consider additional medications. Metformin dose limited by GI side effects. Notably she is not on XR formulation, could consider switch. She is very anxious about her BG - her mother in law of diabetic hypoglycemia earlier this year. Smoking cigs Daughter/LICENSED STAFF MFT provides Greek interpretation and additional history per pt preference Social History Social History Narrative Not on file Problem List[1] Surgical History[2] Family History[3] Review of Systems Constitutional: Negative for fatigue and fever. HENT: Negative for sore throat. Respiratory: Negative for cough. Cardiovascular: Negative for leg swelling. Gastrointestinal: Positive for constipation. Negative for abdominal pain and blood in stool. Musculoskeletal: Positive for arthralgias and gait problem. Negative for back pain, joint swelling and myalgias. Skin: Negative for color change. Neurological: Negative for weakness and numbness. Psychiatric/Behavioral: Positive for sleep disturbance. The patient is nervous/anxious. OBJECTIVE: Vitals: 08/17/25 1409 BP: 110/64 BP Location: Left arm Patient Position: Sitting BP Cuff Size: Adult Pulse: 71 Resp: 13 Temp: 96.9 ??F (36.1 ??C) TempSrc: Temporal SpO2: 96% Weight: 157 lb (71.2 kg) Height: 5' 2 (1.575 m) Physical Exam Constitutional: General: Beverly is not in acute distress. Appearance: Normal appearance. Beverly is not ill-appearing. HENT: Head: Normocephalic and atraumatic. Eyes: General: No scleral icterus. Extraocular Movements: Extraocular movements intact. Pupils: Pupils are equal, round, and reactive to light. Cardiovascular: Rate and Rhythm: Normal rate and regular rhythm. Pulmonary: Effort: Pulmonary effort is normal. No accessory muscle usage or respiratory distress. Breath sounds: Normal breath sounds. No wheezing. Musculoskeletal: Right lower leg: No edema. Left lower leg: No edema. Skin: General: Skin is warm and dry. Neurological: Mental Status: Beverly is alert and oriented to person, place, and time. Mental status is at baseline. Comments: Able to lift LLE to knee raise, gait slow and mildly antalgic Psychiatric: Mood and Affect: Mood normal. Behavior: Behavior normal. ASSESSMENT/PLAN Beverly was seen today for follow-up. Diagnoses and all orders for this visit: Type 2 diabetes mellitus with hyperglycemia, without long-term current use of insulin (HCC) (Primary) She has resumed metformin and if home BG do not improve as of next week will consider additional medications. Metformin dose limited by GI side effects. Notably she is not on XR formulation, could consider switch. She is very anxious about her BG - her mother in law of diabetic hypoglycemia earlier this year. COPD without exacerbation (CMS/HCC) (HCC) Lungs CTAB today Refilled albuterol Consider need for PFTs, none recent to my knowledge Constipation, unspecified constipation type Chronic. Miralax and fibercon not effective. Cont senna, magnesium. Add: - psyllium (Metamucil Smooth Texture) 58.6 % powder; 1 tsp once daily in 8 oz water Seizure disorder (CMS/HCC) (HCC) Has resumed meds and denies recurrence of seizure Multiple sclerosis Did agree to take over Rx for hydrocodone-APAP 5-325- pt reports using medication sparingly in pastbut was discharged from pain mgmt d/t contract violation which I confirmed w/ reading pain mgmt note. She was taking meds as directed by one of her specialists even though were Rx'd by a difference pr [facility]. Pt smokes THC daily. No other substances used. - HYDROcodone-acetaminophen ([place]) 5-325 MG tablet; Take 1 tablet by mouth every 8 (eight) hours if needed for moderate pain. Hospital discharge follow-up Recent discharge for septicemia and possible myositis. I will outreach pt's neurology team to let them know and inquire about consideration for muscle biopsy. Will ask pharmacy to outreach for medication reconciliation etc. Stopped amlodipine. She will cont antibiotics as rx'd from hospital. Essential hypertension Amlodipine stopped. Check home BP, let us know if BP elevated regularly > 130/90. - Blood Pressure kit; 1 each 2 times daily. Dietary and exercise counseling Recommend: Daily exercise at least 30min, moderate intensity, incorporating both cardiovascular exercise and weight training. Adequate protein intake, Recommended at least 20 g per meal of protein to assist with satiety. Cont to avoid soda and sugary beverage consumption. Central pain syndrome - HYDROcodone-acetaminophen ([place]) 5-325 MG tablet; Take 1 tablet by mouth every 8 (eight) hours if needed for moderate pain. This note was drafted using Ambient (AI) technology. The patient/patient's guardian has been informed and has consented to the use of this technology: Yes Based on our discussion, I have outlined the following instructions for you: - Take metformin: 1 tablet in the morning and 1 tablet at night. - Check your blood sugar at home regularly. - If your blood sugar stays high, your treatment may be changed in the future. - Set up your gumi online account so you can communicate easily. - message us next Sunday to check in about your blood sugar readings. - Watch your breathing and let your healthcare team know if you notice any changes. - Start taking psyllium (sugar-free): mix 1 teaspoon in 8 ounces of water and drink it once a day. You can adjust the amount if you have any stomach discomfort. - Stop taking your fiber tablet. - Take your antiepileptic medication exactly as prescribed, without missing any doses. - Keep your follow-up with neurology as planned. - If your neurologist or sports teacher recommends a muscle biopsy, consider having it done. - Watch for any new nerve or muscle symptoms and let your healthcare team know if you notice anything new. - The pharmacy will call you to review your medications. - You will have blood tests, including a fasting cholesterol test. - You will have a urine test to check your kidney function. (Today done) - Keep track of your weight. If you lose more weight, let your healthcare team know. - Stop taking amlodipine. - Check your blood pressure at home. You have a prescription for a blood pressure cuff. - Take hydrocodone as needed for pain (up to 28 tablets as prescribed). - Meet with the controlled substances nurse and sign the required contract. - Continue taking duloxetine twice a day. Next appointment(s): - Neurology follow-up at [facility] to coincide with skin biopsy (appointment pending confirmation by neurologist???s office) - Rheumatology consultation (appointment to be scheduled) - Mammogram as scheduled Thank you again for your visit, and we look forward to supporting you in your journey to better health. Follow Up: 6 weeks Medications Ordered Prior to Encounter[4] [1] Patient Active Problem List Diagnosis Allergic rhinitis Anxiety Asthma Central pain syndrome Constipation Gastroesophageal reflux disease Iron deficiency anemia Left flank pain Neck sprain Multiple sclerosis Obesity Posttraumatic stress disorder Seizure disorder (CMS/HCC) (HCC) Synovial cyst of lumbar spine Tobacco dependence syndrome Family history of neoplasm of breast Urinary incontinence in female Spasticity Neuropathic pain Cough in adult patient COPD without exacerbation (CMS/HCC) (HCC) Type 2 diabetes mellitus with hyperglycemia, without long-term current use of insulin (HCC) History of hepatitis B virus infection conferring immunity [2] History reviewed. No pertinent surgical history. [3] Family History Problem Relation Name Age of Onset Alzheimer's disease Mother Alzheimer's disease Brother 55 [4] Current Outpatient Medications on File Prior to Visit Medication Sig Dispense Refill albuterol (2.5 MG/3ML) 0.083% nebulizer solution Take 3 mL (2.5 mg) by nebulization every 6 (six) hours if needed for wheezing. 90 mL 0 albuterol 108 (90 Base) MCG/ACT inhaler Inhale 2 puffs every 6 (six) hours if needed for wheezing. 18 g 2 Alcohol Swabs 70 % pads Use to test blood sugar 2 times daily 100 each 11 amitriptyline (Elavil) 10 MG tablet Take 1 tablet (10 mg) by mouth at bedtime. 90 tablet 0 aspirin (Aspirin Low Dose) 81 MG EC tablet TAKE 1 TABLET BY MOUTH EVERY DAY 90 tablet 1 atorvastatin (Lipitor) 20 MG tablet TAKE 1 TABLET BY MOUTH EVERY DAY 90 tablet 2 Blood Glucose Monitoring Suppl (ONE TOUCH ULTRA 2) w/Device kit USE TO TEST BLOOD SUGAR 2 TIMES DAILY 1 kit 0 cetirizine (ZyrTEC) 10 MG tablet TOME 1 TABLETA POR VIA ORAL TODOS LOS KIM 90 tablet 0 cholecalciferol VITAMIN D (Vitamin D-3) 50 MCG (2000 UT) capsule TOME 1 CAPSULA POR VIA ORAL TODOS LOS [facility]KM EN LA [facility] 90 capsule 1 DULoxetine (Cymbalta) [address] capsule TAKE 1 CAPSULE BY MOUTH TWICE A DAY 180 capsule 0 entecavir (Baraclude) 0.5 MG tablet fluticasone furoate (Arnuity Ellipta) 200 MCG/ACT inhaler Inhale 1 puff in the morning. 1 each 11 glucose blood (OneTouch Ultra) test strip Use to test blood sugar 3 times daily 100 each 12 levETIRAcetam (Keppra) 750 MG tablet 1 tab by mouth in AM and 2 tabs in evening 90 tablet 2 metFORMIN (Glucophage) 500 MG tablet TAKE 2 TABLET(s) BY MOUTH WITH BREAKFAST AND EVENING MEAL 360 tablet 1 mirtazapine (Remeron) 30 MG tablet TAKE 1 TABLET BY MOUTH AT BEDTIME 90 tablet 1 naloxone (Narcan) 4 mg/0.1 mL nasal spray PLEASE SEE ATTACHED FOR DETAILED DIRECTIONS nicotine (Nicoderm, Step 2) 14 MG/24HR patch Place 1 patch on the skin 1 (one) time each day. nicotine polacrilex (Nicorette) 2 MG gum Chew 1 each (2 mg) if needed for smoking cessation. Up to every 2 hours 100 each 11 ofatumumab (Arzerra) 100 MG/5ML chemo injection Infuse into a venous catheter. omeprazole (PriLOSEC) [address] capsule TOME 1 CAPSULA POR VIA ORAL DOS VECES AL SUSIE BEFORE MEALS 180 capsule 1 OneTouch UltraSoft 2 Lancets misc 1 each 3 times daily. 100 each 11 sennosides (Senna-Time) 8.6 MG tablet TAKE 2 TABLETS BY MOUTH EVERY DAY IF NEEDED FOR CONSTIPATION 180 tablet 1 topiramate 50 MG tablet TOME BERNADETTE TABLETA CADA MANANA Y 2 AL ACOSTARSE 270 tablet 1 [DISCONTINUED] amLODIPine (Norvasc) 10 MG tablet TOME 1 TABLETA POR VIA ORAL TODOS LOS KIM 90 tablet 1 [DISCONTINUED] HYDROcodone-acetaminophen (Nesconset) 5-325 MG tablet Take 1 tablet by mouth every 8 (eight) hours if needed for moderate pain. [DISCONTINUED] polycarbophil ([employer] Fiber Laxative) 625 MG tablet TAKE 1 TABLET BY MOUTH EVERY DAY 90tablet 3 [DISCONTINUED] polyethylene glycol, PEG, 3350 (GaviLAX) 17 GM/SCOOP powder USE 17G ONCE DAILY NEEDED FOR CONSTIPATION, MAY INCREASE TO TWICE DAILY IF NEEDED 510 g 1 No current facility-administered medications on file prior to visit. documented in this encounter Plan of Treatment Upcoming Encounters Date Type Department Care Team (Late st Contact Info) Description 09/25/2025 11:15 AM EST Office Visit [facility] MED[facility] [address] [place] [phone] Betsy Lee MD [address] [place] [phone] 10/19/2025 11:00 AM EST Office Visit [facility] [address] [place] [phone] Lyn Lee ANP [address] [place] [phone] documented as of this encounter Goals Goal Patient Goal Type Associated Problems Recent Progress Patient-Stated? Author Help patients manage their type 2 diabetes Care Plan Help patients manage their type 2 diabetes No Divya Wood OD Weekly blood pressure task Care Plan Weekly blood pressure task Divya Grigsby OD Help patients manage their type 2 diabetes Care Plan Help patients manage their type 2 diabetes No Divya Wood, OD Patient has chronic kidney disease Care Plan Patient has chronic kidney disease No Divya Wood OD Weekly blood pressure task Care Plan Weekly blood pressure task No Divya Wood, OD Patient has chronic kidney disease Care Plan Patient has chronic kidney disease No Divya Wood OD Weekly blood pressure task Care Plan Weekly blood pressure task No Avila Russell Weekly blood pressure task Care Plan Weekly blood pressure task No Avila Russell Patient has chronic kidney disease Care Plan Patient has chronic kidney disease No Avila Russell Patient has chronic kidney disease Care Plan Patient has chronic kidney disease No Avila Russell Weekly blood pressure task Care Plan Weekly blood pressure task No Mayra Cruz MA Weekly blood pressure task Care Plan Weekly blood pressure task No Mayra Cruz MA Patient has chronic kidney disease Care Plan Patient has chronic kidney disease No Mayra Cruz MA Patient has chronic kidney disease Care Plan Patient has chronic kidney disease No Mayra Cruz MA Weekly blood pressure task Care Plan Weekly blood pressure task No Mayra Cruz MA Weekly blood pressure task Care Plan Weekly blood pressure task No Mayra Cruz MA Patient has chronic kidney disease Care Plan Patient has chronic kidney disease No Mayra Cruz MA Patient has chronic kidney disease Care Plan Patient has chronic kidney disease No Mayra Cruz MA documented as of this encounter Visit Diagnoses Diagnosis Type 2 diabetes mellitus with hyperglycemia, without long-term current use of insulin (HCC)- Primary COPD without exacerbation ([facility]) ([facility]) Constipation, unspecified constipation type Seizure disorder ([facility]) ([facility]) Unspecified epilepsy without mention of intractable epilepsy Multiple sclerosis Hospital discharge follow-up Other follow-up examination Essential hypertension Unspecified essential hypertension Central pain syndrome COPD exacerbation ([facility]) ([facility]) Obstructive chronic bronchitis with exacerbation Dietary counseling Dietary surveillance and counseling Exercise counseling documented in this encounter Additional Health Concerns Active Problems Noted Date Diagnosed Date Help patients manage their type 2 diabetes 08/03 Weekly blood pressure task 08/03/2025 Help patients manage their type 2 diabetes 08/03 Patient has chronic kidney disease 08/03/2025 Weekly blood pressure task 08/03/2025 Patient has chronic kidney disease 08/03/2025 Weekly blood pressure task 08/06/2025 Weekly blood pressure task 08/06/2025 Patient has chronic kidney disease 08/06/2025 Patient has chronic kidney disease 08/06/2025 Weekly blood pressure task 08/12/2025 Weekly blood pressure task 08/12/2025 Patient has chronic kidney disease 08/12/2025 Patient has chronic kidney disease 08/12/2025 Weekly blood pressure task 08/12/2025 Weekly blood pressure task 08/12/2025 Patient has chronic kidney disease 08/12/2025 Patient has chronic kidney disease 08/12/2025 Assessment Noted Time PHQ-9 Depression Total Score: 18 025 2:03 PM EST documented as of this encounter Care Teams Animal Physiologist Relationship Specialty Start Date End Date Lyn Lee ANP [address] [place] [address] PCP - General Family Medicine 05/09/21 Roberto BRASHER 08/19/24 documented as of this encounter
--- OUTSIDE RECORDS SUMMARY | 2025-08-17 19:54 | XMS_ITS | Encounter Summary ---
Author Organization [employer] Address [address] [facility] [address] [place] [address] Care Team Providers Care Surgical Services Tech Name Role Phone Lyn Lee Primary Care Provider [phone] Encounter Details Date Type Department Care Team (Late st Contact Info) Description 03/19/2025 Orders Only [facility] MED[facility]INE [address] [place] [address] Lyn Lee ANP [address] [place] [address] Type 2 diabetes mellitus with hyperglycemia, without long-term current use of insulin ([facility]) (Primary Dx) Social History Tobacco Use Types Packs/Day Years [...] Description 09/25/2025 11:15 AM EST Office Visit [facility] MED[facility]INE [address] [place] [phone] Betsy Lee MD [address] [place] [address] 10/19/2025 11:00 AM EST Office Visit [address] [address] Lny Lee ANP [address] [place] [phone] documented as of this encounter Visit Diagnoses Diagnosis Type 2 diabetes mellitus with hyperglycemia, without long-term current use of insulin (HCC)- Primary documented in this encounter Care Teams Surgical Services Tech Relationship Specialty Start Date End Date Lyn Lee ANP [address] [place] [phone] PCP - General Family Medicine 05/09/21 Roberto BRASHER 08/19/24 documented as of this encounter
--- OUTSIDE RECORDS SUMMARY | 2025-08-17 19:54 | XMS_ITS | Encounter Summary ---
Author Organization [employer] Address [address] [facility] [address] [place] [address] Care Team Providers Care Inspector Crystal Name Role Phone Lyn Lee Primary Care Provider [phone] Reason for Visit * Reason Onset Date Comments chartprep 08/12/2025 Encounter Details Date Type Department Care Team ([facility] st Contact Info) Description 08/12/2025 Telephone [facility] MEDICINE [address] [place] [address] Lyn Lee ANP [address] [place] [address] chartprep Social History Tobacco Use Types Packs/Day Years [...] encounter Miscellaneous Notes * Telephone Encounter - Mayra Cruz MA - 08/12/2025 1:17 PM EST ..Chart Prep Labs: Not done Images: not done Vaccines due: Covid Due, RSV in Pharmacy Due, and Shingles in pharmacy Due Referrals: Women's health Pending appointment on 08/25/25 at 11:30am Screenings: Colonoscopy , Foot Exam, and HIV screening Overdue care gaps: PHQ9 and GAD7 documented in this encounter Plan of Treatment Upcoming Encounters Date Type Department Care Team (Late st Contact Info) Description 09/25/2025 11:15 AM EST Office Visit [facility] MED[facility]INE [address] [place] [phone] Betsy Lee MD [address] [place] [address] 10/19/2025 11:00 AM EST Office Visit [facility] [address] [place] [phone] Lyn Lee ANP [address] [place] [address] documented as of this encounter Goals Goal Patient Goal Type Associated Problems Recent Progress Patient-Stated? Author Help patients manage their type 2 diabetes Care Plan Help patients manage their type 2 diabetes No Divya Wood OD Weekly blood pressure task Care Plan Weekly blood pressure task No Divya Wood, KRISTEN Help patients manage their type 2 diabetes Care Plan Help patients manage their type 2 diabetes No Divya Wood OD Patient has chronic kidney disease Care Plan Patient has chronic kidney disease No Divya Wood OD Weekly blood pressure task Care Plan Weekly blood pressure task No Divya Wood OD Patient has chronic kidney disease Care [...] Diagnoses Not on filedocumented in this encounter Additional Health Concerns Active [...] 08/12/2025 Patient has chronic kidney disease 08/12/2025 documented as of this encounter Care Teams Inspector Crystal Relationship Specialty Start Date End Date Lyn Lee ANP [address] [place] [address] [place] [address] PCP - General Family Medicine 05/09/21 Roberto Papi 08/19/24 documented as of this encounter
--- OUTSIDE RECORDS SUMMARY | 2025-08-17 19:54 | XMS_ITS | Encounter Summary ---
Author Organization [employer] Address [address] [facility] [address] [place] [address] Care Team Providers Care Agent T[employer] Name Role Phone Lyn Lee Primary Care Provider [phone] Reason for Visit * Reason Comments Med Refill Encounter Details Date Type Department Care Team (Late st Contact Info) Description 10/19/2023 Refill [facility] MED[facility]INE [address] [place] [address] Lyn Lee ANP [address] [place] [address] Social History Tobacco Use Types Packs/Day Years [...] Description 09/25/2025 11:15 AM EST Office Visit [address] [address] Betsy Lee MD [address] [place] [address] 10/19/2025 11:00 AM EST Office Visit [address] [address] Lyn Lee ANP [address] [place] [address] documented as of this encounter Visit Diagnoses Not on filedocumented in this encounter Care Teams Agent [employer] Relationship Specialty Start Date End Date Lyn Lee ANP [address] [place] [phone] PCP - General Family Medicine 05/09/21 Roberto JAUREGUIA 08/19/24 documented as of this encounter
--- OUTSIDE RECORDS SUMMARY | 2025-08-17 19:54 | XMS_ITS | Continuity of Care Document ---
Author Organization [facility] [employer] [facility] Address [address] [place] [address] Care Team Providers Care Microsoft Exchange Architect Name Role Phone HIM CCA OTHER Assessment No assessment recorded. Plan of Treatment Reminders Order Date Submit Date Provider Last Modified By Organization Details Last Modified Time Details Appointments None recorded. Lab rapid SARS CoV 2 Ag, QL IA, respirator y specimen 2024 [facility], [address] [place] [address], [id number] 5 22:07:00 rapid flu (A+B) 2024 [facility], [address] [place] [address], [id number] 5 22:03:58 Referral None recorded. Procedures None recorded. Surgeries None recorded. Imaging None recorded. Medication Orders albuterol sulfate HFA 90 mcg/actuat ion aerosol inhaler 2024 025 ATHENAFAX [facility]armacy #[id number], [address] [place], [address], 5 17:20:19 ondansetro n 4 mg disintegra ting tablet 2024 025 [email or web address] [facility]/Pharmacy #[id number], [address] [place], [address], 5 17:10:43 Patient TargetsNo targets recorded. Patient InstructionsNo instructions recorded. Reason for Referral None Reported. Results Created Date Observation Date Name Description Value Unit Range Abnormal Flag Note LastModifiedBy Organization Detail LastModifiedTime Result Notes None recorded. Medical Equipment None Reported. Allergies Allergen ID Allergen Name Allergen Category Reaction Reaction Severity Criticality Documentation Date Start Date Code Code System Note Provider Name and Address Organization Details Recorded Time Product containin g penicilli n (product) medicatio n Not available Not available Not available 08/05/2025 12917 8001 SNOMED Not Available [facility] - production 5 10:18:24 gabapenti n medicatio n Not available Not available Not available 08/05/2025 16744 RxNorm Not Available [facility] - production 10:18:24 dimethyl fumarate medicatio n angioedem a Not available [facility] 08/05/20252017 29398 78 RxNorm Repor ts havin g slow onset throa t swell ing, took for 4 month s total Not Available [employer] - External Data Service - prod 17:09:13 Medications Name Sig Start Date Stop Date Status Note LastModified by Organization Details LastModified Time metformin 500 mg tablet TAKE 2 TABLET(S) BY MOUTH WITH BREAKFAST AND EVENING MEAL active Not Available Not Available No t Available atorvastatin 20 mg tablet TOME 1 TABLETA POR V A ORAL TODOS LOS D active Not Available Not Available No t Available cetirizine 10 mg tablet TOME 1 TABLETA POR VIA ORAL TODOS LOS KIM active Not Available Not Available No t Available hydrocodone 5 mg-acetamino phen 325 mg tablet 1 TAB ORALLY EVERY 8 HOURS NEEDED FOR PAIN (SCALE SCORE 7-10) FOR 30 DAYS active Not Available Not Available Not Available senna 8.6 mg tablet TAKE 2 TABLETS BY MOUTH EVERY DAY IF NEEDED FOR CONSTIPATIO N active Not Available Not Available No t Available Fiber Laxative (calcium polycarbophi l) 625 mg tablet TOME 1 TABLETA POR V A ORAL TODOS LOS D active Not Available Not Available No t Available omeprazole 40 mg capsule,nain yed release TOME 1 CAPSULA POR VIA ORAL DOS VECES AL SUSIE BEFORE MEALS active Not Available Not Available No t Available aspirin 81 mg tablet,delay ed release TOME 1 TABLETA POR V A ORAL TODOS LOS D active Not Available Not Available No t Available magnesium oxide 400 mg (241.3 mg magnesium) tablet TOME 1 TABLETA POR V A ORAL TODOS LOS D EN LA NOCHE active Not Available Not Available No t Available OneTouch Ultra Test strips USE TO TEST BLOOD SUGAR 3 TIMES DAILY active Not Available Not Available No t Available amitriptylin e 10 mg tablet TOME DOS TABLETAS POR V A ORAL NIGHTLY active Not Available Not Available No t Available baclofen 10 mg tablet TOME DOS TABLETAS (20 MG TOTAL) POR V A ORAL JR VECES AL D A active Not Available Not Available No t Available amlodipine 10 mg tablet TOME 1 TABLETA POR V A ORAL TODOS LOS D active Not Available Not Available No t Available mirtazapine 30 mg tablet TOME 1 TABLETA POR V A ORAL TODOS LOS D AL ACOSTARSE active Not Available Not Available No t Available omeprazole 20 mg capsule,nain yed release TOME 1 C PSULA POR V A ORAL DOS VECES AL D A BEFORE MEALS active Not Available Not Available No t Available levetiraceta m 750 mg tablet TOME BERNADETTE TABLETA POR V A ORAL CADA MA ALLY & DOS TABLETAS POR V A ORAL CADA NOCHE active Not Available Not Available No t Available albuterol sulfate HFA 90 mcg/actuatio n aerosol inhaler Inhale 2 puffs every 4 hours by inhalation route as needed. 2024 active Not Available Not Available Not Avai lable Alcohol Prep Pads USE TO TEST BLOOD SUGAR 2 TIMES DAILY active Not Available Not Available No t Available topiramate 50 mg tablet TOME BERNADETTE TABLETA POR VIA ORAL CADA MANANA 2 AL ACOSTARSE active Not Available Not Available No t Available duloxetine 20 mg capsule,nain yed release TOME 1 C PSULA POR V A ORAL DOS VECES AL D A active Not Available Not Available No t Available cholecalcife rol (vitamin D3) 50 mcg (2,000 unit) capsule TOME 1 C PSULA POR V A ORAL TODOS LOS D EN LA MA ALLY active Not Available Not Available No t Available Gavilax 17 gram/dose oral powder USE 17G ONCE DAILY NEEDED FOR CONSTIPATIO N, MAY INCREASE TO TWICE DAILY IF NEEDED active Not Available Not Available No t Available Trulicity 1.5 mg/0.5 mL subcutaneous pen injector INJECT 1.5 MG UNDER THE SKIN 1 (ONE) TIME PER WEEK. active Not Available Not Available No t Available Trulicity 0.75 mg/0.5 mL subcutaneous pen injector INJECT 1 PEN (0.75 MG) UNDER THE SKIN ONCE WEEKLY active Not Available Not Available Not Available naloxone 4 mg/actuation nasal spray PLEASE SEE ATTACHED FOR DETAILED DIRECTIONS active Not Available Not Available N ot Available OneTouch Ultra2 Meter USE TO TEST BLOOD SUGAR 2 TIMES DAILY active Not Available Not Available No t Available OneTouch UltraSoft 2 Lancet 30 gauge USE TO TEST 3 TIMES DAILY active Not Available Not Available No t Available Vitals Date Recorded Body temperature Body weight Heart rate Respiratory rate Body height Oxygen saturation Systolic And Diastolic Provider Name and Address Organization Details Last Updated DateTime 5 100.4 [degF] 59395.9 44 g 115 /min 20 /min 157.48 cm 98 % 116/73 mm[Hg] Not Available [facility] - production 5 17:08:54 Social History None recorded. Functional Status None recorded. Mental Status None recorded. Family History Nothing Reported. Medical History No medical history recorded. Gynecological HistoryNo gynecological history recorded. Obstetrics History GPAL:G 0 P 0 0 0 0 Past Encounters Encounter ID Performer Location Encounter Start Date Encounter Closed Date Diagnosis/Indication Diagnosis SNOMED-CT Code Diagnosis ICD10 Code Diagnosis IMO Codes Diagnosis Note [id number] Bailey Mujica MD [facility] ED Medical [facility] [address] [place] [address] 08/05/2025 17:08:50 08/06/2025 14:13:58 Viral upper respiratory tract infection 674376524 J06.9 [id number] 49 year old female being evaluated for 5 days of flu-like illness. Patient with cough, nasal congestion , malaise, body aches, nausea and reduced appetite. Patient denies vomiting, diarrhea or urinary symptoms. She is taking some PO but not as much. Exam notable for HR 115, with otherwise normal vital signs, lungs with scattered rhonchi, abdomen soft and non-tender . POC flu and COVID are negative. Presentati on consistent with viral URI with reduced PO intake and mild dehydratio n. Zofran given, offered IV fluids however patient declined this, will attempt to take more PO. Continue supportive care and FU as needed. I have reviewed and agree with the assessment and plan as documented by the rn gastroenterology. I provided real-time medical direction for this encounter and was immediatel y available to provide additional phone-base d assistance as needed. We discussed the diagnostic uncertaint y of home visits and associated risks. We discussed the need to seek care urgently/e mergently in the setting of any new or worsening symptoms. Health Concerns Section Related Observation LastModified by Organization Detai ls LastModified Time None Recorded Concern Status LastModified by Organization Details LastModified Time None Recorded Payers Encounter Date Sequence Insurance Name Policy Number Policy Francis Covered Member ID Francis Member ID Guarantor Name 08/05/2025 1 [facility] - DOS ON OR AFTER 2022 - DUAL ELIGIBLE - PENITENTIARY OPTIONS AND ONE CARE (MEDICARE REPLACEMENT/ADV ANTAGE - HMO) Beverly Chi [id number] Beverly Chi Notes Date Note Type Note Provider Name and Address Organization Details Recorded Time 08/05/2025 text/html CRC Nurse Triage Notes (Dianelys Card): Reason For Request: Cold sweats, stomach pain, Alert. Patient Reports: History of asthma, increased use of inhaler; Cough; Shortness of breath with exertion Denies: Increased work of breathing/labored with or without fever Unable to speak in full sentences without distress Discoloration of skin -cyanosis Needs to sleep sitting up, can t catch breath Shortness of breath in setting of confusion Cough, fever greater than 2 days Lower extremity swelling COPD COVID Exposure Sputum increase Pain with inspiration Chief Complaints: Abdominal Pain, Breathing Problems PMH: Asthma, Diabetes Mellitus Type 2 PMH Reviewed at 08/05/2025 - 10:18 (ET) Allergies Reviewed at 08/05/2025 - 10:18 (ET) Comments: 49 y.o female complains of Abdominal Pain, Breathing Problems Daughter in law making referral Patient symptoms started last evening. hx of MS, Asthma, DM2 Patient has been having cold sweats, unsure of fever- no thermometer- daughter in law states she feel warm. endorses chills and headache, body aches Patient denies any nausea/vomiting/ no loose stool LBM was 2 days ago. endorses nasal congestion, endorses some shortness of breath and some wheezing. dry cough She has been using her inhalers- with little relief. no known sick contacts. denies any kidney issues and she is currently not on any blood thinners. requesting insted assessment. I provided information on the mobile health provider response time and advised the patient and/or caregiver to monitor reported signs and symptoms. I discussed the warning signs of when to seek emergency care. [employer] Organization Information for Nicole Crawford Business Legal Name: [employer]. Address: [address] [place] [address], Management Trainer: Alexander ESPITIA No.: [id number] [employer] POC Test Results from Nicole Crawford Rapid COVID antigen (16:22:51) COVID: - Rapid influenza antigen (16:22:52) Flu: - .................... .................... .................... .................... .................... .................... .................... . [employer] Note From Nicole Crawford: Sent to a call for a pt complaining of URI symptoms. SC8 arrives on scene, pt is alert and oriented, airway is patent. Pt complains of body pain and fatigue since Tuesday 07/31, and the following symptoms: headache, dizziness (not positional), runny nose w/clear mucus, productive cough w/yellow phlegm, bilateral lung pain , sob, nausea, diffuse abd pain since last night. Pt denies sore throat, vomiting, diarrhea, black/bloody stool or loc. Pt ran out of albuterol inhaler and has been using family member's. (sitting) BP:116/73, P:115, RR:20, SpO2:97% RA, T:100.4; (standing) BP:112/73, P:121; Head: unremarkable; Lung sounds: rhonchi bilaterally in upper lobes; Abdomen: soft, non-tender, no distention; Back: unremarkable; Extremities: unremarkable; Skin: pink, warm, dry; Rapid covid/flu test: neg; [facility] consulted and pt is offered IV Zofran/IV fluids. Pt declines and prefers to continue hydrating via oral fluids and Zofran ODT 4mg. [facility] orders Zofran ODT 4mg. 5 med rights verified; Zofran ODT 4mg administered; Pt advised to follow up with [facility] if needed. Red flags discussed. Pt has no further questions. [facility] Lab Orders: rapid SARS CoV 2 Ag, QL IA, respiratory specimen: Performed rapid flu (A+B): Performed [facility] Medication Orders: ondansetron 4 mg disintegrating tablet: Administered .................... .................... .................... .................... .................... .................... .................... . [facility] Consulted: Bailey Mujica .................... .................... .................... .................... .................... .................... .................... . Disposition: Fulfilled Bailey Mujica MD [address] [facility],[address] [facility], [place], [address], [employer] 08/05/2025 22:27:29 OBGyn Episode No OBEpisode recorded.
--- OUTSIDE RECORDS SUMMARY | 2025-08-17 19:54 | XMS_ITS | Encounter Summary ---
Author Organization [employer] Address [address] [facility] 7[address] [place] [address] Care Team Providers Care Investment Underwriter Name Role Phone Lyn Lee Primary Care Provider [phone] Reason for Visit * Reason Comments Med Refill Encounter Details Date Type Department Care Team (Late st Contact Info) Description 07/27/2025 Refill [facility] MEDICINE [address] [place] [address] Lyn Lee ANP [address] [place] [address] Neuropathic pain Social History Tobacco Use Types Packs/Day Years [...] t he electric, gas, oil or water [employer] threatened to shut off services in your [...] Description 09/25/2025 11:15 AM EST Office Visit [facility] MEDICINE [address] [place] [address] Betsy Lee MD [address] [place] [address] 10/19/2025 11:00 AM EST Office Visit [address] [address] Lyn Lee ANP [address] [place] [address] documented as of this encounter Visit Diagnoses Diagnosis Neuropathic pain documented in this encounter Care Teams Investment Underwriter Relationship Specialty Start Date End Date Lyn Lee ANP [address] [place] [address] PCP - General Family Medicine 05/09/21 [facility] 08/19/24 documented as of this encounter
--- OUTSIDE RECORDS SUMMARY | 2025-08-17 19:54 | XMS_ITS | Data Portability ---
Author Organization [facility] [employer] [facility] Address [address] [place] [phone] Care Team Providers Care Manager Support Services Name Role Phone HIM CCA OTHER Assessment No assessment recorded. Plan of Treatment Reminders Order Date Submit Date Provider Last Modified By Organization Details Last Modified Time Details Appointments None recorded. Lab rapid SARS CoV 2 Ag, QL IA, respirator y specimen 2024 [facility], [address] [place] [address], [id number] 5 22:07:00 rapid flu (A+B) 2024 [facility], [address] [place] [address], [phone] 5 22:03:58 Referral None recorded. Procedures None recorded. Surgeries None recorded. Imaging None recorded. Medication Orders albuterol sulfate HFA 90 mcg/actuat ion aerosol inhaler 2024 025 ATHENAFAX [facility]/Pharmacy #[id number], [address] [place], [address], 5 17:20:19 ondansetro n 4 mg disintegra ting tablet 2024 025 [facility]/Pharmacy #[id number], [address] [place], [address], 5 17:10:43 Patient TargetsNo targets recorded. Patient [...] Not available Not available Not available 08/05/2025 93757 8001 SNOMED Not Available [facility] - production 5 10:18:24 gabapenti n medicatio n Not available Not available Not available 08/05/2025 72233 RxNorm [facility] Available [facility] 10:18:24 dimethyl fumarate medicatio n angioedem a Not available [facility] 08/05/20252017 36958 78 RxNorm Repor ts havin g slow [...] Details Last Updated DateTime 5 100.4 [degF] 19506.9 44 g 115 /min 20 /min 157.48 [...] ICD10 Code Diagnosis IMO Codes Diagnosis Note [id number] Bailey Mujica MD [facility] ED Medical [facility] [address] [place] [address] 08/05/2025 17:08:50 08/06/2025 14:13:58 Viral upper respiratory tract infection [id number] J06.9 [id number] 49 year old female being evaluated for [...] assessment and plan as documented by the correctional substance abuse counselor. I provided real-time medical direction for this [...] by Organization Details LastModified Time None Recorded Advance Directives Directive None Recorded Payers Insurance Date Sequence Insurance Name Policy Number Policy Francis Covered Member ID Francis Member ID Guarantor Name 08/05/2025 1 [facility] - DOS ON OR AFTER 2022 - DUAL ELIGIBLE - FPC OPTIONS AND ONE CARE (MEDICARE REPLACEMENT/ADV ANTAGE - HMO) Beverly Chi [id number] Beverly Chi Notes Date Note Type Note [...] signs of when to seek emergency care. Process [employer] Organization Information for Nicole Crawford Business Legal Name: [employer]. Address: [address] [place] [address], Paraplanner: Alexander ESPITIA No.: [id number] Process Project Engineer POC Test Results from Nicole Crawford Rapid COVID antigen (16:22:51) COVID: - Rapid influenza antigen (16:22:52) Flu: - .................... .................... .................... .................... .................... .................... .................... . Process Project Engineer Note From Nicole Crawford: Sent to a [...] via oral fluids and Zofran ODT 4mg. [facility] orders Zofran ODT 4mg. 5 med rights verified; Zofran ODT 4mg administered; Pt advised to follow up with [facility] if needed. Red flags discussed. Pt has no further questions. [facility] Lab Orders: rapid SARS CoV 2 Ag, QL IA, respiratory specimen: Performed rapid flu (A+B): Performed [facility] Medication Orders: ondansetron 4 mg disintegrating tablet: Administered .................... .................... .................... .................... .................... .................... .................... . [facility] Consulted: Bailey Mujica .................... .................... .................... .................... .................... .................... .................... . Disposition: Fulfilled Bailey Mujica MD [address] [facility],[address], [place], [address], [facility] [employer] 08/05/2025 22:27:29 OBGyn Episode No OBEpisode recorded.
--- OUTSIDE RECORDS SUMMARY | 2025-08-17 19:54 | XMS_ITS | Encounter Summary ---
Author Organization [facility] Address [address] [place] [address] Care Team Providers Care Lunch Counter Manager Name Role Phone Lyn Lee Primary Care Provider [phone] Reason for Visit * Reason Onset Date Comments [facility] 08/17/2022 Encounter Details Date Type Department Care Team (Late st Contact Info) Description 08/17/2022 Telephone [facility] Central Scheduling Department [address] [place] [address] Telephone Intake, Staff [facility] Social History Tobacco [...] Team (Late st Contact Info) Description 09/25/2025 1:00 PM EST Office Visit [facility] [address] [place] [address] Renal Social Worker: Sri Oconnor MD [address] [place] [address] documented as of this encounter Visit Diagnoses Not on filedocumented in this encounter Care Teams Lunch Counter Manager Relationship Specialty Start Date End Date Lyn Lee [address] [place] [address] PCP - General 08/29/21 documented as of this encounter
--- OUTSIDE RECORDS SUMMARY | 2025-08-17 19:54 | XMS_ITS | Encounter Summary ---
Author Organization [employer] Address [address] [facility] [address] [place] [address] Care Team Providers Care Grid Casting Machine Operator Helper Name Role Phone Lyn Lee Primary Care Provider Reason for Visit * Reason Onset Date Comments Nurse Triage 06/23/2025 Encounter Details Date Type Department Care Team ([facility] st Contact Info) Description 06/23/2025 Telephone [facility] MEDICINE [address] [place] [address] Lyn Lee ANP [address] [place] [address] Nurse Triage Social History Tobacco Use Types Packs/Day Years [...] t he electric, gas, oil or water [employer] threatened to shut off services in your [...] encounter Miscellaneous Notes * Telephone Encounter - Flory Katz RN - 06/24/2025 3:54 PM EDT Returned call to pt, got verbal consent to speak with SHABBIR Pollard. Advised that lower dose of Trulicity sent, to let [facility] know if PA needed. Reviewed plan of care for constipation: Miralax PRN, senna,Mag oxide. Discussed homecare measures to prevent constipation: increasing water, fiber, movement. Advised pt and PHOTOGRAPHIC HAND DEVELOPER to call back if constipation does not improve, PHOTOGRAPHIC HAND DEVELOPER verbalized understanding. Called pharmacy [facility], no PA required, ready for pickup no copay. * Telephone Encounter - Janis Boston RN - 06/23/2025 10:56 AM EDT T/C returned to pt's PHOTOGRAPHIC HAND DEVELOPER Latrice who is on speakerphone with pt. She reports ever since Trulicity dose was increased, pt has been having constipation. She reports pt usually has daily BM. Last week Sunday-Sunday pt didn't have BM. When she did have BM it was painful. BM was very large and hard and she had to strain to pass it. Pt has not had another BM since then. Pt has sensation that she needs to have BM but when she tries, nothing happens. Denies vomiting, severe abdominal pain, or any other Sx. She reports that she is taking fiber supplement, magnesium oxide, and senna. Also is eating a high fiber diet and drinking adequate amount of water per PHOTOGRAPHIC HAND DEVELOPER. They are wondering if PCP can send s omething to help with constipation. Pt also requesting to decrease her Trulicity dose back down to her old dose. Informed I would send message and would call them back. Protocol Used: Constipation (Adult) Protocol-Based Disposition: Home Care Positive Triage Question: * Mild constipation * All higher-acuity triage questions were negative Care Advice Discussed: * High Fiber Diet * Drink Adequate Liquids * Telephone Encounter - Martín Mendoza - 06/23/2025 10:35 AM EDT Symptoms: Medication Reaction, Constipation Outcome: Schedule an urgent appointment (within 1 hour) or talk to a nurse or provider soon Reason: Caller denied all higher acuity questions Please contact pt/PHOTOGRAPHIC HAND DEVELOPER at [phone]. documented in this encounter Plan of Treatment Upcoming Encounters Date Type Department Care Team (Late st Contact Info) Description 09/25/2025 11:15 AM EST Office Visit [address] [address] Betsy Lee MD [address] [place] [address] 10/19/2025 11:00 AM EST Office Visit [facility] MEDICINE [address] [place] [address] Lyn Lee ANP [address] [place] [address] documented as of this encounter Visit Diagnoses Not on filedocumented in this encounter Care Teams Grid Casting Machine Operator Helper Relationship Specialty Start Date End Date Lyn Lee ANP [address] [place] [address] PCP - General Family Medicine 05/09/21 [place] [facility] 08/19/24 documented as of this encounter
--- OUTSIDE RECORDS SUMMARY | 2025-08-17 19:54 | XMS_ITS | Clinical Summary ---
Author Organization [facility] Address [address] [place] [address] Care Team Providers Care Order Picker/Assembler Name Role Phone Lyn Lee Primary Care Provider [phone] Allergies Active Allergy Reactions Criticality Noted Date [...] 11 05/08/2023 2:47 PM EDT 2 Active Additional Information Patient not taking.Reported on 05/26/2025 mirtazapine (REMERON) 30 mg tabletIndicatio ns:Insomnia due [...] PARA DORMIR 90 capsule 2 4 Active Alcohol Prep Pads pads, medicated USE SEG N LO INDICADO DOS VECES AL D A 4 Active Laxative, bisacodyl, 5 mg EC tablet TAKE 4 TABLETS BY MOUTH AT NOON THE DAY BEFORE COLONOSCOPY 4 Active clotrimazole (LOTRIMIN) 1% cream APLIQUE AL JAVIER AFECTADA DOS VECES AL D A POR 28 KIM 4 Active Arnuity Ellipta 200 mcg/actuation blister with device INHALE UN SOPLIDO EN LA MA ALLY 4 Active metFORMIN (GLUCOPHAGE) 500 mg tablet TOME BERNADETTE TABLETA (500 MG) POR V A ORAL CON EL DESAYUNO AND WITH EVENING MEAL 4 Active senna 8.6 mg tablet TOME DOS TABLETAS POR V A ORAL TODOS LOS D CUANDO SEA NECESARIO PARA EL ESTRE IMIENTO 4 Active magnesium oxide (MAG-OX) 400 mg (241.3 mg mag) tablet Take 1 tablet (241.3 mg of elemental magnesium total) by mouth once a day. 30 tablet 1 5 Active topiramate (TOPAMAX) 50 mg tabletIndicatio ns:Seizure disorder,Anxiet y and depression Take 1 tablet (50 mg total) by mouth See admin instructions. TOME BERNADETTE TABLETA POR VIA ORAL CADA MANANA 2 AL ACOSTARSE 270 tablet 1 5 Active levETIRAcetam (KEPPRA) 750 mg tabletIndicatio ns:Seizure disorder Take one tab q am and 2 tabs q pm 270 tablet 5 5 Active Trulicity 0.75 mg/0.5 mL injection dose SMARTSI.75 Milligram(s) SUB-Q Once a Week Active amitriptyline (ELAVIL) 10 mg tabletIndicatio ns:Neuropathic pain syndrome (non-herpetic) Take 2 tablets (20 mg total) by mouth nightly. 180 tablet 5 08/24/20 25 Active baclofen (LIORESAL) 10 mg tabletIndicatio ns:Spasticity Take 2 tablets (20 mg total) by mouth 3 times a day. 540 tablet 5 Active ofatumumab (Kesimpta Pen) 20 mg/0.4 mL pen injectorIndicat ions:MS (multiple sclerosis) Inject 0.4 mL (20 mg total) under the skin every 28 days. 0.4 mL 11 5 Active Active Problems Problem Noted Date Diagnosed Date Cognitive deficits 09/04/2023 Assessment & Plan (09/04/2023 9:46 AM EST): PLAN: 1. We will obtain metabolic workup. 2. We will proceed with neuropsychologic evaluation once her mood is stable. Neuropathic pain syndrome (non-herpetic) 023 Assessment & Plan (05/28/2025 9:10 AM EDT): PLAN: 1. We will increase the dose of baclofen to 20 mg in the night. 2. We will restart amitriptyline and increase the dose to 20 mg daily. Assessment & Plan (11/24/2024 12:56 PM EDT): PLAN: 1. We will increase the dose of baclofen to 20 mg in the night. 2. We will increase the dose of amitriptyline to 20 mg daily. 3. Continue to follow up with pain management. 4. We discussed magnesium. Assessment & Plan (11/07/2023 10:44 AM EST): [...] use 02/22/2021 Spasticity 02/21/2021 Assessment & Plan (05/28/2025 9:10 AM EDT): PLAN: 1. We recommended baclofen 20 mg 3 times a day. 2. We discussed magneiusm. Assessment & Plan (11/24/2024 12:57 PM EDT): PLAN: 1. We will continue with the dose of baclofen to 15 mg a.m., p.m. and 20 mg at night. 2. We discussed magneiusm. Assessment & Plan (11/07/2023 10:45 AM EST): [...] 1. Continue to follow-up with urology in [place]. 2. Reinforced limiting caffeine and Kegel's. Psychogenic nonepileptic seizure 04/11/2020 Assessment & Plan (03/16/2022 12:05 PM EDT): PLAN: 1. Continue to follow-up with Dr. Barnett. 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 We had a long discussion about the effects of depression/anxiety on MS symptoms and pain. 2. We discussed referral to behavioral health as well as neuropsychiatry. Assessment & Plan (11/24/2024 12:58 PM EDT): PLAN: 1. Continue to follow up with psychiatry and therapy. Assessment & Plan (11/07/2023 10:45 AM EST): [...] MS. 3. We will refer her to adoption social worker. Assessment & Plan (02/21/2021 7:08 [...] MS (multiple sclerosis) 06/13/2018 Assessment & Plan (11/24/2024 12:56 PM EDT): PLAN: 1. We will re evaluate in person due to ongoing symptoms. 2. We will discuss escalation of treatment if there is changes on exam. 3. We will obtain MRI of the Brain and Cervical Spine next year. 4. We will refer her to ophthalmology. Assessment & Plan (11/07/2023 10:44 AM EST): [...] Continue with vitamin D supplementation. Seizure disorder 06/13/2018 Assessment & Plan (05/28/2025 9:10 AM EDT): PLAN: 1. Continue with the current dose of Keppra. Assessment & Plan (11/24/2024 12:56 PM EDT): PLAN: 1. Continue with the current dose of Keppra. Assessment & Plan (09/04/2023 9:43 AM EST): PLAN: 1. Continue with the current dose of Keppra. Assessment & Plan (02/21/2021 7:08 AM EDT): PLAN: 1. Continue to follow-up with neuropsychiatry. 2. We discussed admission to EMU for better characterization of her seizures. Assessment & Plan (05/04/2020 10:56 AM EDT): PLAN: 1. Continue to follow-up with neuropsychiatry. Encounters Date Type Department Care Team Description 05/29/2025 Refill [facility] [address] [place] [address] Telehealth Case Manager: Sri Oconnor MD MS (multiple sclerosis) (HCC) 05/28/2025 Telephone [facility] [address] [place] [address] Telehealth Case Manager: Rajinder Bolton Prior Authorization (TIMOTHY DAWSON ([place])) 05/26/2025 11:00 AM EDT Office Visit [facility] [address] [place] [address] Telehealth Case Manager: Sri Oconnor MD MS (multiple sclerosis) (HCC) (Primary Dx); Neuropathic pain syndrome (non-herpetic); Spasticity; Seizure disorder (HCC); Anxiety and depression from Last 3 Months Family History Medical [...] Sign Reading Time Taken Comments Blood Pressure 117/79 05/26/2025 10:52 AM EDT Pulse 78 05/26/2025 10:52 AM EDT Temperature 36.8 C (98.3 F) 03/06/2024 12:52 PM EDT Respiratory Rate 16 01/14/2024 1:09 PM EDT Oxygen Saturation 99% 05/26/2025 10: 52 AM EDT Inhaled Oxygen Concentration - - Weight 79.7 kg (175 lb 11.3 oz) 025 10:52 AM EDT Height 154.9 cm (5' 1 ) 01/14/2024 1:09 PM EDT Body Mass Index 33.2 01/14/2024 1:09 PM EDT Plan of Treatment Upcoming Encounters Date Type Department Care Team (Late st Contact Info) Description 09/25/2025 1:00 PM EST Office Visit [facility] [address] [place] [address] Telehealth Case Manager: Sri Oconnor MD [address] [place] [address] [phone] Health Maintenance Due Date Last Done Comments Cervical Cancer Screening 1973 Cologuard 1973 Colonoscopy 1973 HIV Screening 1973 HPV and Pap Smear 1973 Pap Smear 1973 Sigmoidoscopy 1973 Hepatitis B Vaccines (1 of 3 - 19+ 3-dose series) 1992 Mammogram 10/17/2019 10/17/2017 CT Lung Cancer Screening (Baseline) 12/23/2023 Zoster Vaccines (1 of 2) 12/23/2023 Alcohol/Substance Use Screening 09/17/2024 Depression Screening and Follow-Up 09/17/20242023 Social Drivers of Health Ashwini ual Screening 09/17/2024 Influenza Vaccine (#1) 2025 , 09/11/2019, 10/20/2018, Additional history exists DTaP,Tdap,and Td Vaccines (2 - Td or Tdap) 05/17/2025 05/17/2015, 11/01/2007 COVID-19 Vaccine (3 - 2024-2 6 season) 2025 02/21/2021, 01/24/2021 Colon Cancer Screening 08/20/2025 FOBT / Fit Test 08/20/2025 08/20/2024, 12/27/2022 Hepatitis C Screening Completed 05/16/2019 Pneumococcal Vaccine: 50+ Years Completed 03/27/2024, 04/12/2016, 10/07/2014 Procedures * Due to [place] [employer]™ law, this organization might not be sharing negative HIV tests. Procedure Name Priority Date/Time Associated Diagnosis Comments CBC AUTO DIFFERENTIAL Routine 05/26/2025 12:48 PM EDT MS (multiple sclerosis) (HCC) COMPREHENSIVE METABOLIC PANEL Routine 05/26/2025 12:48 PM EDT MS (multiple sclerosis) (HCC) IGG Routine 05/26/2025 12:48 PM EDT MS (multiple sclerosis) (HCC) IGM Routine 05/26/2025 12:48 PM EDT MS (multiple sclerosis) (HCC) NEUROFILAMENT LIGHT [id number] Routine 05/26/2025 12:48 PM EDT MS (multiple sclerosis) (HCC) HEPATITIS PANEL, ACUTE Routine 9 3:05 PM EDT Exposure to hepatitis B from Last 3 Months or Most Recently Relevant to Health Maintenance Results * Due to [place] [employer]™ law, this organization might not be sharing negative HIV tests. * Neurofilament Light Chain, Plasma (05/26/2025 12:48 PM EDT) Pathologist [facility] Neurofilament Light Chain, Plasma 10.7 < or = 22.4 pg/mL 05/27/2025 2:57 PM EDT [facility] Comment: As of 2024, [facility] has updated the Neurofilament Light Chain (NfL) methodology. If patient is undergoing serial monitoring of NfL levels, rebaselining by requesting that this sample also be run on the previous assay method for comparison purposes is recommended. Rebaseline of this sample at no charge will be available until 11/13/2025 and the rebaseline result will be added to this report. Contact [facility] at to request this service. For [place] patients, call [phone]. ADDITIONAL INFORMATION The testing method is a chemiluminescent enzyme immunoassay for the quantitative determination of NfL in plasma manufactured by [employer]. and performed on the [employer] analyzer. Values obtained with different methods may be different and cannot be used interchangeably. This test was developed and its performance characteristics determined by [facility] in a manner consistent with CLIA requirements. It has not been cleared by the [place] Food and Drug Administration. Test Performed by: [facility] [place] [address] [place] [address] Body Technician: Maycol Pulliam Ph.D.; CLIA# [id number] Blood Structure of peripheral vein / Unknown Venipuncture / Unknown 05/26/2025 12:48 PM EDT 05/26/2025 12:59 PM EDT us Sri Ann MD LAB BLOOD ORDERABLE S Final Result [facility] [address] [place] [address], * (ABNORMAL) CBC Auto Differential (05/26/2025 12:48 PM EDT) Pathologist [facility] WBC 9.3 3.8 - 10.8 10*3/uL 05/26/2025 1:07 PM EDT [facility] RBC 5.27(H) 3.80 - 5.10 10*6/uL 05/26/2025 1:07 PM EDT [facility] Hemoglobin 15.5 11.7 - 15.5 g/dL 05/26/2025 1:07 PM EDT [facility] Hematocrit 46.4(H) 35.0 - 45.0 % 05/26/2025 1:07 PM EDT [facility] MCV 88.0 80.0 - 100.0 fL 05/26/2025 1:07 PM EDT [facility] MCH 29.4 27.0 - 33.0 pg 05/26/2025 1:07 PM EDT [facility] MCHC 33.4 32.0 - 36.0 g/dL 05/26/2025 1:07 PM EDT [facility] RDW 13.2 11.0 - 15.0 % 05/26/2025 1:07 PM EDT [facility] Platelets 220 140 - 400 10*3/uL 05/26/2025 1:07 PM EDT [facility] MPV 11.0 7.5 - 12.5 fL 05/26/2025 1:07 PM EDT [facility] Neutrophil % 62.6 % 05/26/2025 1:07 PM EDT [facility] Immature Grans % 0.3 0.0 - 0.9 % 05/26/2025 1:07 PM EDT [facility] Lymphocyte % 25.6 % 05/26/2025 1:07 PM EDT [facility] Monocyte % 6.4 % 05/26/2025 1:07 PM EDT [facility] Eosinophil % 4.5 % 05/26/2025 1:07 PM EDT [facility] Basophil % 0.6 % 05/26/2025 1:07 PM EDT [email or web address] Neutrophil # 5.82 1.50 - 7.80 10*3/uL 05/26/2025 1:07 PM EDT [facility] Immature Grans # 0.03 <=0.03 10*3/uL 05/26/2025 1:07 PM EDT [facility] Lymphocyte # 2.40 0.85 - 3.90 10*3/uL 05/26/2025 1:07 PM EDT [facility] Monocyte # 0.60 0.20 - 0.95 10*3/uL 05/26/2025 1:07 PM EDT [email or web address] Eosinophil # 0.40 0.02 - 0.50 10*3/uL 05/26/2025 1:07 PM EDT [facility] Basophil # 0.10 0.00 - 0.20 10*3/uL 05/26/2025 1:07 PM EDT [email or web address] nRBC % 0.0 /100 WBCs 05/26/2025 1:07 PM EDT [email or web address] nRBC # <0.01 <0.01 10*3/uL 05/26/2025 1:07 PM EDT [facility] Blood Structure of peripheral vein / Unknown Venipuncture / Unknown 05/26/2025 12:48 PM EDT 05/26/2025 12:59 PM EDT us Sri Ann MD LAB BLOOD ORDERABLE S Final Result [facility] [address] [place] [address], * (ABNORMAL) IgM (05/26/2025 12:48 PM EDT) Immunoglobulin M 37(L) 50 - 300 mg/dL 05/26/2025 7:45 PM EDT [facility] Blood Structure of peripheral vein / Unknown Venipuncture / Unknown 05/26/2025 12:48 PM EDT 05/26/2025 12:59 PM EDT Narrative [facility] - 05/26/2025 7:45 PM EDT [facility] Received Date:[id number] Sri Ann MD LAB BLOOD ORDERABLE S Final Result Performing Organization Address City/[facility]/ZIP Co de Phone Number [facility] [address], [place] [address], [place] [phone] [facility] [address], [place] [address], [place] [phone] * IgG (05/26/2025 12:48 PM EDT) Pathologist [facility] IgG, Serum 989 600 - 1640 mg/dL 05/26/2025 7:45 PM EDT [facility] Blood Structure of peripheral vein / Unknown Venipuncture / Unknown 05/26/2025 12:48 PM EDT 05/26/2025 12:59 PM EDT Narrative [facility] - 05/26/2025 7:45 PM EDT [facility] Received Date:[id number] Sri Ann MD LAB BLOOD ORDERABLE S Final Result [facility] [address] [facility] [address]rd Floor, [place] [address], [place] [phone] [facility] [address], [place] [address], [place] [phone] * Comprehensive Metabolic Panel (05/26/2025 12:48 PM EDT) Pathologist [facility] NA 139 135 - 145 mmol/L 05/26/2025 1:36 PM EDT [facility] K 4.0 3.5 - 5.3 mmol/L 05/26/2025 1:36 PM EDT [email or web address] Cl 105 98 - 107 mmol/L 05/26/2025 1:36 PM EDT [facility] CO2 25 22 - 32 mmol/L 05/26/2025 1:36 PM EDT [facility] Anion Gap 9 5 - 15 05/26/2025 1:36 PM EDT [facility] Glucose 99 65 - 99 mg/dL 05/26/2025 1:36 PM EDT [facility] Creatinine 0.86 0.50 - 1.20 mg/dL 05/26/2025 1:36 PM EDT [facility] Calcium 9.8 8.6 - 10.5 mg/dL 05/26/2025 1:36 PM EDT [facility] Total Protein 7.5 6.0 - 8.0 g/dL 05/26/2025 1:36 PM EDT [facility] Albumin 4.6 3.5 - 5.2 g/dL 05/26/2025 1:36 PM EDT [facility] Bilirubin, Total 0.3 0.2 - 1.2 mg/dL 05/26/2025 1:36 PM EDT [facility] Alkaline Phosphatase 83 35 - 129 U/L 05/26/2025 1:36 PM EDT [facility] AST 16 10 - 40 U/L 05/26/2025 1:36 PM EDT [facility] ALT 13 10 - 40 U/L 05/26/2025 1:36 PM EDT [facility] BUN 9 7 - 23 mg/dL 05/26/2025 1:36 PM EDT [facility] eGFR 82 >=60 mL/min/1. 73m2 05/26/2025 1:36 PM EDT [facility] Comment:The estimated glomer ular filtration rate (eGFR) is calculated using a new formula developed by the NKF-ASN task force to eliminate race-based correction factors. The new formula uses serum/plasma creatinine, age, and gender to determine eGFR. A value below 60mls/min might indicate kidney disease and will be flagged. For additional information, see Garcia et al, Am J Kidney Dis. 2021;79(2):268- 288, A Unifying Approach for GFR estimation: Recommendations of the NKF-ASN Task Force on Reassessing the Inclusion of Race in Diagnosing Kidney Disease . Globulin, Total 2.9 2.1 - 4.2 g/dL 05/26/2025 1:36 PM EDT [facility] A/G Ratio 1.6 1.5 - 3.0 05/26/2025 1:36 PM EDT [email or web address] Blood Structure of peripheral vein / Unknown Venipuncture / Unknown 05/26/2025 12:48 PM EDT 05/26/2025 1:04 PM EDT us Sri Ann MD LAB BLOOD ORDERABLE S Final Result [email or web address] [address] [place] [address], * Hepatitis Panel, Acute (05/16/2019 3:05 PM EDT) Hepatitis A IgM NON-REACT MARGY NON-REACT MARGY 05/17/2019 3:02 AM EDT [facility] Hepatitis B Surface Antigen NON-REACT MARGY NON-REACT MARGY 05/17/2019 3:02 AM EDT [facility] Hepatitis B Core Antibody NON-REACT MARGY NON-REACT MARGY 05/17/2019 3:02 AM EDT [facility] Hepatitis C Antibody NON-REACT MARGY NON-REACT MARGY 05/17/2019 3:02 AM EDT [facility] Signal To Cut-Off 0.02 <1.00 05/17/2019 3:02 AM EDT [email or web address] Comment: HCV antibody was non-reactive. There is no laboratory evidence of HCV infection. In most cases, no further action is required. However, if recent HCV exposure is suspected, a test for HCV RNA (test code 38087) is suggested. For additional information please refer to http://education.[employer]/faq/YKD65g1 (This link is being provided for informational/ educational purposes only.) Blood specimen (specimen) Structure of peripheral vein / Unknown Venipuncture / Unknown 05/16/2019 3:05 PM EDT 05/16/2019 3:29 PM EDT Narrative [facility] - 05/17/2019 3:02 AM EDT [facility] Received Date:[id number] us Alejnadra Sotelo DO LAB BLOOD ORDERABLES Final Re sult [facility] [address], [place] [address], [place] [phone] [facility] [address], [place] [address], [place] [phone] from Last 3 Months or Most Recently Relevant to Health Maintenance Insurance [address] [address] [employer] Care Teams Order Picker/Assembler Relationship Specialty Start Date End Date Lyn Lee [address] [place] [id number] PCP - General 08/29/21
--- OUTSIDE RECORDS SUMMARY | 2025-08-17 19:55 | XMS_ITS | Encounter Summary ---
Author Organization [email or web address] Address [address] [facility] [address] [place] [address] Care Team Providers Care Terminal Worker Name Role Phone Lyn Lee Primary Care Provider Reason for Visit * Reason Onset Date Comments Med Refill 07/24/2024 Encounter Details Date Type Department Care Team ([facility] st Contact Info) Description 07/24/2024 Telephone [facility] [address] [place] [address] Lyn Lee ANP [address] [place] [address] Med Refill Social History Tobacco Use Types [...] the past 12 months, has t he [employer], gas, oil or water ihiji threatened to shut off services in your [...] MCG (1999) capsule To be sent to: [facility]/pharmacy #[address] [place] [address] documented in this encounter Plan of Treatment Upcoming Encounters Date Type Department Care Team (Late st Contact Info) Description 09/25/2025 11:15 AM EST Office Visit [facility] [address] [place] [address] Betsy Lee MD [address] [place] [address] 10/19/2025 11:00 AM EST Office Visit [facility] [address] [place] [address] [phone] Lyn Lee ANP [address] [place] [address] documented as of this encounter Visit Diagnoses Not on filedocumented in this encounter Care Teams Terminal Worker Relationship Specialty Start Date End Date Lyn Lee ANP [address] [place] [address] PCP - General Family Medicine 05/09/21 Roberto BRASHER 08/19/24 documented as of this encounter
--- OUTSIDE RECORDS SUMMARY | 2025-08-17 19:55 | XMS_ITS | Encounter Summary ---
Author Organization [employer] Address [address] [facility] [address] [place] [address] Care Team Providers Care Technical Proposal Writer Name Role Phone Lyn Lee DENI Primary Care Provider [phone] Encounter Details Date Type Department Care Team (Latest Contact Info) Description 08/17/2025 Travel Social History Tobacco Use Types Packs/Day Years [...] AM EDT documented as of this encounter Functional Status * Over the [...] half the days 08/17/2025 2:03 PM Quan Cochran MA * Thoughts that you would be [...] diff erent things 3 08/17/2025 2:03 PM Quan Cochran MA Trouble relaxing 3 08/17/2025 2:03 PM Quan Lozano MA Being so restless that it is hard to sit still 3 08/17/2025 2:03 PM Quan Cochran MA Becoming easily annoyed or irritable 3 08/17/2025 2:03 PM Quan Cochran MA Feeling afraid as if somethi ng awful might happen 0 08/17/2025 2:03 PM Quan Cochran MA CESILIA-7 Total Score 18 08/17/2025 2:03 PM Quan Cochran MA documented as of this encounter Plan of Treatment Upcoming Encounters Date Type Department Care Team (Late st Contact Info) Description 09/25/2025 11:15 AM EST Office Visit [facility] MEDICINE [address] [place] [phone] Betsy Lee MD [address] [place] [address] 10/19/2025 11:00 AM EST Office Visit [facility] [address] [place] [phone] Lyn Lee, ANP [address] [place] [address] documented as of this encounter Goals Goal Patient Goal Type Associated Problems Recent Progress Patient-Stated? Author Help patients manage their type 2 diabetes Care Plan Help patients manage their type 2 diabetes No Divya Wood, OD Weekly blood pressure task Care Plan Weekly blood pressure task No TarMauro wongDivya, OD Help patients manage their type 2 diabetes Care Plan Help patients manage their type 2 diabetes No Mauro Woodssica, OD Patient has chronic kidney disease Care Plan Patient has chronic kidney disease No Mauro Woodssica, OD Weekly blood pressure task Care Plan Weekly blood pressure task No TarMauro wongDivya, OD Patient has chronic kidney disease Care Plan Patient has chronic kidney disease No Divya Wood, OD Weekly blood pressure task Care Plan [...] documented as of this encounter Care Teams Technical Proposal Writer Relationship Specialty Start Date End Date Lyn Lee ANP [address] [place] [address] [place] [address] PCP - General Family Medicine 05/09/21 Roberto BARSHER 08/19/24 documented as of this encounter
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
--- OUTSIDE RECORDS SUMMARY | 2025-08-17 19:55 | XMS_ITS | Encounter Summary ---
Author Organization [employer] Address [address] [facility] [address] [place] [address] Care Team Providers Care Mannequin Molder Name Role Phone Lyn Lee Primary Care Provider [phone] Encounter Details Date Type Department Care Team ([facility] st Contact Info) Description 01/25/2024 Orders Only [facility] MEDICINE [address] [place] [address] Lyn Lee ANP [address] [place] [address] Social History Tobacco Use Types Packs/Day Years [...] Description 09/25/2025 11:15 AM EST Office Visit [address] [address] Betsy Lee MD [address] [place] [phone] 10/19/2025 11:00 AM EST Office Visit [address] [address] Lyn Lee ANP [address] [place] [phone] documented as of this encounter Visit Diagnoses Not on filedocumented in this encounter Care Teams Mannequin Molder Relationship Specialty Start Date End Date Lyn Lee ANP [address] [place] [phone] PCP - General Family Medicine 05/09/21 Roberto A 08/19/24 documented as of this encounter
--- OUTSIDE RECORDS SUMMARY | 2025-08-17 19:55 | XMS_ITS | Clinical Summary ---
Author Organization [facility] Address [address] [place] [address] Care Team Providers Care Mold Puller Name Role Phone Bradley Maddox MD Primary [...] 12/23/2023 Zoster Vaccines (1 of 2) 12/23/2023 Depression Screening 09/17/2024 COVID-19 Vaccine (1 - 2024-2 6 season) 2025 Influenza Vaccine (#1) 2025 RSV Immunization Adult Patie nts (1 - 1-dose 75+ series) 2048 HIB Vaccines Aged Out No longer eligi [...] age to complete this topic Care Teams Mold Puller Relationship Specialty Start Date End Date Bradley Maddox MD [address] [place] [phone] PCP - General Internal Medicine 11/07/18
== END 2025-08-17 19:52 | disposition home or self-care (01) ==
LOC: HO.LNP 19:51
PROVIDERS: Visit Provider Nurse Practitioner Primary Care
DX: E11.65 Type 2 diabetes mellitus with hyperglycemia (principal)
CPT/HCPCS: 82043; 82570

== ENCOUNTER 2025-08-25 11:04 | Outpatient (REF) | payer OTHER, SELFPAY ==
--- NOTE | ~2025-08-25 | US_ITS ---
EXAMINATION(S): 1. MM DIAGNOSTIC DIGITAL BREAST TOMOSYNTHESIS, BILATERAL 2. TARGETED ULTRASOUND OF THE LEFT BREAST CLINICAL INFORMATION: -Per requisition: left breast pain outer lower quadrant -History of left breast MR guided needle core biopsy on November 08, 2017. Pathology results showed benign focally fibrosis breast tissue with no diagnostic abnormality. COMPARISON: Comparison made to multiple prior, most recent November 12, 2023, and most remote August 29, 2016. TECHNIQUE: Digital breast tomosynthesis is performed in both the mediolateral oblique and craniocaudal views along with computer-aided detection (CAD). Synthesized 2D images are generated from the tomosynthesis. Triangular skin marker is placed at the location of the left breast palpable concern as indicated by the patient, located in the lateral breast at approximately 3:00 position. FINDINGS: BREAST COMPOSITION: There are scattered areas of fibroglandular density. RIGHT BREAST: No significant masses, suspicious calcifications or other abnormalities are seen. LEFT BREAST: Tissue marker from previous needle core biopsy. No significant masses, suspicious calcifications or other abnormalities are seen. In particular, no suspicious mammographic findings adjacent to the triangular skin marker placed in the lateral breast along the 3:00 axis. Targeted ultrasound of the left breast was performed at the location of the focal pain as indicated by the patient. The survey performed along the 2:00-4:00 axis did not reveal suspicious sonographic findings. US/US Breast LT Limited Mamm Only IMPRESSION: RIGHT BREAST: Negative, no mammographic evidence of malignancy. Normal interval follow-up is recommended in 12 months. LEFT BREAST: Benign, no evidence of malignancy. No suspicious abnormality to accounts for patient's concern of focal pain. Clinical follow-up is recommended, otherwise, normal interval follow-up mammogram is recommended in 12 months. ASSESSMENT: BI-RADS: Category 2: Benign RECOMMENDATION: 1. Patient should be managed based on the clinical impression. 2. Otherwise, routine annual screening mammography. Results were provided to the patient at time of visit by the technologist. This patient's information was entered into a reminder system with a target due date for their next mammogram. Electronically signed by: Gail Coley MD 08/25/2025 01:11 PM [facility]
== END 2025-08-25 11:05 | disposition home or self-care (01) ==
LOC: HO.MAMMO 11:04
PROVIDERS: PCP Nurse Practitioner Primary Care; Visit Provider Nurse Practitioner Primary Care
DX: N64.4 Mastodynia (principal)
CPT/HCPCS: 76642; 77062; 77066

== ENCOUNTER → 2025-08-25 11:30 | Outpatient (BNV) | payer OTHER, SELFPAY | PROVIDERS: PCP Nurse Practitioner Primary Care; Visit Provider Radiology Body Imaging | DX: N64.4 Mastodynia (principal) | CPT/HCPCS: 76642; 77066; G0279 ==